=== PATIENT | male | born 1960 | race Hispanic/Latino ===

== ENCOUNTER 2020-08-14 12:03 | Emergency (ER) | payer BC, SELFPAY ==
--- OUTSIDE RECORDS SUMMARY | 2020-08-14 12:10 | XMS REPORT | Summary of Care ---
:1960 Author Organization [facility] Address [address] [place] [address] Care Team Providers Name Role Phone Nestor Sy Unavailable KERVIN Hamilton Electronics Test Engineer (Nurse Practitioner) Endy Murillo MD Primary Care Provider Reason for Visit Reason Comments Assessment Diarrhea Nausea Encounter Details Date Type Department Care Team Description 07/04/2020 Telephone [facility] Pediatric Oscar Murillo ssment; Diarrhea; and Adult Primary MD Endy Nausea Care- [address] [place] [place] [address], [address] [address] [place], [place] [phone] [address] [phone] Allergies Active Allergy Reactions Severity Noted Date Comments Tramadol Nausea and/or Vomiting 08/24/2018 documented as of this encounter (statuses as of 07/04/2020) Medications Medication Sig Dispensed Refills Start Date End Date Status LORazepam 1 mg Take 1 tablet 30 tablet 0 03/16/2019 Active tabletIndications: Anxiety by mouth 2 (two) times daily as needed for Anxiety or Agitation. olmesartan 40 mg Take 1 tablet 90 tablet 3 04/14/2019 Active tabletIndications: by mouth Essential hypertension daily. glimepiride 2 mg tablet Take 2 mg by 0 Active mouth daily with breakfast. JANUVIA 100 mg TAKE ONE 30 tablet 2 02/13/2020 Acti ve tabletIndications: Type 2 TABLET BY diabetes mellitus without MOUTH DAILY complication, without long-term current use of insulin ONETOUCH VERIO TEST STRIPS USE THREE 100 Strip 0 03/29/2020 Active strip TIMES A DAY TO TEST BLOOS SUGARS BRILINTA 90 mg TAKE ONE 60 tablet 2 04/16/2020 Acti ve tabletIndications: NSTEMI TABLET BY (non-ST elevated myocardial MOUTH TWICE A infarction) DAY METOPROLOL SUCCINATE XL 100 TAKE ONE 30 tablet 2 04/16/2020 Active mg 24 hr tabletIndications: TABLET BY Essential hypertension MOUTH DAILY PANTOPRAZOLE 40 mg EC TAKE ONE 30 tablet 2 04/16/2020 Active tabletIndications: TABLET BY Gastroesophageal reflux MOUTH DAILY disease without esophagitis ATORVASTATIN 80 mg TAKE ONE 30 tablet 2 04/16/2020 Active tabletIndications: TABLET BY Hypercholesterolemia MOUTH AT BEDTIME ISOSORBIDE MONONITRATE 30 TAKE ONE 30 tablet 2 04/16/2020 Active mg 24 hr tabletIndications: TABLET BY NSTEMI (non-ST elevated MOUTH DAILY myocardial infarction) documented as of this encounter (statuses as of 07/04/2020) Active Problems Problem Noted Date Pleural effusion on left 08/04/2019 NSTEMI (non-ST elevated myocardial infarction) 018 Type 2 diabetes mellitus without complication 09/05/19 16 Essential hypertension 09/05/2015 Stroke 09/05/2015 Hypercholesterolemia 09/05/2015 documented as of this encounter (statuses as of 07/04/2020) Immunizations Name Administration Dates Next Due Influenza Virus Vaccine Quad .5 mL IM 6+ MO 06/15/2019, 07/14 TDAP 12/02/2018 documented as of this encounter Social History Tobacco Use Types Packs/Day Years Used Date Never Smoker Smokeless Tobacco: Never Used Alcohol Use Drinks/Week oz/Week Comments No 0 Standard drinks or equival ent 6.0 occ 6 Cans of beer Sex Assigned at Date Recorded Not on file documented as of this encounter Last Filed Vital Signs Not on filedocumented in this encounter Miscellaneous Notes Telephone Encounter - Lauren Martinez LVN - 07/04/2020 1:21 PM CSTPSS please contact patient and assist with scheduling urgent care sick visit. Thanks. FING MACHINE OPERATOR Telephone Encounter - Oscar Murillo MD - 07/04/2020 1:19 PM CSTPlease ask patient to make an appointment with Urgent Care elephone Encounter - Lauren Martinez LVN - 07/04/2020 1:17 PM CSTAre you willing to see this patient in office with the below symptoms or should we advise an UC visit? FING MACHINE OPERATOR Telephone Encounter - Indy Ya MA - 07/04/2020 9:53 AM CST07/04/20 9:53 AM Routing to correct clinic Indy Ya MA 07/04/2020 9:53 AM elephone Encounter - Santana Acuna - 07/04/2020 9:41 AM CSTPatient states for last few months he cant keep anything down, he feels nausea, has diarrhea and other GI issues. Patient would like an appointment with Dr. Murillo. documented in this encounter Plan of Treatment Health Maintenance Due Date Last Done Comments HEPATITIS C (HCV) SCREEN 1960 EYE EXAM 09/21/1971 Depression Screening 1973 COLON CANCER SCREENING 09/21/2011 ANNUAL FIT/FOBT COLON CANCER SCREENING FIT 09/21/2011 DNA EVERY 3 YEARS COLON CANCER SCREENING 09/21/2011 SIGMOIDOSCOPY EVERY 5 YEARS COLONOSCOPY 09/21/2011 Colorectal Cancer Screening 09/21/2011 Zoster Recombinant Vaccine 09/21/2011 (SHINGRIX) (1 of 2) URINE MICROALBUMIN 09/30/2017 09/30/2016, 09/05/2015 LDL-C 07/05/2019 07/05/2018, 09/30/2016, 09/05/2015 FOOT EXAM 12/15/2019 12/14/2018, 12/14/2018 HgA1C 12/15/2019 06/15/2019, 03/16/2019, 12/14/2018, Additional history exists INFLUENZA VACCINE (#1) 2020 06/15/2019, 08/10/2018 CREATININE (SERUM) 08/04/2020 08/04/2019, 08/01/2019, 08/10/2018, Additional history exists DTaP,Tdap,and Td Vaccines (2 12/02/2028 12/02/2018 - Td) PNEUMOCOCCAL 0-64 YEARS Aged Out No longe r eligible COMBINED SERIES based on patient 's age to complete this topic documented as of this encounter Results Not on filedocumented in this encounter Insurance Payer Benefit Plan Subscriber ID Effective Dates Phone Address Type / Group BCBS OF [facility] [id number] 2018-Prese [phone] [address] [place] [address] [place] PPO/POS [facility] [id number] [place] [address] documented as of this encounter
--- OUTSIDE RECORDS SUMMARY | 2020-08-14 12:10 | XMS REPORT | Summary of Care ---
:1960 Author Organization [facility] Address [address] [place] [address] Care Team Providers Name Role Phone Nestor Sy Unavailable KERVIN Hamilton Color Coater (Nurse Practitioner) Endy Murillo MD Primary Care Provider Reason for Visit Reason Comments Refill Request Encounter Details Date Type Department Care Team Description 07/12/2020 Refill [facility] Oscar Paz MD Refill Request - [address] [place] [address] [place] [address] [phone] Allergies Active Allergy Reactions Severity Noted Date Comments Tramadol Nausea and/or Vomiting 08/24/2018 documented as of this encounter (statuses as of 07/12/2020) Medications Medication Sig Dispensed Refills Start End Date Status Date LORazepam 1 mg Take 1 30 tablet 0 Activ e tabletIndications: tablet by 9 Anxiety mouth 2 (two) times daily as needed for Anxiety or Agitation. olmesartan 40 mg Take 1 90 tablet 3 Act johnson tabletIndications: tablet by 9 Essential hypertension mouth daily. glimepiride 2 mg tablet Take 2 mg by 0 Active mouth daily with breakfast. JANUVIA 100 mg TAKE ONE 30 tablet 2 Activ e tabletIndications: Type 2 TABLET BY 0 diabetes mellitus without MOUTH DAILY complication, without long-term current use of insulin ONETOUCH VERIO TEST USE THREE 100 Strip 0 Active STRIPS strip TIMES A DAY 0 TO TEST BLOOS SUGARS BRILINTA 90 mg TAKE ONE 60 tablet 1 Activ e tabletIndications: NSTEMI TABLET BY 0 (non-ST elevated MOUTH TWICE myocardial infarction) A DAY ISOSORBIDE MONONITRATE 30 TAKE ONE 30 tablet 1 Active mg 24 hr TABLET BY 0 tabletIndications: NSTEMI MOUTH DAILY (non-ST elevated myocardial infarction) METOPROLOL SUCCINATE XL TAKE ONE 30 tablet 1 Active 100 mg 24 hr TABLET BY 0 tabletIndications: MOUTH DAILY Essential hypertension ATORVASTATIN 80 mg TAKE ONE 30 tablet 1 A ctive tabletIndications: TABLET BY 0 Hypercholesterolemia MOUTH AT BEDTIME PANTOPRAZOLE 40 mg EC TAKE ONE 30 tablet 1 Active tabletIndications: TABLET BY 0 Gastroesophageal reflux MOUTH DAILY disease without esophagitis BRILINTA 90 mg TAKE ONE 60 tablet 2 07/12/20 Disco ntinued tabletIndications: NSTEMI TABLET BY 0 20 (non-ST elevated MOUTH TWICE myocardial infarction) A DAY METOPROLOL SUCCINATE XL TAKE ONE 30 tablet 2 Discontinued 100 mg 24 hr TABLET BY 0 20 tabletIndications: MOUTH DAILY Essential hypertension PANTOPRAZOLE 40 mg EC TAKE ONE 30 tablet 2 07/12/20 Discontinued tabletIndications: TABLET BY 0 20 Gastroesophageal reflux MOUTH DAILY disease without esophagitis ATORVASTATIN 80 mg TAKE ONE 30 tablet 2 07/12/20 D iscontinued tabletIndications: TABLET BY 0 20 Hypercholesterolemia MOUTH AT BEDTIME ISOSORBIDE MONONITRATE 30 TAKE ONE 30 tablet 2 06/14 Discontinued mg 24 hr TABLET BY 0 20 tabletIndications: NSTEMI MOUTH DAILY (non-ST elevated myocardial infarction) documented as of this encounter (statuses as of 07/12/2020) Active Problems Problem Noted Date Pleural effusion on left 08/04/2019 NSTEMI (non-ST elevated myocardial infarction) 018 Type 2 diabetes mellitus without complication 09/05/19 16 Essential hypertension 09/05/2015 Stroke 09/05/2015 Hypercholesterolemia 09/05/2015 documented as of this encounter (statuses as of 07/12/2020) Immunizations Name Administration Dates Next Due Influenza [...] Signs Not on filedocumented in this encounter Plan of Treatment Health [...] Results Not on filedocumented in this encounter Visit Diagnoses Diagnosis NSTEMI (non-ST elevated myocardial infar ction) Acute myocardial infarction, subendocard ial infarction, episode of care unspecified Essential hypertension Unspecified essential hypertension Hypercholesterolemia Pure hypercholesterolemia Gastroesophageal reflux disease without esophagitis Esophageal reflux documented in this encounter Insurance Payer Benefit Plan Subscriber ID Effective Dates Phone Address Type / Group [facility] [id number] 2018-Prese [phone] [address] [place] [id number] [place] [address] documented as of this encounter
--- OUTSIDE RECORDS SUMMARY | 2020-08-14 12:10 | XMS REPORT | Continuity of Care Document ---
:1960 Author Organization [facility] t Address [address] [place] [address] Care Team Providers Name Role Phone Endy Murillo MD Attending Clinician Doctor Unassigned, Name Attending Clinician Unavailable Problems This patient has no known problems. Allergies, Adverse Reactions, Alerts This patient has no known allergies or adverse reactions. Medications This patient has no known medications. Procedures This patient has no known procedures. Encounters Start End Encounter Admission Attending Care Care Encounter Source Date/Time Date/Time Type Type Clinicians Facility Department ID 2020-07-12 2020-07-12 [facility] [id number] 00:00:00 00:00:[address] [facility] [id number] [facility] [id number] Professio [phone] [place] [address] Office Building One 2020-07-04 2020-07-[address] [facility] [id number] 00:00:00 00:00:00 [facility] [id number] [facility] [id number] Professio [phone] [place] [address] Building 2020-04-13 2020-04-13 [facility] [id number] 00:00:00 00:00:[address] [facility] [id number] [facility] [id number] Professio [phone] [place] [address] Office Building One 2020-04-10 2020-04-[address] [facility] [id number] 00:00:00 00:00:[address] [facility] [id number] [place] [id number] Professio [phone] [place] [address] Office Building One 2020-04-10 2020-04-10 Orders Doctor FISH [id number] 00:00:00 00:00:00 Only Unassigned, GUNNAR [id number] [place] [facility] [id number] 2020-03-28 2020-03-28 [facility] [id number] 00:00:00 00:00:[address] [facility] [id number] [place] [id number] Professio [phone] [place] [address] Office Building [facility] 2020-02-13 2020-02-[address] [facility] [id number] 00:00:00 00:00:[address] [facility] [id number] [place] [id number] Professio [phone] [place] [address] Office [facility] One 2019-12-21 2019-12-[address] [facility] [id number] 07:59:17 08:14:17 ne Visit [facility] [id number] [place] [id number] Professio [phone] [address] 2019-12-15 2019-12-[address] [facility] [id number] 00:00:00 00:00:[address] [facility] [id number] [place] [id number] Professio [phone] [place] [address] Office [facility] One 2019-10-03 2019-10-[address] [facility] [id number] 00:00:00 00:00:[address] [facility] [id number] [place] [id number] Professio [phone] [place] 044 Office Building One 2019-09-22 2019-09-22 Orders Doctor FISH [id number] 00:00:00 00:00:00 Only Unassigned, GUNNAR [id number] [place] [facility] [phone] [id number] 2019-09-21 2019-09-21 Office LUIS Murillo [id number] 07:55:58 08:34:[address] [facility] [id number] [facility] [id number] Professio [phone] [place] 044 Office Building One Results This patient has no known results.
[2020-08-14 16:08] LABS: Absolute Lymphocytes (CBC) 2.6 K/uL (0.7-4.9); Basophils % 0.5 % (0-1.3); Hematocrit 45.8 % (39.6-49.0); Lymphocytes % 31.7 % (15.3-44.8); MPV 10.2 fL (7.6-11.3); RBC Red Blood Cell Count 5.17 M/uL (4.33-5.43)
[2020-08-14] MEDS ORDERED: ONDANSETRON 4 MG/2 ML VIAL ONE (16:17)
[2020-08-14] MEDS ORDERED: MORPHINE 4 MG/ML SYR ONE ×2 (16:17→17:29)
[2020-08-14] MEDS ORDERED: NA CHLORIDE 0.9% 1,000 ML ONE (16:17)
[2020-08-14 16:22] LABS: Albumin 3.7 g/dL (3.4-5.0); Bilirubin Direct 0.2 mg/dL (0-0.2); Bilirubin Total 0.7 mg/dL (0.2-1.0); Potassium 4.7 mmol/L (3.5-5.1); Protein, Total 7.5 g/dL (6.4-8.2)
--- NOTE | 2020-08-14 17:15 | RAD REPORT ---
EXAM DESCRIPTION: CT - Abdomen Pelvis Wo Contrast - 08/14/2020 4:59 pm CLINICAL HISTORY: ABD PAIN COMPARISON: CT-STONE PROTOCOL dated 12/04/2012 TECHNIQUE: Axial [address] imaging of the abdomen and pelvis was performed without IV contrast. No IV contrast was given because of allergy, abnormal renal function, patient refusal or physician re quest. No oral contrast administered. All CT scans are performed using dose optimization technique as appropriate and may include automated exposure control or mA/KV adjustment according to patient size. FINDINGS: Trace pleural fluid and parenchymal stranding in the posterior gutter on the left. No righ t lung base abnormality. No pericardial thickening or effusion. The liver, spleen and pancreas show no suspicious findings on non-contrast imaging. Gallbladder and b iliary tree are also without suspicious finding. No hydronephrosis or suspicious renal mass. No significant adrenal finding. Isodense renal masses an d pyelonephritis cannot be excluded in the absence of IV contrast. The urinary bladder is without sig nificant finding. No gastric dilatation gastric wall thickening. A few mildly prominent small bowel loops are present b ut no small bowel dilatation, wall thickening or mass identified. Moderately large stool volume fills but does not dilate the colon from cecum to sigmoid colon. Rectum is decompressed. No free air, angie e fluid or inflammatory stranding. No hernia, mass or bulky lymphadenopathy. Left inguinal hernia rep air clips are present. No suspicious bony findings. IMPRESSION: Moderately large stool volume is present filling but not dilating the entirety of the co jovan from cecum through sigmoid colon. No obstructing mass or active colon process. A few mildly prominent small bowel loops are present. This could be a small bowel enteritis. Patient has a trace amount of pleural fluid and left base parenchymal stranding. This could be scarri ng or minimal reactive fluid. No consolidation or mass. Full assessment is limited is the absence of IV contrast.
--- NOTE | 2020-08-14 17:39 | EDPHYS ---
Physician Documentation [facility] Name: Abbi Campos Age: 59 yrs Sex: Male : 1960 Arrival Date: 08/14/2020 Time: 12:05 Bed 12 Private MD: ED Physician Lilliam Luna HPI: 08/14 23:33 This 59 yrs old Male presents to ER via Ambulatory with complaints of kb Abdominal Pain. 23:33 The patient presents with abdominal pain in the left upper quadrant. Onset: The kb symptoms/episode began/occurred 5 day(s) ago. The symptoms do not radiate. Associated signs and symptoms: none. The symptoms are described as constant. Modifying factors: The symptoms are alleviated by nothing, the symptoms are aggravated by nothing. Severity of pain: At its worst the pain was moderate in the emergency department the pain is unchanged. The patient has not experienced similar symptoms in the past. The patient has not recently seen a physician. Historical: - Allergies: 12:28 tramadol; iw - PMHx: 12:28 Myocardial infarction; Diabetes - NIDDM; Hypertension; CVA; iw - PSHx: 12:28 Heart stents; Hernia repair; iw - Immunization history:: Adult Immunizations. - Social history:: Smoking status: Patient denies any tobacco usage or history of. ROS: 17:20 Constitutional: Negative for fever, chills, and weight loss, Cardiovascular: Negative kb for chest pain, palpitations, and edema, Respiratory: Negative for shortness of breath, cough, wheezing, and pleuritic chest pain, Back: Negative for injury and pain, MS/Extremity: Negative for injury and deformity, Skin: Negative for injury, rash, and discoloration, Neuro: Negative for headache, weakness, numbness, tingling, and seizure. 17:20 Abdomen/GI: Positive for abdominal pain, Negative for nausea, vomiting, and diarrhea. Exam: 17:20 Constitutional: This is a well developed, well nourished patient who is awake, alert, kb and in no acute distress. Head/Face: Normocephalic, atraumatic. Chest/axilla: Normal chest wall appearance and motion. Nontender with no deformity. No lesions are appreciated. Cardiovascular: Regular rate and rhythm with a normal S1 and S2. No gallops, murmurs, or rubs. Normal PMI, no JVD. No pulse deficits. Respiratory: Lungs have equal breath sounds bilaterally, clear to auscultation and percussion. No rales, rhonchi or wheezes noted. No increased work of breathing, no retractions or nasal flaring. Skin: Warm, dry with normal turgor. Normal color with no rashes, no lesions, and no evidence of cellulitis. MS/ Extremity: Pulses equal, no cyanosis. Neurovascular intact. Full, normal range of motion. Neuro: Awake and alert, GCS 15, oriented to person, place, time, and situation. Cranial nerves II-XII grossly intact. Motor strength 5/5 in all extremities. Sensory grossly intact. Cerebellar exam normal. Normal gait. 17:20 Abdomen/GI: Inspection: abdomen appears normal, Bowel sounds: normal, in all quadrants, Palpation: soft, in all quadrants, moderate abdominal tenderness, in the left upper quadrant. Vital Signs: 12:25 BP 105 / 75; Pulse 109; Resp 16 S; Temp 98.5; Pulse Ox 97% on R/A; Weight 94.35 kg; iw Height 5 ft. 8 in. (172.72 cm); Pain 7/10; 15:31 BP 138 / 85; Pulse 86; Resp 16; Temp 97.4(TE); Pulse Ox 98% on R/A; iw 12:25 Body Mass Index 31.63 (94.35 kg, 172.72 cm) iw MDM: 15:48 Patient medically screened. kb 17:20 Data reviewed: vital signs, nurses notes. Data interpreted: Pulse oximetry: on room air kb is 98 %. Interpretation: normal. Counseling: I had a detailed discussion with the patient and/or guardian regarding: the historical points, exam findings, and any diagnostic results supporting the discharge/admit diagnosis, lab results, radiology results, the need for outpatient follow up, a family practitioner, to return to the emergency department if symptoms worsen or persist or if there are any questions or concerns that arise at home. 08/14 15:43 Order name: Basic Metabolic Panel; Complete Time: 16:23 iw 08/14 15:43 Order name: CBC with Diff; Complete Time: 16:15 iw 08/14 15:43 Order name: Hepatic Function; Complete Time: 16:23 iw 08/14 15:43 Order name: Lipase; Complete Time: 16:23 08/14 16:57 Order name: Abdomen ; Complete Time: 17:18 [facility] 08/14 15:43 Order name: IV Saline Lock; Complete Time: 15:43 08/14 15:43 Order name: Labs collected and sent; Complete Time: 16:12 iw Administered Medications: 16:12 Drug: NS 0.9% 1000 ml Route: IV; Rate: 1000 ml; Site: left antecubital; iw 16:12 Drug: morphine 4 mg Route: IVP; Site: left antecubital; iw 16:12 Drug: Zofran (Ondansetron) 4 mg Route: IVP; Site: left antecubital; iw 17:20 Drug: morphine 4 mg Route: IVP; Site: left antecubital; iw Disposition: 08/14/20 17:39 Discharged to Home. Impression: Constipation, unspecified, Enteritis. - Condition is Stable. - Discharge Instructions: Constipation, Adult, [id number]. - Prescriptions for Bentyl 20 mg Oral Tablet - take 1 tablet by ORAL route every 6 hours As needed; 20 tablet. Zofran 4 mg Oral Tablet - take 1 tablet by ORAL route every 6 hours As needed; 20 tablet. - Medication Reconciliation Form, Thank You Letter, Antibiotic Education, Prescription Opioid Use form. - Follow up: Emergency Department; When: As needed; Reason: Worsening of condition. Follow up: Private Physician; When: 2 - 3 days; Reason: Recheck today's complaints, Continuance of care, Re-evaluation by your physician. Addendum: 08/20/2020 19:15 Co-signature as Attending Physician, Lilliam Luna MD. m a2 Signatures: Dispatcher [employer] [facility] Gissel Limon, REJECT OPENER AND FILLER-C REJECT OPENER AND FILLER-Tomb Andreia Infante, BRICE RN Lilliam Luna MD MD ma2 Corrections: (The following items were deleted from the chart) 08/14 16:57 15:49 Abdomen Pelvis W Con+CT.RAD.BRZ ordered. [facility] EDTX 18:27 17:39 08/14/2020 17:39 Discharged to Home. Impression: Constipation, unspecified; iw Enteritis. Condition is Stable. Forms are Medication Reconciliation Form, Thank You Letter, Antibiotic Education, Prescription Opioid Use. Follow up: Emergency Department; When: As needed; Reason: Worsening of condition. Follow up: Private Physician; When: 2 - 3 days; Reason: Recheck today's complaints, Continuance of care, Re-evaluation by your physician. kb
--- NOTE | 2020-08-14 17:39 | ER ---
Nurse's Notes [facility] Name: Abbi Campos Age: 59 yrs Sex: Male : 1960 Arrival Date: 08/14/2020 Time: 12:05 Bed 12 Private MD: Diagnosis: Constipation, unspecified;Enteritis Presentation: 08/14 12:25 Chief complaint: Patient states: LUQ pain since morning, 3 weeks ago had iw colonoscopy and Endoscopy everything was good, denies n/v/d, pain feels like constant pressure. Coronavirus screen: At this time, the client does not indicate any symptoms associated with coronavirus-19. Ebola Screen: Patient negative for fever greater than or equal to 101.5 degrees Fahrenheit, and additional compatible Ebola Virus Disease symptoms Patient denies exposure to infectious person. Patient denies travel to an Ebola-affected area in the 21 days before illness onset. No symptoms or risks identified at this time. Initial Sepsis Screen: Does the patient meet any 2 criteria? No. Patient's initial sepsis screen is negative. Does the patient have a suspected source of infection? No. Patient's initial sepsis screen is negative. Risk Assessment: Do you want to hurt yourself or someone else? Patient reports no desire to harm self or others. Onset of symptoms was August 09, 2020. 12:25 Method Of Arrival: Ambulatory iw 12:25 Acuity: JAYLYN 3 iw Historical: - Allergies: 12:28 tramadol; iw - PMHx: 12:28 Myocardial infarction; Diabetes - NIDDM; Hypertension; CVA; iw - PSHx: 12:28 Heart stents; Hernia repair; iw - Immunization history:: Adult Immunizations. - Social history:: Smoking status: Patient denies any tobacco usage or history of. Screenin:32 Abuse screen: Denies threats or abuse. Denies injuries from another. Nutritional iw screening: No deficits noted. Tuberculosis screening: No symptoms or risk factors identified. Fall Risk IV access (20 points). Assessment: 15:32 Reassessment: Patient appears in no apparent distress at this time. Patient and/or iw family updated on plan of care and expected duration. Pain level reassessed. Gissel at triage to assess pt. Vital Signs: 12:25 BP 105 / 75; Pulse 109; Resp 16 S; Temp 98.5; Pulse Ox 97% on R/A; Weight 94.35 kg; iw Height 5 ft. 8 in. (172.72 cm); Pain 7/10; 15:31 BP 138 / 85; Pulse 86; Resp 16; Temp 97.4(TE); Pulse Ox 98% on R/A; iw 12:25 Body Mass Index 31.63 (94.35 kg, 172.72 cm) iw ED Course: 12:05 Patient arrived in ED. as 12:27 Triage completed. iw 12:29 Arm band placed on. iw 15:48 Gissel Limon FNP-C is PHCP. kb 15:48 Lilliam Luna MD is Attending Physician. kb 15:57 Andreia Infante, RN is Primary Nurse. iw 15:57 Initial lab(s) drawn, by me, sent to lab. Inserted saline lock: 20 gauge in left iw antecubital area, using aseptic technique. Patient maintains SpO2 saturation greater than 95% on room air. 16:59 Abdomen In Process Unspecified. EDMS Administered Medications: 16:12 Drug: NS 0.9% 1000 ml Route: IV; Rate: 1000 ml; Site: left antecubital; iw 16:12 Drug: morphine 4 mg Route: IVP; Site: left antecubital; iw 16:12 Drug: Zofran (Ondansetron) 4 mg Route: IVP; Site: left antecubital; iw 17:20 Drug: morphine 4 mg Route: IVP; Site: left antecubital; iw Outcome: 17:39 Discharge ordered by MD. kb 18:27 Patient left the ED. iw Signatures: Dispatcher [employer] EDMS Gissel Limon FNP-C FNP-Ckb Martinez, Amelia as Andreia Infante, RN RN iw
== END 2020-08-14 18:27 | disposition home or self-care (01) ==
LOC: ER 12:03
DX: K59.00 Constipation, unspecified (principal); K52.9 Noninfective gastroenteritis and colitis, unspecified; I25.2 Old myocardial infarction; E11.9 Type 2 diabetes mellitus without complications; I10 Essential (primary) hypertension; Z86.73 Personal history of transient ischemic attack (TIA), and cerebral infarction without residual deficits; Z95.5 Presence of coronary angioplasty implant and graft
CPT/HCPCS: 36415; 74176; 80048; 80076; 83690; 85025; 96374; 96375; 99284; J2405; J7030

== ENCOUNTER 2023-01-24 18:55 | Observation (INO) | payer BC ==
--- OUTSIDE RECORDS SUMMARY | 2023-01-24 19:12 | XMS REPORT | Continuity of Care Document ---
:1960 Author Organization [facility] t Address [address] [place] [place] [address] Care Team Providers Name Role Phone Carolina Yeh MD Primary Care Physician [phone] Licha Stoddard Attending Clinician Doctor Unassigned, [facility] Attending Clinician Unavailable Carolina Yeh MD Attending Clinician YUNIOR HOOD Attending Clinician Unavailable Yunior Hood DO Attending Clinician Team, [facility] Attending Clinician UnavailDAVID Huizar Attending Clinician Unavailable Violeta Hobbs RN Attending Clinician Unavailable Mally Eduardo MD Attending Clinician Chelsea Dalton Attending Clinician CHELSEA BASSETT Attending Clinician Unavailable Nurse, Adc Pob Immunization Attending Clinician Unavailable David Clark DO Attending Clinician CAROLINA YEH Attending Clinician Unavailable MALLY EDUARDO Attending Clinician Unavailable Fish Gardner PA-C Attending Clinician DEVIKA SALAZAR Attending Clinician Unavailable Rosie Odom MD Attending Clinician Karlo RIDER, Mary Marin Attending Clinician [phone] Keyonna Baltazar MD Attending Clinician Joann RIDER, Jose S Attending Clinician Trisha Jones Attending Clinician Hafsa Lomas Attending Clinician YUNIOR HOOD Admitting Clinician Unavailable Karlo RIDER, Mary Marin Admitting Clinician [phone] Payers Payer Name Policy Type Policy Number Effective Date Expiration Date S ource Problems Condition Condition Condition Status Onset Resolution Last Treating Co mments Source Name Details Category Date Date Treatment Clinician Date Pleural Pleural Disease Active Univers effusion effusion 1-23 ity of on left on left 00:00: [place] 00 [facility] Branch NSTEMI NSTEMI Disease Active 2017-07 Univers (non-ST (non-ST 2-23 ity of elevated elevated 00:00: [place] myocardial myocardial 00 Me dical infarction infarction Br anch ) ) RIGHT SIDE RIGHT Diagnosis Active 2016-11-07 [facility] PAIN SIDE PAIN 11-07 13:04:00 l Active 00:00: [place] 11/07/2016 00 [facility] Type 2 Type 2 Disease Active Univers diabetes diabetes 2-24 ity of mellitus mellitus 00:00: [place] without without 00 Medical complicati complicati Br anch on on Essential Essential Disease Active Uni vers hypertensi hypertensi 2-24 it y of on on 00:00: [place] 00 Medical Branch Hyperchole Hyperchole Disease Active U nivers sterolemia sterolemia 2-24 it y of 00:00: [place] 00 Medical Branch Erectile Erectile Problem Active 2023-01-08 Memoria dysfunctio dysfunctio 10:19:11 l n n Active [place] Problem 01/08/2023 Medical Group,[facility] Injury of Injury of Problem Active 2023-01-08 Memoria kidney kidney 10:19:11 l (disorder) (disorder) He rmann Active Problem 01/08/2023 [facility] Hypertensi Hypertens Problem Resolve 2021-05-15 Memoria ve johnson d 21:52:14 l disorder, disorder, Herm gonzalez systemic systemic arterial arterial (disorder) (disorder) Resolved Problem 05/15/2021 Medical Group,[facility] Myocardial Myocardia Problem Resolve 2021-05-15 Memoria infarction l d 21:52:14 l (disorder) infarction He rmann (disorder) Resolved Problem 05/15/2021 Medical Group Cerebrovas Cerebrova Problem Resolve 2021-05-15 Memoria cular scular d 21:52:14 l accident accident Ja n (disorder) (disorder) Resolved Problem 05/15/2021 Medical [facility] Diabetes Diabetes Problem Resolve 2021-05-15 Memoria mellitus mellitus d 21:52:14 l (disorder) (disorder) He rmann Resolved Problem 05/15/2021 Medical Group History of Past Illness Condition Condition Condition Status Onset Resolution Last Treating Co mments Source Name Details Category Date Date Treatment Clinician Date Pain in Pain in Problem 2016-11-10 2016-11-10 [facility]oria right right 11-07 03:44:53 03:44:53 l shoulder shoulder 05:00: Ja n 11/07/2016 00 11/10/2016 [facility] Allergies, Adverse Reactions, Alerts Allergy Allergy Status Severity Reaction(s) Onset Inactive Treating Comm ents Source Name Type Date Date Clinician TRAMADOL DRUG Active N/V Univers INGREDI 2-12 ity of 00:00: [place] [facility] Tramadol Propensi Active Nausea Univer s ty to and/or 2-12 ity of adverse Vomiting 00:00: [place] reaction Medical s Branch No Known No Known Active Memori a Medicati Medicati l on on Donald Allergie Allergie s s Social History Social Habit Start Date Stop Date Quantity Comments Source History [facility] University o f Alcohol Frequency [facility] [place] [facility] edical Branch History [facility] University o f Alcohol Std [place] [facility] Drinks Branch History [facility] o f Alcohol Binge [place] [facility] al Branch Exposure to 2022-04-08 2022-04-18 Not sure [place] of SARS-CoV-2 00:00:00 06:27:00 [facility] (event) Branch Alcohol intake 2022-04-18 2022-04-18 .86 /d University of 00:00:00 00:00:00 [facility] Tobacco use and 2015-09-05 2015-09-05 Smokeless tobacco Un iversity of exposure 00:00:00 00:00:00 non-user [facility] Alcohol Comment 2015-09-05 2015-09-05 occ Universit y of 00:00:00 00:00:00 [facility] Sex Assigned At [birth year] [facility] [place] [facility] y of 00:00:00 00:00:00 [facility] Smoking Status Start Date Stop Date Source Tobacco smoking status [facility] Medications Ordered Filled Start Stop Current Ordering Indication Dosage Frequency Signature Comments Components Source Medication Medication Date Date Medication? Clinician (SIG) Name Name Mirna 10 Yes 10 mg = 1 Mem oria mg oral 6-26 tab, PO, l tablet 14:11: Daily, PRN Sherry nn 00 for erectile dysfunctio n, # 10 tab, 1 Refill(s), Pharmacy: [facility] [id number] Stendra 100 2021-07 Yes 100 mg = 1 Memoria mg oral 2-12 tab, PO, l tablet 23:43: PRN, PRN [place] 00 Other -See Comment, 30 minutes before sexual activity, # 10 tab, 3 Refill(s), Pharmacy: [facility] [id number], 172.72, cm, 11/19/20 9:13:00 CDT, Height, 88.636, kg, 11/19/20 9:13:00 CDT, Weight HYDROcodone 2021-07- No 1{tbl} 1 tablet, Univers -acetaminop 0- 10-07 Oral, ity of hen (NORCO) 14:00: 13:56 [place]CE[place] 1 [place]325 mg [place] :00 dose, On Medica l tablet 1 Thu Branch tablet 04/18/22 at 0900, PUJA NaCl 0.9% 2021-07- No 1000mL at 999 Uni vers (NS) bolus 0- 10-07 mL/hr, ity of infusion 13:45: 14:00 1,000 mL, [place] as 1,000 mL 00 :00 IV Medical Piggyback, Branch ONCE, 1 dose, On Thu04/18/22 at 0845, STAT ketorolac 2021-07- No 15mg 15 mg, Unive rs (TORADOL) 0-07 10-07 Slow IV ity of injection 12:30: 12:15 Push, [place] 15 mg 00 :00 ONCE, 1 Medical dose, On Branch 10/7/22 at 0730, PUJA metroNIDAZO 2021-07 Yes [id number] 500mg Take 1 Univers LE 500 mg 0-07 [id number] tablet by ity of tablet 00:00: mouth in [place] 00 the Medical morning Branch and 1 tablet in the evening. dicyclomine 2021-07 Yes [id number] 10mg Take 1 Univers (BENTYL) 10 0-07 09750 capsule by i ty of mg capsule 00:00: mouth [place] 00 every 8 Medical (eight) Branch hours as needed for Abdominal pain. ondansetron 2021-07 Yes [id number] 4mg Take 1 Univers 4 mg 0-07 [id number] tablet by ity of disintegrat 00:00: mouth [place] ing tablet 00 every 8 Medica l (eight) Branch hours as needed for Nausea and Vomiting (N/V). metroNIDAZO 2021-07 Yes [id number] 500mg Take 1 Univers LE 500 mg 0-07 [id number] tablet by ity of tablet 00:00: mouth in [place] 00 the Medical morning Branch and 1 tablet in the evening. dicyclomine 2021-07 Yes [id number] 10mg Take 1 Univers (BENTYL) 10 0-07 06719 capsule by i ty of mg capsule 00:00: mouth [place] 00 every 8 Medical (eight) Branch hours as needed for Abdominal pain. ondansetron 2021-07 Yes [id number] 4mg Take 1 Univers 4 mg 0-07 85061 tablet by ity of disintegrat 00:00: mouth [place] ing tablet 00 every 8 Medica l (eight) Branch hours as needed for Nausea and Vomiting (N/V). metroNIDAZO 2021-07 Yes [id number] 500mg Take 1 Univers LE 500 mg 0-07 [id number] tablet by ity of tablet 00:00: mouth in [place] 00 the Medical morning Branch and 1 tablet in the evening. dicyclomine 2021-07 Yes [id number] 10mg Take 1 Univers (BENTYL) 10 0-07 [id number] capsule by i ty of mg capsule 00:00: mouth [place] 00 every 8 Medical (eight) Branch hours as needed for Abdominal pain. ondansetron 2021-07 Yes [id number] 4mg Take 1 Univers 4 mg 0-07 [id number] tablet by ity of disintegrat 00:00: mouth [place] ing tablet 00 every 8 Medica l (eight) Branch hours as needed for Nausea and Vomiting (N/V). metroNIDAZO 2021-07 Yes [id number] 500mg Take 1 Univers LE 500 mg 0-07 [id number] tablet by ity of tablet 00:00: mouth in [place] 00 the Medical morning Branch and 1 tablet in the evening. dicyclomine 2021-07 Yes [id number] 10mg Take 1 Univers (BENTYL) 10 0-07 [id number] capsule by i ty of mg capsule 00:00: mouth [place] 00 every 8 Medical (eight) Branch hours as needed for Abdominal pain. ondansetron 2021-07 Yes [id number] 4mg Take 1 Univers 4 mg 0-07 [id number] tablet by ity of disintegrat 00:00: mouth [place] ing tablet 00 every 8 Medica l (eight) Branch hours as needed for Nausea and Vomiting (N/V). metroNIDAZO 2021-07 Yes [id number] 500mg Take 1 Univers LE 500 mg 0-07 [id number] tablet by ity of tablet 00:00: mouth in [place] 00 the Medical morning Branch and 1 tablet in the evening. dicyclomine 2021-07 Yes [id number] 10mg Take 1 Univers (BENTYL) 10 0-07 [id number] capsule by i ty of mg capsule 00:00: mouth [place] 00 every 8 Medical (eight) Branch hours as needed for Abdominal pain. ondansetron 2021-07 Yes [id number] 4mg Take 1 Univers 4 mg 0-07 [id number] tablet by ity of disintegrat 00:00: mouth [place] ing tablet 00 every 8 Medica l (eight) Branch hours as needed for Nausea and Vomiting (N/V). metroNIDAZO 2021-07 Yes [id number] 500mg Take 1 Univers LE 500 mg 0-07 [id number] tablet by ity of tablet 00:00: mouth in [place] 00 the Medical morning Branch and 1 tablet in the evening. dicyclomine 2021-07 Yes [id number] 10mg Take 1 Univers (BENTYL) 10 0-07 [id number] capsule by i ty of mg capsule 00:00: mouth [place] 00 every 8 Medical (eight) Branch hours as needed for Abdominal pain. ondansetron 2021-07 Yes [id number] 4mg Take 1 Univers 4 mg 0-07 [id number] tablet by ity of disintegrat 00:00: mouth [place] ing tablet 00 every 8 Medica l (eight) Branch hours as needed for Nausea and Vomiting (N/V). ciprofloxac 2021-07- No [id number] 500mg Take 1 Univers in HCl 500 0-04-26 tablet by it y of mg tablet 00:00: 04:59 mouth in [place] 00 :00 the Medical morning Branch and 1 tablet in the evening. Do all this for 7 days. ciprofloxac 2021-07- No [id number] 500mg Take 1 Univers in HCl 500 0-01 19- tablet by it y of mg tablet 00:00: 04:59 mouth in [place] 00 :00 the Medical morning Branch and 1 tablet in the evening. Do all this for 7 days. ATORVASTA Yes [id number] TAKE ONE Univers N 80 mg 8-29 TABLET BY ity of tablet 00:00: MOUTH AT [address] [facility] [id number] TAKE ONE Univers N 80 mg 8-29 TABLET BY ity of tablet 00:00: MOUTH AT [address] [facility] Yes [id number] TAKE ONE Univers N 80 mg 8-29 TABLET BY ity of tablet 00:00: MOUTH AT [address] [facility] Yes [id number] TAKE ONE Univers N 80 mg 8-29 TABLET BY ity of tablet 00:00: MOUTH AT [address] [facility] Yes [id number] TAKE ONE Univers N 80 mg 8-29 TABLET BY ity of tablet 00:00: MOUTH AT [address] [facility] Yes [id number] TAKE ONE Univers N 80 mg 8-29 TABLET BY ity of tablet 00:00: MOUTH AT [address] [facility] 0 Yes [id number] TAKE ONE Univers N 80 mg 8-29 TABLET BY ity of tablet 00:00: MOUTH AT [address] [facility] Yes [id number] TAKE ONE Univers N 80 mg 8-29 TABLET BY ity of tablet 00:00: MOUTH AT [address] [facility] Yes [id number] TAKE ONE Univers N 80 mg 7-18 TABLET BY ity of tablet 00:00: MOUTH AT [place] [facility] 0 2021- No [id number] TAKE ONE Univers N 80 mg 7-18 08-29 TABLET BY ity of tablet 00:00: 15:04 MOUTH AT [place] 00 :31 [facility] 0 Yes [id number] TAKE ONE Univers N 80 mg 6-20 TABLET BY ity of tablet 00:00: MOUTH AT [place] [facility] 0 Yes [id number] TAKE ONE Univers N 80 mg 6-20 TABLET BY ity of tablet 00:00: MOUTH AT [place] [facility] Yes [id number] TAKE ONE Univers N 80 mg 6-20 TABLET BY ity of tablet 00:00: MOUTH AT [place] [facility] 2021- No [id number] TAKE ONE Univers N 80 mg 6-20 07-18 TABLET BY ity of tablet 00:00: 00:00 MOUTH AT [place] 00 :00 [facility] Yes [id number] TAKE ONE Univers N 80 mg 2-28 TABLET BY ity of tablet 00:00: MOUTH AT [place] [address] Yes [id number] TAKE ONE Univers mg tablet 2-28 TABLET BY ity o f 00:00: MOUTH [place] TWICE A Medical DAY [facility] 0 Yes [id number] TAKE ONE Univers N 80 mg 2-28 TABLET BY ity of tablet 00:00: MOUTH AT [place] [address] 0 Yes [id number] TAKE ONE Univers mg tablet 2-28 TABLET BY ity o f 00:00: MOUTH [place] [address] TWICE A Medical DAY [facility] 2021-0 Yes [id number] TAKE ONE Univers N 80 mg 2-28 TABLET BY ity of tablet 00:00: MOUTH AT [place] [address] 0 Yes [id number] TAKE ONE Univers mg tablet 2-28 TABLET BY ity o f 00:00: MOUTH [place] [address] TWICE A Medical DAY [facility] 2021-0 Yes [id number] TAKE ONE Univers N 80 mg 2-28 TABLET BY ity of tablet 00:00: MOUTH AT [place] [address] 2021-0 Yes [id number] TAKE ONE Univers mg tablet 2-28 TABLET BY ity o f 00:00: MOUTH 00 TWICE A Medical DAY Branch ATORVASTATI 2021-0 Yes [id number] TAKE ONE Univers N 80 mg 2-28 TABLET BY ity of tablet 00:00: MOUTH AT [place] 00 BEDTIME Medical Branch BRILINTA 90 2021-0 Yes [id number] TAKE ONE Univers mg tablet 2-28 TABLET BY ity o f 00:00: MOUTH TWICE A Medical DAY Branch ATORVASTATI 2021-0 Yes [id number] TAKE ONE Univers N 80 mg 2-28 TABLET BY ity of tablet 00:00: MOUTH AT [place] BEDTIME Medical Branch BRILINTA 90 2021-0 Yes [id number] TAKE ONE Univers mg tablet 2-28 TABLET BY ity o f 00:00: MOUTH TWICE A Medical DAY Branch ATORVASTATI 2021-0 Yes [id number] TAKE ONE Univers N 80 mg 2-28 TABLET BY ity of tablet 00:00: MOUTH AT [place] BEDTIME Medical Branch BRILINTA 90 2021-0 Yes [id number] TAKE ONE Univers mg tablet 2-28 TABLET BY ity o f 00:00: MOUTH 00 TWICE A Medical DAY Branch BRILINTA 90 2021-0 Yes [id number] TAKE ONE Univers mg tablet 2-28 TABLET BY ity o f 00:00: MOUTH TWICE A Medical DAY Branch BRILIN[place] 90 2021-0 Yes [id number] TAKE ONE Univers mg tablet 2-28 TABLET BY ity o f 00:00: MOUTH 00 TWICE A Medical DAY Branch BRILIN[place] 90 2021-0 Yes [id number] TAKE ONE Univers mg tablet 2-28 TABLET BY ity o f 00:00: MOUTH 00 TWICE A Medical DAY Branch BRILINTA 90 2-0 Yes [id number] TAKE ONE Univers mg tablet 2-28 TABLET BY ity o f 00:00: MOUTH 00 TWICE A Medical DAY Branch BRILINTA 90 2021-0 Yes [id number] TAKE ONE Univers mg tablet 2-28 TABLET BY ity o f 00:00: MOUTH 00 TWICE A Medical DAY Branch BRILINTA 90 2021-0 Yes [id number] TAKE ONE Univers mg tablet 2-28 TABLET BY ity o f 00:00: MOUTH 00 TWICE A Medical DAY Branch BRILINTA 90 2022-0 Yes [id number] TAKE ONE Univers mg tablet 2-28 TABLET BY ity o f 00:00: MOUTH [place] 00 TWICE A Medical DAY Branch BRILINTA 90 2021-0 Yes [id number] TAKE ONE Univers mg tablet 2-28 TABLET BY ity o f 00:00: MOUTH [place] 00 TWICE A Medical DAY Branch BRILINTA 90 2021-0 Yes [id number] TAKE ONE Univers mg tablet 2-28 TABLET BY ity o f 00:00: MOUTH [place] 00 TWICE A Medical DAY Branch BRILINTA 90 2021-0 Yes [id number] TAKE ONE Univers mg tablet 2-28 TABLET BY ity o f 00:00: MOUTH [place] 00 TWICE A Medical DAY Branch BRILINTA 90 2021-0 Yes [id number] TAKE ONE Univers mg tablet 2-28 TABLET BY ity o f 00:00: MOUTH [place] 00 TWICE A Medical DAY Branch BRILINTA 90 2021-0 Yes [id number] TAKE ONE Univers mg tablet 2-28 TABLET BY ity o f 00:00: MOUTH [place] 00 TWICE A Medical DAY Branch ATORVASTATI 2021-0 2021- No [id number] TAKE ONE Univers N 80 mg 2-28 06-20 TABLET BY ity of tablet 00:00: 00:00 MOUTH AT [place] 00 :00 BEDTIME Medical Branch [facility]-0 Yes [id number] TAKE ONE Univers N 80 mg 1-31 TABLET BY ity of tablet 00:00: MOUTH AT [place] 00 BEDTIME Medical Branch [facility] 2021-0 Yes [id number] TAKE ONE Univers mg tablet 1-31 TABLET BY ity o f 00:00: MOUTH [place] 00 TWICE A Medical DAY Branch ATORVASTATI 2021-0 Yes [id number] TAKE ONE Univers N 80 mg 1-31 TABLET BY ity of tablet 00:00: MOUTH AT [place] 00 BEDTIME Medical Branch [facility] 90 2021-0 Yes [id number] TAKE ONE Univers mg tablet 1-31 TABLET BY ity o f 00:00: MOUTH [place] 00 TWICE A Medical DAY Branch chlorhexidi 2021-0 Yes [id number] Apply to Univers ne 4 % 1-12 area(s) ity of external 00:00: once daily [place] as liquid 00 as needed Medical for Wound Branch care. chlorhexidi 0 Yes [id number] Apply to Univers ne 4 % 1-12 area(s) ity of external 00:00: once daily [place] as liquid 00 as needed Medical for Wound Branch care. chlorhexidi 2-0 Yes [id number] Apply to Univers ne 4 % 1-12 area(s) ity of external 00:00: once daily [place] as liquid 00 as needed Medical for Wound Branch care. chlorhexidi 2021-0 Yes [id number] Apply to Univers ne 4 % 1-12 area(s) ity of external 00:00: once daily [place] as liquid 00 as needed Medical for Wound Branch care. chlorhexidi 2021-0 Yes [id number] Apply to Univers ne 4 % 1-12 area(s) ity of external 00:00: once daily [place] as liquid 00 as needed Medical for Wound Branch care. chlorhexidi 2021-0 Yes [id number] Apply to Univers ne 4 % 1-12 area(s) ity of external 00:00: once daily [place] as liquid 00 as needed Medical for Wound Branch care. chlorhexidi 2021-0 Yes [id number] Apply to Univers ne 4 % 1-12 area(s) ity of external 00:00: once daily [place] as liquid 00 as needed Medical for Wound Branch care. chlorhexidi 2021-0 Yes [id number] Apply to Univers ne 4 % 1-12 area(s) ity of external 00:00: once daily [place] as liquid 00 as needed Medical for Wound Branch care. chlorhexidi 2021-0 Yes [id number] Apply to Univers ne 4 % 1-12 area(s) ity of external 00:00: once daily [place] as liquid 00 as needed Medical for Wound Branch care. chlorhexidi 2021-0 Yes [id number] Apply to Univers ne 4 % 1-12 area(s) ity of external 00:00: once daily [place] as liquid 00 as needed Medical for Wound Branch care. chlorhexidi 2021-0 Yes [id number] Apply to Univers ne 4 % 1-12 area(s) ity of external 00:00: once daily [place] liquid 00 as needed Medical for Wound Branch care. chlorhexidi 2-0 Yes [id number] Apply to Univers ne 4 % 1-12 area(s) ity of external 00:00: once daily [place] as liquid 00 as needed Medical for Wound Branch care. chlorhexidi 2-0 Yes [id number] Apply to Univers ne 4 % 1-12 area(s) ity of external 00:00: once daily [place] liquid 00 as needed Medical for Wound Branch care. chlorhexidi 2021-0 Yes [id number] Apply to Univers ne 4 % 1-12 area(s) ity of external 00:00: once daily [place] as liquid 00 as needed Medical for Wound Branch care. chlorhexidi 2021-0 Yes [id number] Apply to Univers ne 4 % 1-12 area(s) ity of external 00:00: once daily [place] liquid 00 as needed Medical for Wound Branch care. chlorhexidi 2021-0 Yes [id number] Apply to Univers ne 4 % 1-12 area(s) ity of external 00:00: once daily [place] liquid 00 as needed Medical for Wound Branch care. chlorhexidi 2021-0 Yes [id number] Apply to Univers ne 4 % 1-12 area(s) ity of external 00:00: once daily [place] liquid 00 as needed Medical for Wound Branch care. chlorhexidi 2021-0 Yes [id number] Apply to [facility] ne 4 % 1-12 area(s) ity of external 00:00: once daily [place] as liquid 00 as needed Medical for Wound Branch care. chlorhexidi 2021-0 Yes [id number] Apply to [facility] ne 4 % 1-12 area(s) ity of external 00:00: once daily [place] as liquid 00 as needed Medical for Wound Branch care. chlorhexidi 2021-0 Yes [id number] Apply to [facility] ne 4 % 1-12 area(s) ity of external 00:00: once daily [place] as liquid 00 as needed Medical for Wound Branch care. chlorhexidi 2021-0 Yes [id number] Apply to [facility] ne 4 % 1-12 area(s) ity of external 00:00: once daily [place] as liquid 00 as needed Medical for Wound Branch care. chlorhexidi 0 Yes [id number] Apply to [facility] ne 4 % 1-12 area(s) ity of external 00:00: once daily [place] liquid 00 as needed Medical for Wound Branch care. doxycycline 2021- No [id number] 100mg Take 1 Univers hyclate 100 07-24 tablet by it y of mg tablet 00:00: 05:59 [place] 2 [place] 00 :[place] (two) Medical times Branch daily for 10 days. BRILINTA 90 2021-0 Yes [id number] TAKE ONE Univers mg tablet 1-10 TABLET BY ity o f 00:00: MOUTH [place] 00 TWICE A Medical DAY Branch BRILINTA 90 2021-0 Yes [id number] TAKE ONE Univers mg tablet 1-10 TABLET BY ity o f 00:00: MOUTH [place] 00 TWICE A Medical DAY Branch BRILINTA 90 2021-0 2022- No [id number] TAKE ONE Univers mg tablet 1-10 -31 TABLET BY ity of 00:00: 00:00 MOUTH [place] 00 :00 TWICE A Medical DAY Branch ATORVASTATI 2021-0 Yes [id number] TAKE ONE Univers N 80 mg 1-03 TABLET BY ity of tablet 00:00: MOUTH AT [place] 00 BEDTIME Medical Branch ATORVASTATI 0 Yes [id number] TAKE ONE Univers N 80 mg 1-03 TABLET BY ity of tablet 00:00: MOUTH AT [place] 00 BEDTIME Medical Branch ATORVASTATI 2021-0 2- No [id number] TAKE ONE Univers N 80 mg 1-03 -31 TABLET BY ity of tablet 00:00: 00:00 MOUTH AT [place] 00 :00 BEDTIME Medical Branch PANTOPRAZOL 2020-07 Yes [id number] TAKE ONE Univers E 40 mg EC 2-21 TABLET BY ity of tablet 00:00: MOUTH [place] 00 DAILY Medical Branch METOPROLOL 2020-07 Yes [id number] TAKE ONE Univers SUCCINATE 2-21 TABLET BY ity o f XL 100 mg 00:00: MOUTH [place] 24 hr 00 DAILY Medical tablet Branch PANTOPRAZOL 2020-07 Yes [id number] TAKE ONE Univers E 40 mg EC 2-21 TABLET BY ity of tablet 00:00: MOUTH [place] 00 DAILY Medical Branch METOPROLOL 2020-07 Yes [id number] TAKE ONE Univers SUCCINATE 2-21 TABLET BY ity o f XL 100 mg 00:00: MOUTH [place] 24 hr 00 DAILY Medical tablet Branch PANTOPRAZOL 2020-07 Yes [id number] TAKE ONE Univers E 40 mg EC 2-21 TABLET BY ity of tablet 00:00: MOUTH [place] 00 DAILY Medical Branch METOPROLOL 2020-07 Yes [id number] TAKE ONE Univers SUCCINATE 2-21 TABLET BY ity o f XL 100 mg 00:00: MOUTH [place] 24 hr 00 DAILY Medical tablet Branch PANTOPRAZOL 2020-07 Yes [id number] TAKE ONE Univers E 40 mg EC 2-21 TABLET BY ity of tablet 00:00: MOUTH [place] 00 DAILY Medical Branch METOPROLOL 2020-07 Yes [id number] TAKE ONE Univers SUCCINATE 2-21 TABLET BY ity o f XL 100 mg 00:00: [facility] 24 hr DAILY Medical tablet Branch PANTOPRAZOL 2020-07 Yes [id number] TAKE ONE Univers E 40 mg EC 2-21 TABLET BY ity of tablet 00:00: [facility] DAILY Medical Branch METOPROLOL 2020-07 Yes [id number] TAKE ONE Univers SUCCINATE 2-21 TABLET BY ity o f XL 100 mg 00:00: [facility] 24 hr DAILY Medical tablet Branch PANTOPRAZOL 2020-07 Yes [id number] TAKE ONE Univers E 40 mg EC 2-21 TABLET BY ity of tablet 00:00: [facility] DAILY Medical Branch METOPROLOL 2020-07 Yes [id number] TAKE ONE Univers SUCCINATE 2-21 TABLET BY ity o f XL 100 mg 00:00: [facility] 24 hr DAILY Medical tablet Branch PANTOPRAZOL 2020-07 Yes [id number] TAKE ONE Univers E 40 mg EC 2-21 TABLET BY ity of tablet 00:00: [facility] DAILY Medical Branch METOPROLOL 2020-07 Yes [id number] TAKE ONE Univers SUCCINATE 2-21 TABLET BY ity o f XL 100 mg 00:00: [facility] 24 hr DAILY Medical tablet Branch PANTOPRAZOL 2020-07 Yes [id number] TAKE ONE Univers E 40 mg EC 2-21 TABLET BY ity of tablet 00:00: [facility] DAILY Medical Branch METOPROLOL 2020-07 Yes [id number] TAKE ONE Univers SUCCINATE 2-21 TABLET BY ity o f XL 100 mg 00:00: [facility] 24 hr DAILY Medical tablet Branch PANTOPRAZOL 2020-07 Yes [id number] TAKE ONE Univers E 40 mg EC 2-21 TABLET BY ity of tablet 00:00: [facility] DAILY Medical Branch METOPROLOL 2020-07 Yes [id number] TAKE ONE [facility] SUCCINATE 2-21 TABLET BY ity o f XL 100 mg 00:00: [facility] 24 hr DAILY Medical tablet Branch PANTOPRAZOL 2020-07 Yes [id number] TAKE ONE [facility] E 40 mg EC 2-21 TABLET BY ity of tablet 00:00: [facility] DAILY Medical Branch METOPROLOL 2020-07 Yes [id number] TAKE ONE [facility] SUCCINATE 2-21 TABLET BY ity o f XL 100 mg 00:00: MOUTH [place] 24 hr 00 DAILY Medical tablet Branch PANTOPRAZOL 2020-07 Yes [id number] TAKE ONE [facility] E 40 mg EC 2-21 TABLET BY ity of tablet 00:00: MOUTH [place] DAILY Medical Branch METOPROLOL 2020-07 Yes [id number] TAKE ONE [facility] SUCCINATE 2-21 TABLET BY ity o f XL 100 mg 00:00: [facility] 24 hr DAILY Medical tablet Branch PANTOPRAZOL 2020-07 Yes [id number] TAKE ONE [facility] E 40 mg EC 2-21 TABLET BY ity of tablet 00:00: MOUTH [place] DAILY Medical Branch METOPROLOL 2020-07 Yes [id number] TAKE ONE [facility] SUCCINATE 2-21 TABLET BY ity o f XL 100 mg 00:00: [facility] 24 hr DAILY Medical tablet Branch PANTOPRAZOL 2020-07 Yes [id number] TAKE ONE [facility] E 40 mg EC 2-21 TABLET BY ity of tablet 00:00: [facility] DAILY Medical Branch METOPROLOL 2020-07 Yes [id number] TAKE ONE [facility] SUCCINATE 2-21 TABLET BY ity o f XL 100 mg 00:00: [facility] 24 hr DAILY Medical tablet Branch PANTOPRAZOL 2020-07 Yes [id number] TAKE ONE [facility] E 40 mg EC 2-21 TABLET BY ity of tablet 00:00: [facility] DAILY Medical Branch METOPROLOL 2020-07 Yes [id number] TAKE ONE [facility] SUCCINATE 2-21 TABLET BY ity o f XL 100 mg 00:00: [facility] 24 hr DAILY Medical tablet Branch PANTOPRAZOL 2020-07 Yes [id number] TAKE ONE [facility] E 40 mg EC 2-21 TABLET BY ity of tablet 00:00: [facility] DAILY Medical Branch METOPROLOL 2020-07 Yes [id number] TAKE ONE [facility] SUCCINATE 2-21 TABLET BY ity o f XL 100 mg 00:00: [facility] 24 hr 00 DAILY Medical tablet Branch PANTOPRAZOL 2020-07 Yes [id number] TAKE ONE [facility] E 40 mg EC 2-21 TABLET BY ity of tablet 00:00: [facility] 00 DAILY Medical Branch METOPROLOL 2020-07 Yes [id number] TAKE ONE [facility] SUCCINATE 2-21 TABLET BY ity o f XL 100 mg 00:00: [facility] 24 hr 00 DAILY Medical tablet Branch PANTOPRAZOL 2020-07 Yes [id number] TAKE ONE [facility] E 40 mg EC 2-21 TABLET BY ity of tablet 00:00: [facility] 00 DAILY Medical Branch METOPROLOL 2020-07 Yes [id number] TAKE ONE [facility] SUCCINATE 2-21 TABLET BY ity o f XL 100 mg 00:00: [facility] 24 hr DAILY Medical tablet Branch PANTOPRAZOL 2020-07 Yes [id number] TAKE ONE [facility] E 40 mg EC 2-21 TABLET BY ity of tablet 00:00: [facility] 00 DAILY Medical Branch METOPROLOL 2020-07 Yes [id number] TAKE ONE [facility] SUCCINATE 2-21 TABLET BY ity o f XL 100 mg 00:00: [facility] 24 hr DAILY Medical tablet Branch PANTOPRAZOL 2020-07 Yes [id number] TAKE ONE [facility] E 40 mg EC 2-21 TABLET BY ity of tablet 00:00: [facility] DAILY Medical Branch METOPROLOL 2020-07 Yes [id number] TAKE ONE [facility] SUCCINATE 2-21 TABLET BY ity o f XL 100 mg 00:00: [facility] 24 hr DAILY Medical tablet Branch PANTOPRAZOL 2020-07 Yes [id number] TAKE ONE [facility] E 40 mg EC 2-21 TABLET BY ity of tablet 00:00: [facility] DAILY Medical Branch METOPROLOL 2020-07 Yes [id number] TAKE ONE [facility] SUCCINATE 2-21 TABLET BY ity o f XL 100 mg 00:00: [facility] 24 hr DAILY Medical tablet Branch PANTOPRAZOL 2020-07 Yes [id number] TAKE ONE [facility] E 40 mg EC 2-21 TABLET BY ity of tablet 00:00: [facility] DAILY Medical Branch METOPROLOL 2020-07 Yes [id number] TAKE ONE [facility] SUCCINATE 2-21 TABLET BY ity o f XL 100 mg 00:00: [facility] 24 hr DAILY Medical tablet Branch PANTOPRAZOL 2020-07 Yes [id number] TAKE ONE [facility] E 40 mg EC 2-21 TABLET BY ity of tablet 00:00: [facility] 00 DAILY Medical Branch METOPROLOL 2020-07 Yes [id number] TAKE ONE [facility] SUCCINATE 2-21 TABLET BY ity o f XL 100 mg 00:00: [facility] 24 hr DAILY Medical tablet Branch PANTOPRAZOL 2020-07 Yes [id number] TAKE ONE [facility] E 40 mg EC 2-21 TABLET BY ity of tablet 00:00: [facility] 00 DAILY Medical Branch METOPROLOL 2020-07 Yes [id number] TAKE ONE [facility] SUCCINATE 2-21 TABLET BY ity o f XL 100 mg 00:00: MOUTH [place] 24 hr DAILY Medical tablet Branch PANTOPRAZOL 2020-07 Yes [id number] TAKE ONE [facility] E 40 mg EC 2-21 TABLET BY ity of tablet 00:00: MOUTH [place] DAILY Medical Branch METOPROLOL 2020-07 Yes [id number] TAKE ONE [facility] SUCCINATE 2-21 TABLET BY ity o f XL 100 mg 00:00: MOUTH [place] 24 hr DAILY Medical tablet Branch PANTOPRAZOL 2020-07 Yes [id number] TAKE ONE [facility] E 40 mg EC 2-21 TABLET BY ity of tablet 00:00: MOUTH [place] DAILY Medical Branch METOPROLOL 2020-07 Yes [id number] TAKE ONE [facility] SUCCINATE 2-21 TABLET BY ity o f XL 100 mg 00:00: MOUTH [place] 24 hr DAILY Medical tablet Branch ATORVASTATI 2020-07 Yes [id number] TAKE ONE [facility] N 80 mg 1-30 TABLET BY ity of tablet 00:00: MOUTH AT [place] [employer] [facility] Medical Branch ATORVASTATI 2020-07 Yes [id number] TAKE ONE [facility] N 80 mg 1-30 TABLET BY ity of tablet 00:00: MOUTH AT [address] Medical Branch ATORVASTATI 2020-07 Yes [id number] TAKE ONE [facility] N 80 mg 1-30 TABLET BY ity of tablet 00:00: MOUTH AT [address] Medical Branch PANTOPRAZOL 2020-07 Yes [id number] TAKE ONE [facility] E 40 mg EC 1-17 TABLET BY ity of tablet 00:00: [facility] DAILY Medical Branch PANTOPRAZOL 2020-07 Yes [id number] TAKE ONE [facility] E 40 mg EC 1-17 TABLET BY ity of tablet 00:00: MOUTH [place] DAILY Medical Branch PANTOPRAZOL 2020-07- No [id number] TAKE ONE [facility] E 40 mg EC 1-17 12-21 TABLET BY ity of tablet 00:00: 00:00 [facility] 00 :00 DAILY Medical Branch ATORVASTATI 2020-07 Yes [id number] TAKE ONE [facility] N 80 mg 1-01 TABLET BY it[facility] tablet 00:00: [address] [facility] ATORVASTA 2020-07 Yes [id number] TAKE ONE [facility] N 80 mg 1-01 TABLET BY ity of tablet 00:00: MOUTH AT [place] BEDTIME [facility]07 Yes [id number] TAKE ONE [facility] N 80 mg 1-01 TABLET BY ity of tablet 00:00: MOUTH AT [place] BEDTIME [facility] 2020-07 Yes [id number] TAKE ONE [facility] N 80 mg 1-01 TABLET BY ity of tablet 00:00: MOUTH AT [place] BEDTIME [facility] 2020-07 Yes [id number] TAKE ONE [facility] N 80 mg 1-01 TABLET BY ity of tablet 00:00: MOUTH AT [place] BEDTIME [facility] 2020-07- No [id number] TAKE ONE [facility] N 80 mg 1-01 11-30 TABLET BY ity of tablet 00:00: 00:00 MOUTH AT [place] 00 :00 BEDTIME Medical Branch BRILINTA 90 2020-07 Yes [id number] TAKE ONE [facility] mg tablet 0-19 TABLET BY ity o f 00:00: MOUTH [place] 00 TWICE A Medical DAY Branch BRILINTA 90 2020-07 Yes [id number] TAKE ONE [facility] mg tablet 0-19 TABLET BY ity o f 00:00: MOUTH 00 TWICE A Medical DAY Branch BRILINTA 90 2020-07 Yes [id number] TAKE ONE [facility] mg tablet 0-19 TABLET BY ity o f 00:00: MOUTH [place] 00 TWICE A Medical DAY Branch BRILINTA 90 2020-07 Yes [id number] TAKE ONE [facility] mg tablet 0-19 TABLET BY ity o f 00:00: MOUTH [place] 00 TWICE A Medical DAY Branch BRILINTA 90 2020-07 Yes [id number] TAKE ONE [facility] mg tablet 0-19 TABLET BY ity o f 00:00: MOUTH [place] 00 TWICE A Medical DAY Branch BRILINTA 90 2020-07 Yes [id number] TAKE ONE [facility] mg tablet 0-19 TABLET BY ity o f 00:00: MOUTH 00 TWICE A Medical DAY Branch BRILINTA 90 2020-07 Yes [id number] TAKE ONE [facility] mg tablet 0-19 TABLET BY ity o f 00:00: MOUTH 00 TWICE A Medical DAY Branch BRILINTA 90 2020-07 Yes [id number] TAKE ONE [facility] mg tablet 0-19 TABLET BY ity o f 00:00: MOUTH 00 TWICE A Medical DAY Branch BRILINTA 90 2020-07 Yes [id number] TAKE ONE [facility] mg tablet 0-19 TABLET BY ity o f 00:00: MOUTH [place] 00 TWICE A Medical DAY Branch BRILINTA 90 2020-1 2- No [id number] TAKE ONE [facility] mg tablet 0-19 01-10 TABLET BY ity of 00:00: 00:00 MOUTH [place] 00 :00 TWICE A Medical DAY Branch ATORVASTATI 2020-0 Yes [id number] TAKE ONE [facility] N 80 mg 9-29 TABLET BY ity of tablet 00:00: MOUTH AT [place] 00 BEDTIME Medical Branch ATORVASTATI 2020-0 Yes [id number] TAKE ONE [facility] N 80 mg 9-29 TABLET BY ity of tablet 00:00: MOUTH AT [place] 00 BEDTIME Medical Branch ATORVASTATI 2020-0 2020- No [id number] TAKE ONE [facility] N 80 mg 9-29 - TABLET BY ity of tablet 00:00: 00:00 MOUTH AT [place] 00 :00 BEDTIME Medical Branch BRILINTA 90 2020-0 Yes [id number] TAKE ONE [facility] mg tablet 9-22 TABLET BY ity o f 00:00: MOUTH [place] 00 TWICE A Medical DAY Branch PANTOPRAZOL 2020-0 Yes [id number] TAKE ONE [facility] E 40 mg EC 9-22 TABLET BY ity of tablet 00:00: MOUTH [place] 00 DAILY Medical Branch METOPROLOL 2020-0 Yes [id number] TAKE ONE [facility] SUCCINATE 9-22 TABLET BY ity o f XL 100 mg 00:00: MOUTH [place] 24 hr 00 DAILY Medical tablet Branch BRILINTA 90 2020-0 Yes [id number] TAKE ONE [facility] mg tablet 9-22 TABLET BY ity o f 00:00: MOUTH [place] 00 TWICE A Medical DAY Branch PANTOPRAZOL 2020-0 Yes [id number] TAKE ONE [facility] E 40 mg EC 9-22 TABLET BY ity of tablet 00:00: MOUTH [place] 00 DAILY Medical Branch METOPROLOL 2020-0 Yes [id number] TAKE ONE [facility] SUCCINATE 9-22 TABLET BY ity o f XL 100 mg 00:00: MOUTH [place] 24 hr 00 DAILY Medical tablet Branch PANTOPRAZOL 2020-0 Yes [id number] TAKE ONE [facility] E 40 mg EC 9-22 TABLET BY ity of tablet 00:00: MOUTH [place] 00 DAILY Medical Branch METOPROLOL 2020-0 Yes [id number] TAKE ONE [facility] SUCCINATE 9-22 TABLET BY ity o f XL 100 mg 00:00: [facility] 24 hr 00 DAILY Medical tablet Branch PANTOPRAZOL 2020-0 Yes [id number] TAKE ONE [facility] E 40 mg EC 9-22 TABLET BY ity of tablet 00:00: [facility] 00 DAILY Medical Branch METOPROLOL 0 Yes [id number] TAKE ONE [facility] SUCCINATE 9-22 TABLET BY ity o f XL 100 mg 00:00: [facility] 24 hr DAILY Medical tablet Branch PANTOPRAZOL 2020-0 Yes [id number] TAKE ONE [facility] E 40 mg EC 9-22 TABLET BY ity of tablet 00:00: [facility] 00 DAILY Medical Branch METOPROLOL 0 Yes [id number] TAKE ONE [facility] SUCCINATE 9-22 TABLET BY ity o f XL 100 mg 00:00: [facility] 24 hr DAILY Medical tablet Branch PANTOPRAZOL 0 Yes [id number] TAKE ONE [facility] E 40 mg EC 9-22 TABLET BY ity of tablet 00:00: [facility] DAILY Medical Branch METOPROLOL 0 Yes [id number] TAKE ONE [facility] SUCCINATE 9-22 TABLET BY ity o f XL 100 mg 00:00: [facility] 24 hr DAILY Medical tablet Branch PANTOPRAZOL 0 Yes [id number] TAKE ONE [facility] E 40 mg EC 9-22 TABLET BY ity of tablet 00:00: [facility] DAILY Medical Branch METOPROLOL 0 Yes [id number] TAKE ONE [facility] SUCCINATE 9-22 TABLET BY ity o f XL 100 mg 00:00: [facility] 24 hr DAILY Medical tablet Branch METOPROLOL 2020-0 Yes [id number] TAKE ONE [facility] SUCCINATE 9-22 TABLET BY ity o f XL 100 mg 00:00: [facility] 24 hr 00 DAILY Medical tablet Branch METOPROLOL 2020-0 Yes [id number] TAKE ONE [facility] SUCCINATE 9-22 TABLET BY ity o f XL 100 mg 00:00: [facility] 24 hr 00 DAILY Medical tablet Branch BRILINTA 90 2020-0 Yes [id number] TAKE ONE [facility] mg tablet 9-22 TABLET BY ity o f 00:00: MOUTH [place] 00 TWICE A Medical DAY Branch PANTOPRAZOL 2020-0 Yes [id number] TAKE ONE [facility] E 40 mg EC 9-22 TABLET BY ity of tablet 00:00: [facility] 00 DAILY Medical Branch METOPROLOL 2020-0 Yes [id number] TAKE ONE [facility] SUCCINATE 9-22 TABLET BY ity o f XL 100 mg 00:00: MOUTH [place] 24 hr 00 DAILY Medical tablet Branch METOPROLOL 2020-0 2020- No [id number] TAKE ONE [facility] SUCCINATE 9-22 12-21 TABLET BY ity of XL 100 mg 00:00: 00:00 MOUTH [place] 24 hr 00 :00 DAILY Medical tablet Branch PANTOPRAZOL 2020-0 2021- No [id number] TAKE ONE [facility] E 40 mg EC - 11-17 TABLET BY ity of tablet 00:00: 00:00 MOUTH [place] 00 :00 DAILY Medical Branch BRILINTA 90 2020-0 2021- No [id number] TAKE ONE [facility] mg tablet 04-03-19 TABLET BY ity of 00:00: 00:00 MOUTH [place] 00 :00 TWICE A Medical DAY Branch BRILINTA 90 2020-0 Yes [id number] TAKE ONE [facility] mg tablet 8-31 TABLET BY ity o f 00:00: MOUTH [place] 00 TWICE A Medical DAY Branch BRILINTA 90 2020-0 Yes [id number] TAKE ONE [facility] mg tablet 8-31 TABLET BY ity o f 00:00: MOUTH [place] 00 TWICE A Medical DAY Branch BRILINTA 90 2020-0 202- No [id number] TAKE ONE [facility] mg tablet -- TABLET BY ity of 00:00: 00:00 MOUTH [place] 00 :00 TWICE A Medical DAY Branch BRILINTA 90 2020-0 2021- No [id number] TAKE ONE [facility] mg tablet -- TABLET BY ity of 00:00: 00:00 MOUTH [place] 00 :00 TWICE A Medical DAY Branch PANTOPRAZOL 2020-0 Yes [id number] TAKE ONE [facility] E 40 mg EC 8-03 TABLET BY ity of tablet 00:00: MOUTH [place] 00 DAILY Medical Branch METOPROLOL 2020-0 Yes [id number] TAKE ONE [facility] SUCCINATE 8-03 TABLET BY ity o f XL 100 mg 00:00: MOUTH [place] 24 hr 00 DAILY Medical tablet Branch ISOSORBIDE 2020-0 Yes [id number] TAKE ONE [facility] MONONITRATE 8-03 TABLET BY ity of 30 mg 24 hr 00:00: MOUTH [place] tablet 00 DAILY Medical Branch PANTOPRAZOL 2020-0 Yes [id number] TAKE ONE [facility] E 40 mg EC 8-03 TABLET BY ity of tablet 00:00: MOUTH [place] 00 DAILY Medical Branch METOPROLOL 2021-0 Yes [id number] TAKE ONE [facility] SUCCINATE 8-03 TABLET BY ity o f XL 100 mg 00:00: MOUTH [place] 24 hr 00 DAILY Medical tablet Branch ISOSORBIDE 1-0 Yes [id number] TAKE ONE [facility] MONONITRATE 8-03 TABLET BY ity of 30 mg 24 hr 00:00: MOUTH [place] tablet 00 DAILY Medical Branch ISOSORBIDE 1-0 Yes [id number] TAKE ONE [facility] MONONITRATE 8-03 TABLET BY ity of 30 mg 24 hr 00:00: MOUTH [place] tablet 00 DAILY Medical Branch ISOSORBIDE 1-0 Yes [id number] TAKE ONE [facility] MONONITRATE 8-03 TABLET BY ity of 30 mg 24 hr 00:00: MOUTH [place] tablet 00 DAILY Medical Branch ISOSORBIDE 1-0 Yes [id number] TAKE ONE [facility] MONONITRATE 8-03 TABLET BY ity of 30 mg 24 hr 00:00: MOUTH [place] tablet 00 DAILY Medical Branch ISOSORBIDE 1-0 Yes [id number] TAKE ONE [facility] MONONITRATE 8-03 TABLET BY ity of 30 mg 24 hr 00:00: MOUTH [place] tablet 00 DAILY Medical Branch ISOSORBIDE 1-0 Yes [id number] TAKE ONE [facility] MONONITRATE 8-03 TABLET BY ity of 30 mg 24 hr 00:00: MOUTH [place] tablet 00 DAILY Medical Branch ISOSORBIDE 1-0 Yes [id number] TAKE ONE [facility] MONONITRATE 8-03 TABLET BY ity of 30 mg 24 hr 00:00: MOUTH [place] tablet 00 DAILY Medical Branch ISOSORBIDE 1-0 Yes [id number] TAKE ONE [facility] MONONITRATE 8-03 TABLET BY ity of 30 mg 24 hr 00:00: MOUTH [place] tablet 00 DAILY Medical Branch ISOSORBIDE 1-0 Yes [id number] TAKE ONE [facility] MONONITRATE 8-03 TABLET BY ity of 30 mg 24 hr 00:00: MOUTH [place] tablet 00 DAILY Medical Branch ISOSORBIDE 1-0 Yes [id number] TAKE ONE [facility] MONONITRATE 8-03 TABLET BY ity of 30 mg 24 hr 00:00: MOUTH [place] tablet 00 DAILY Medical Branch ISOSORBIDE 1-0 Yes [id number] TAKE ONE [facility] MONONITRATE 8-03 TABLET BY ity of 30 mg 24 hr 00:00: MOUTH [place] tablet 00 DAILY Medical Branch ISOSORBIDE 1-0 Yes [id number] TAKE ONE [facility] MONONITRATE 8-03 TABLET BY ity of 30 mg 24 hr 00:00: MOUTH [place] tablet 00 DAILY Medical Branch ISOSORBIDE 2021-0 Yes [id number] TAKE ONE [facility] MONONITRATE 8-03 TABLET BY ity of 30 mg 24 hr 00:00: MOUTH [place] tablet 00 DAILY Medical Branch ISOSORBIDE 1-0 Yes [id number] TAKE ONE [facility] MONONITRATE 8-03 TABLET BY ity of 30 mg 24 hr 00:00: MOUTH [place] tablet 00 DAILY Medical Branch ISOSORBIDE 1-0 Yes [id number] TAKE ONE [facility] MONONITRATE 8-03 TABLET BY ity of 30 mg 24 hr 00:00: MOUTH [place] tablet 00 DAILY Medical Branch ISOSORBIDE 1-0 Yes [id number] TAKE ONE [facility] MONONITRATE 8-03 TABLET BY ity of 30 mg 24 hr 00:00: MOUTH [place] tablet 00 DAILY Medical Branch ISOSORBIDE 1-0 Yes [id number] TAKE ONE [facility] MONONITRATE 8-03 TABLET BY ity of 30 mg 24 hr 00:00: MOUTH [place] tablet 00 DAILY Medical Branch ISOSORBIDE 1-0 Yes [id number] TAKE ONE [facility] MONONITRATE 8-03 TABLET BY ity of 30 mg 24 hr 00:00: MOUTH [place] tablet 00 DAILY Medical Branch ISOSORBIDE 1-0 Yes [id number] TAKE ONE [facility] MONONITRATE 8-03 TABLET BY ity of 30 mg 24 hr 00:00: MOUTH [place] tablet 00 DAILY Medical Branch ISOSORBIDE 1-0 Yes [id number] TAKE ONE [facility] MONONITRATE 8-03 TABLET BY ity of 30 mg 24 hr 00:00: MOUTH [place] tablet 00 DAILY Medical Branch ISOSORBIDE 1-0 Yes [id number] TAKE ONE [facility] MONONITRATE 8-03 TABLET BY ity of 30 mg 24 hr 00:00: MOUTH [place] tablet 00 DAILY Medical Branch ISOSORBIDE 2021-0 Yes [id number] TAKE ONE [facility] MONONITRATE 8-03 TABLET BY ity of 30 mg 24 hr 00:00: MOUTH [place] tablet 00 DAILY Medical Branch ISOSORBIDE 1-0 Yes [id number] TAKE ONE [facility] MONONITRATE 8-03 TABLET BY ity of 30 mg 24 hr 00:00: MOUTH [place] tablet 00 DAILY Medical Branch ISOSORBIDE 1-0 Yes [id number] TAKE ONE [facility] MONONITRATE 8-03 TABLET BY ity of 30 mg 24 hr 00:00: MOUTH [place] tablet 00 DAILY Medical Branch ISOSORBIDE 1-0 Yes [id number] TAKE ONE [facility] MONONITRATE 8-03 TABLET BY ity of 30 mg 24 hr 00:00: MOUTH [place] tablet 00 DAILY Medical Branch ISOSORBIDE 2020-0 Yes [id number] TAKE ONE [facility] MONONITRATE 8-03 TABLET BY ity of 30 mg 24 hr 00:00: MOUTH [place] tablet 00 DAILY Medical Branch ISOSORBIDE 2020-0 Yes [id number] TAKE ONE [facility] MONONITRATE 8-03 TABLET BY ity of 30 mg 24 hr 00:00: MOUTH [place] tablet 00 DAILY Medical Branch ISOSORBIDE 2020-0 Yes [id number] TAKE ONE [facility] MONONITRATE 8-03 TABLET BY ity of 30 mg 24 hr 00:00: MOUTH [place] tablet 00 DAILY Medical Branch ISOSORBIDE 2020-0 Yes [id number] TAKE ONE [facility] MONONITRATE 8-03 TABLET BY ity of 30 mg 24 hr 00:00: MOUTH [place] tablet 00 DAILY Medical Branch ISOSORBIDE 2020-0 Yes [id number] TAKE ONE [facility] MONONITRATE 8-03 TABLET BY ity of 30 mg 24 hr 00:00: MOUTH [place] tablet 00 DAILY Medical Branch ISOSORBIDE 2020-0 Yes [id number] TAKE ONE [facility] MONONITRATE 8-03 TABLET BY ity of 30 mg 24 hr 00:00: MOUTH [place] tablet 00 DAILY Medical Branch ISOSORBIDE 2020-0 Yes [id number] TAKE ONE [facility] MONONITRATE 8-03 TABLET BY ity of 30 mg 24 hr 00:00: MOUTH [place] tablet 00 DAILY Medical Branch ISOSORBIDE 2020-0 Yes [id number] TAKE ONE [facility] MONONITRATE 8-03 TABLET BY ity of 30 mg 24 hr 00:00: MOUTH [place] tablet 00 DAILY Medical Branch ISOSORBIDE 1-0 Yes [id number] TAKE ONE [facility] MONONITRATE 8-03 TABLET BY ity of 30 mg 24 hr 00:00: MOUTH [place] tablet 00 DAILY Medical Branch ISOSORBIDE 1-0 Yes [id number] TAKE ONE [facility] MONONITRATE 8-03 TABLET BY ity of 30 mg 24 hr 00:00: MOUTH [place] tablet 00 DAILY Medical Branch PANTOPRAZOL 2020-0 Yes [id number] TAKE ONE [facility] E 40 mg EC 8-03 TABLET BY ity of tablet 00:00: MOUTH [place] 00 DAILY Medical Branch METOPROLOL 2020-0 Yes [id number] TAKE ONE [facility] SUCCINATE 8-03 TABLET BY ity o f XL 100 mg 00:00: MOUTH [place] 24 hr 00 DAILY Medical tablet Branch ISOSORBIDE 2020-0 Yes [id number] TAKE ONE [facility] MONONITRATE 8-03 TABLET BY ity of 30 mg 24 hr 00:00: MOUTH [place] tablet 00 DAILY Medical Branch ISOSORBIDE 2020-0 Yes [id number] TAKE ONE [facility] MONONITRATE 8-03 TABLET BY ity of 30 mg 24 hr 00:00: MOUTH [place] tablet 00 DAILY Medical Branch PANTOPRAZOL 2020-0 2020- No [id number] TAKE ONE [facility] E 40 mg EC 02-12 TABLET BY ity of tablet 00:00: 00:00 MOUTH [place] 00 :00 DAILY Medical Branch METOPROLOL 2020-0 2020- No [id number] TAKE ONE [facility] SUCCINATE -04-03 TABLET BY ity of XL 100 mg 00:00: 00:00 MOUTH [place] 24 hr 00 :00 DAILY Medical tablet Branch PANTOPRAZOL 2020-0 2020- No [id number] TAKE ONE [facility] E 40 mg EC 02-12 TABLET BY ity of tablet 00:00: 00:00 MOUTH [place] 00 :00 DAILY Medical Branch METOPROLOL 2020-0 2020- No [id number] TAKE ONE [facility] SUCCINATE -09 18- TABLET BY ity of XL 100 mg 00:00: 00:00 MOUTH [place] 24 hr 00 :00 DAILY Medical tablet Branch isosorbide 2020-0 Yes [id number] 30mg Take 1 U nivers mononitrate 7-08 tablet by ity of 30 mg 24 hr 00:00: mouth [place] tablet 00 daily. Medical Branch isosorbide 2020-0 Yes [id number] 30mg Take 1 U nivers mononitrate 7-08 tablet by ity of 30 mg 24 hr 00:00: mouth [place] tablet 00 daily. Medical Branch isosorbide 2020-0 Yes [id number] 30mg Take 1 U nivers mononitrate 7-08 tablet by ity of 30 mg 24 hr 00:00: mouth [place] tablet 00 daily. Medical Branch isosorbide 2020-0 1- No [id number] 30mg Take 1 [facility] mononitrate 7-08 08-03 tablet by it y of 30 mg 24 hr 00:00: 00:00 mouth [place] tablet 00 :00 daily. [facility] Branch ATORVASTATI 0 Yes [id number] TAKE ONE [facility] N 80 mg 7-06 TABLET BY ity of tablet 00:00: MOUTH AT [place] [facility] Medical Branch ATORVASTATI Yes [id number] TAKE ONE [facility] N 80 mg 7-06 TABLET BY ity of tablet 00:00: MOUTH AT [place] [facility] Medical Branch ATORVASTATI Yes [id number] TAKE ONE [facility] N 80 mg 7-06 TABLET BY ity of tablet 00:00: MOUTH AT [place] [facility] Medical Branch ATORVASTA Yes [id number] TAKE ONE [facility] N 80 mg 7-06 TABLET BY ity of tablet 00:00: MOUTH AT [place] [facility] Medical Branch ATORVASTA Yes [id number] TAKE ONE [facility] N 80 mg 7-06 TABLET BY ity of tablet 00:00: MOUTH AT [place] [facility] Medical Branch METOPROLOL Yes [id number] TAKE ONE [facility] SUCCINATE 7-06 TABLET BY ity o f XL 100 mg 00:00: MOUTH [place] 24 hr DAILY Medical tablet Branch ATORVASTATI Yes [id number] TAKE ONE [facility] N 80 mg 7-06 TABLET BY ity of tablet 00:00: MOUTH AT [place] [facility] Medical Branch METOPROLOL Yes [id number] TAKE ONE [facility] SUCCINATE 7-06 TABLET BY ity o f XL 100 mg 00:00: MOUTH [place] 24 hr DAILY Medical tablet Branch ATORVASTATI Yes [id number] TAKE ONE [facility] N 80 mg 7-06 TABLET BY ity of tablet 00:00: MOUTH AT [address] Medical Branch METOPROLOL Yes [id number] TAKE ONE [facility] SUCCINATE 7-06 TABLET BY ity o f XL 100 mg 00:00: MOUTH [place] 24 hr DAILY Medical tablet Branch ATORVASTATI Yes [id number] TAKE ONE [facility] N 80 mg 7-06 TABLET BY ity of tablet 00:00: MOUTH AT [address] Medical Branch METOPROLOL Yes [id number] TAKE ONE [facility] SUCCINATE 7-06 TABLET BY ity o f XL 100 mg 00:00: MOUTH [place] 24 hr 00 DAILY Medical tablet Branch ATORVASTATI 0 Yes [id number] TAKE ONE [facility] N 80 mg 01-15 TABLET BY ity of tablet 00:00: MOUTH AT [place] 00 BEDTIME Medical Branch ATORVASTATI 2020-0 2020- No [id number] TAKE ONE [facility] N 80 mg 01-15 TABLET BY ity of tablet 00:00: 00:00 MOUTH AT [place] 00 :00 BEDTIME Medical Branch METOPROLOL 2020-0 2020- No [id number] TAKE ONE [facility] SUCCINATE 01-15 TABLET BY ity of XL 100 mg 00:00: 00:00 MOUTH [place] 24 hr 00 :00 DAILY Medical tablet Branch BRILINTA 90 0 Yes [id number] TAKE ONE [facility] mg tablet 6-21 TABLET BY ity o f 00:00: MOUTH [place] 00 TWICE A Medical DAY Branch BRILINTA 90 2020-0 Yes [id number] TAKE ONE [facility] mg tablet 6-21 TABLET BY ity o f 00:00: MOUTH [place] 00 TWICE A Medical DAY Branch BRILINTA 90 2020-0 Yes [id number] TAKE ONE [facility] mg tablet 6-21 TABLET BY ity o f 00:00: MOUTH [place] 00 TWICE A Medical DAY Branch BRILINTA 90 2020-0 Yes [id number] TAKE ONE [facility] mg tablet 6-21 TABLET BY ity o f 00:00: MOUTH [place] 00 TWICE A Medical DAY Branch BRILINTA 90 2020-0 Yes [id number] TAKE ONE [facility] mg tablet 6-21 TABLET BY ity o f 00:00: MOUTH [place] 00 TWICE A Medical DAY Branch BRILINTA 90 2020-0 Yes [id number] TAKE ONE [facility] mg tablet 6-21 TABLET BY ity o f 00:00: MOUTH [place] 00 TWICE A Medical DAY Branch BRILINTA 90 2020-0 202- No [id number] TAKE ONE [facility] mg tablet 6-21 -31 TABLET BY ity of 00:00: 00:00 MOUTH [place] 00 :00 TWICE A Medical DAY Branch BRILINTA 90 2020-0 202- No [id number] TAKE ONE [facility] mg tablet 6-21 -31 TABLET BY ity of 00:00: 00:00 MOUTH [place] 00 :00 TWICE A Medical DAY Branch ONETOUCH 2020-0 Yes USE THREE Univ ers VERIO TEST 6-07 TIMES A ity of STRIPS 00:00: DAY TO [place] strip 00 TEST BLOOD [facility] USE THREE [facility] ers VERIO TEST 6-07 TIMES A ity of STRIPS 00:00: DAY TO [place] strip 00 TEST BLOOD Medical SUGARS Branch ONETOUCH 1-0 Yes USE THREE Univ ers VERIO TEST 6-07 TIMES A ity of STRIPS 00:00: DAY TO [place] strip 00 TEST BLOOD Medical SUGARS Branch ONETOUCH 1-0 Yes USE THREE Univ ers VERIO TEST 6-07 TIMES A ity of STRIPS 00:00: DAY TO [place] strip 00 TEST BLOOD Medical SUGARS Branch ONETOUCH 1-0 Yes USE THREE [facility] VERIO TEST 6-07 TIMES A [facility] STRIPS 00:00: DAY TO [place] strip 00 TEST BLOOD Medical SUGARS Branch ONETOUCH 2020-0 Yes USE THREE [facility] VERIO TEST 6-07 TIMES A ity of STRIPS 00:00: DAY TO [place] strip 00 TEST BLOOD Medical SUGARS Branch ONETOUCH 1-0 Yes USE THREE [facility] VERIO TEST 6-07 TIMES A ity of STRIPS 00:00: DAY TO [place] strip 00 TEST BLOOD Medical SUGARS Branch ONETOUCH 1-0 Yes USE THREE [facility] VERIO TEST 6-07 TIMES A ity of STRIPS 00:00: DAY TO [place] strip 00 TEST BLOOD Medical SUGARS Branch ONETOUCH 1-0 Yes USE THREE [facility] VERIO TEST 6-07 TIMES A ity of STRIPS 00:00: DAY TO [place] strip 00 TEST BLOOD Medical SUGARS Branch ONETOUCH 1-0 Yes USE THREE [facility] VERIO TEST 6-07 TIMES A ity of STRIPS 00:00: DAY TO [place] strip 00 TEST BLOOD Medical SUGARS Branch ONETOUCH 1-0 Yes USE THREE [facility] VERIO TEST 6-07 TIMES A ity of STRIPS 00:00: DAY TO [place] strip 00 TEST BLOOD Medical SUGARS Branch ONETOUCH 1-0 Yes USE THREE [facility] VERIO TEST 6-07 TIMES A ity of STRIPS 00:00: DAY TO [place] strip 00 TEST BLOOD Medical SUGARS Branch ONETOUCH 1-0 Yes USE THREE [facility] VERIO TEST 6-07 TIMES A ity of STRIPS 00:00: DAY TO [place] strip 00 TEST BLOOD Medical SUGARS Branch ONETOUCH 1-0 Yes USE THREE [facility] VERIO TEST 6-07 TIMES A ity of STRIPS 00:00: DAY TO [place] strip 00 TEST BLOOD Medical SUGARS Branch ONETOUCH 1-0 Yes USE THREE [facility] VERIO TEST 6-07 TIMES A ity of STRIPS 00:00: DAY TO [place] strip 00 TEST BLOOD Medical SUGARS Branch ONETOUCH 2020-0 Yes USE THREE [facility] VERIO TEST 6-07 TIMES A ity of STRIPS 00:00: DAY TO [place] strip 00 TEST BLOOD Medical SUGARS Branch ONETOUCH 2020-0 Yes USE THREE [facility] VERIO TEST 6-07 TIMES A ity of STRIPS 00:00: DAY TO [place] strip 00 TEST BLOOD Medical SUGARS Branch ONETOUCH 2020-0 Yes USE THREE [facility] VERIO TEST 6-07 TIMES A ity of STRIPS 00:00: DAY TO [place] strip 00 TEST BLOOD Medical SUGARS Branch ONETOUCH 2020-0 Yes USE THREE [facility] VERIO TEST 6-07 TIMES A ity of STRIPS 00:00: DAY TO [place] strip 00 TEST BLOOD Medical SUGARS Branch ONETOUCH 2020-0 Yes USE THREE [facility] VERIO TEST 6-07 TIMES A ity of STRIPS 00:00: DAY TO [place] strip 00 TEST BLOOD Medical SUGARS Branch ONETOUCH 2020-0 Yes USE THREE [facility] VERIO TEST 6-07 TIMES A ity of STRIPS 00:00: DAY TO [place] strip 00 TEST BLOOD Medical SUGARS Branch ONETOUCH 2020-0 Yes USE THREE [facility] VERIO TEST 6-07 TIMES A ity of STRIPS 00:00: DAY TO [place] strip 00 TEST BLOOD Medical SUGARS Branch ONETOUCH 2020-0 Yes USE THREE [facility] VERIO TEST 6-07 TIMES A ity of STRIPS 00:00: DAY TO [place] strip 00 TEST BLOOD Medical SUGARS Branch ONETOUCH 2020-0 Yes USE THREE [facility] VERIO TEST 6-07 TIMES A ity of STRIPS 00:00: DAY TO [place] strip 00 TEST BLOOD Medical SUGARS Branch ONETOUCH 2020-0 Yes USE THREE [facility] VERIO TEST 6-07 TIMES A ity of STRIPS 00:00: DAY TO [place] strip 00 TEST BLOOD Medical SUGARS Branch ONETOUCH 2020-0 Yes USE THREE [facility] VERIO TEST 6-07 TIMES A ity of STRIPS 00:00: DAY TO [place] strip 00 TEST BLOOD Medical SUGARS Branch ONETOUCH 2020-0 Yes USE THREE [facility] VERIO TEST 6-07 TIMES A ity of STRIPS 00:00: DAY TO [place] strip 00 TEST BLOOD Medical SUGARS Branch ONETOUCH 2020-0 Yes USE THREE [facility] VERIO TEST 6-07 TIMES A ity of STRIPS 00:00: DAY TO [place] strip 00 TEST BLOOD Medical SUGARS Branch ONETOUCH 1-0 Yes USE THREE [facility] VERIO TEST 6-07 TIMES A ity of STRIPS 00:00: DAY TO [place] strip 00 TEST BLOOD Medical SUGARS Branch ONETOUCH 1-0 Yes USE THREE [facility] VERIO TEST 6-07 TIMES A ity of STRIPS 00:00: DAY TO [place] strip 00 TEST BLOOD Medical SUGARS Branch ONETOUCH 1-0 Yes USE THREE [facility] VERIO TEST 6-07 TIMES A ity of STRIPS 00:00: DAY TO [place] strip 00 TEST BLOOD Medical SUGARS Branch ONETOUCH 1-0 Yes USE THREE [facility] VERIO TEST 6-07 TIMES A ity of STRIPS 00:00: DAY TO [place] strip 00 TEST BLOOD Medical SUGARS Branch ONETOUCH 1-0 Yes USE THREE [facility] VERIO TEST 6-07 TIMES A ity of STRIPS 00:00: DAY TO [place] strip 00 TEST BLOOD Medical SUGARS Branch ONETOUCH 1-0 Yes USE THREE [facility] VERIO TEST 6-07 TIMES A ity of STRIPS 00:00: DAY TO [place] strip 00 TEST BLOOD Medical SUGARS Branch ONETOUCH 1-0 Yes USE THREE [facility] VERIO TEST 6-07 TIMES A ity of STRIPS 00:00: DAY TO [place] strip 00 TEST BLOOD Medical SUGARS Branch ONETOUCH 1-0 Yes USE THREE [facility] VERIO TEST 6-07 TIMES A ity of STRIPS 00:00: DAY TO [place] strip 00 TEST BLOOD Medical SUGARS Branch ONETOUCH 1-0 Yes USE THREE [facility] VERIO TEST 6-07 TIMES A ity of STRIPS 00:00: DAY TO [place] strip 00 TEST BLOOD Medical SUGARS Branch ONETOUCH 1-0 Yes USE THREE [facility] VERIO TEST 6-07 TIMES A ity of STRIPS 00:00: DAY TO [place] strip 00 TEST BLOOD Medical SUGARS Branch ONETOUCH 1-0 Yes USE THREE [facility] VERIO TEST 6-07 TIMES A ity of STRIPS 00:00: DAY TO [place] strip 00 TEST BLOOD Medical SUGARS Branch ONETOUCH 1-0 Yes USE THREE [facility] VERIO TEST 6-07 TIMES A ity of STRIPS 00:00: DAY TO [place] strip 00 TEST BLOOD Medical SUGARS Branch ONETOUCH 1-0 Yes USE THREE [facility] VERIO TEST 6-07 TIMES A ity of STRIPS 00:00: DAY TO [place] strip 00 TEST BLOOD Medical SUGARS Branch ONETOUCH 2020-0 Yes USE THREE [facility] VERIO TEST 6-07 TIMES A ity of STRIPS 00:00: DAY TO [place] strip 00 TEST BLOOD Medical SUGARS Branch ONETOUCH 2020-0 Yes USE THREE [facility] VERIO TEST 6-07 TIMES A ity of STRIPS 00:00: DAY TO [place] strip 00 TEST BLOOD Medical SUGARS Branch ONETOUCH 2020-0 Yes USE THREE [facility] VERIO TEST 6-07 TIMES A ity of STRIPS 00:00: DAY TO [place] strip 00 TEST BLOOD Medical SUGARS Branch ONETOUCH 2020-0 Yes USE THREE [facility] VERIO TEST 6-07 TIMES A ity of STRIPS 00:00: DAY TO [place] strip 00 TEST BLOOD Medical SUGARS Branch ONETOUCH 2020-0 Yes USE THREE [facility] VERIO TEST 6-07 TIMES A ity of STRIPS 00:00: DAY TO [place] [facility] 00 TEST BLOOD Medical SUGARS Branch PANTOPRAZOL 2020-0 Yes [id number] TAKE ONE [facility] E 40 mg EC 5-17 TABLET BY ity of tablet 00:00: [facility] DAILY Medical Branch PANTOPRAZOL 0 Yes [id number] TAKE ONE Univers E 40 mg EC 5-17 TABLET BY ity of tablet 00:00: [facility] DAILY Medical Branch PANTOPRAZOL 2020-0 Yes [id number] TAKE ONE Univers E 40 mg EC 5-17 TABLET BY ity of tablet 00:00: [facility] DAILY Medical Branch PANTOPRAZOL 2020-0 Yes [id number] TAKE ONE Univers E 40 mg EC 5-17 TABLET BY ity of tablet 00:00: [facility] DAILY Medical Branch PANTOPRAZOL 2020-0 Yes [id number] TAKE ONE Univers E 40 mg EC 5-17 TABLET BY ity of tablet 00:00: [facility] DAILY Medical Branch PANTOPRAZOL 2020-0 Yes [id number] TAKE ONE Univers E 40 mg EC 5-17 TABLET BY ity of tablet 00:00: [facility] DAILY Medical Branch PANTOPRAZOL 2020-0 Yes [id number] TAKE ONE [facility] E 40 mg EC 5-17 TABLET BY ity of tablet 00:00: [facility] DAILY Medical Branch PANTOPRAZOL 2020-0 Yes [id number] TAKE ONE [facility] E 40 mg EC 5-17 TABLET BY ity of tablet 00:00: MOUTH [place] 00 DAILY Medical Branch PANTOPRAZOL 0 Yes [id number] TAKE ONE [facility] E 40 mg EC 5-17 TABLET BY ity of tablet 00:00: MOUTH [place] 00 DAILY Medical Branch PANTOPRAZOL 0 2020- No [id number] TAKE ONE [facility] E 40 mg EC 5-17 08-03 TABLET BY ity of tablet 00:00: 00:00 MOUTH [place] 00 :00 DAILY Medical Branch Aspirin 0 Yes 81 mg = 1 [facility] 5-10 tab, PO, l Coated 81 14:19: Daily, 0 Herm gonzalez mg oral 00 Refill(s) delayed release tablet Aspirin Yes 81 mg = 1 [facility] 5-10 tab, PO, l Coated 81 14:19: Daily, 0 [facility] gonzalez mg oral 00 Refill(s) delayed release tablet Aspirin Yes 81 mg = 1 [facility] 5-10 tab, PO, l Coated 81 14:19: Daily, 0 [facility] gonzalez mg oral 00 Refill(s) delayed release tablet atorvastati Yes 0 [facility] a n 80 mg 5-10 Refill(s) l oral tablet 14:18: Ja n 00 olmesartan Yes 0 [facility] 40 mg oral 5-10 Refill(s) l tablet 14:18: [facility] Hydrochloro Yes 0 [facility] a thiazide 25 5-10 Refill(s) l MG Oral 14:18: [place] Tablet 00 Ticagrelor Yes 0 [facility] 90 MG Oral 5-10 Refill(s) l Tablet 14:18: [place] [Brilinta] 00 amLODIPine Yes 0 [facility] 5 mg oral 5-10 Refill(s) l tablet 14:18: [place] 00 1 MG Dose 0 Yes 0 [facility] 1.5 ML 5-10 Refill(s) l semaglutide 14:18: Ja n 1.34 MG/ML 00 Pen Injector [Ozempic] Hydrochloro Yes 0 [facility] a thiazide 25 5-10 Refill(s) l MG Oral 14:18: [place] Tablet 00 Ticagrelor Yes 0 [facility] 90 MG Oral 5-10 Refill(s) l Tablet 14:18: [place] [Brilinta] 00 Ozempic (1 0 Yes 0 [facility] mg dose) 2 5-10 Refill(s) l mg/1.5 mL 14:18: subcutaneou 00 s solution pantoprazol 0 Yes 0 [facility] a e 40 mg 5-10 Refill(s) l oral 14:18: [place] [facility] 00 coated tablet Metoprolol 0 Yes 0 [facility] Succinate 5-10 Refill(s) l ER 100 mg 14:18: oral 00 tablet, extended release isosorbide 0 Yes 0 [facility] mononitrate 5-10 Refill(s) l 30 mg oral 14:18: [place] tablet, 00 extended release atorvastati 0 Yes 0 Mem[facility] a n 80 mg 5-10 Refill(s) l oral tablet 14:18: Ja n 00 olmesartan 0 Yes 0 [facility] 40 mg oral 5-10 Refill(s) l tablet 14:18: [place] 00 hydrochloro 0 Yes 0 [facility] a thiazide 25 5-10 Refill(s) l mg oral 14:18: [place] tablet 00 Brilinta 0 Yes 0 [facility] (ticagrelor 5-10 Refill(s) l ) 90 mg 14:18: [place] oral tablet 00 amLODIPine 0 Yes 0 [facility] 5 mg oral 5-10 Refill(s) l tablet 14:18: [place] 00 1 MG Dose 0 Yes 0 [facility] 1.5 ML 5-10 Refill(s) l semaglutide 14:18: Ja n 1.34 MG/ML 00 Pen Injector [Ozempic] pantoprazol 0 Yes 0 Memori a e 40 mg 5-10 Refill(s) l oral 14:18: [place] [facility] 00 coated tablet Metoprolol 0 Yes 0 [facility] Succinate 5-10 Refill(s) l ER 100 mg 14:18: [place] oral 00 tablet, extended release isosorbide 2020-0 Yes 0 [facility] mononitrate 5-10 Refill(s) l 30 mg oral 14:18: [place] tablet, 00 extended release BRILINTA 90 2021-0 Yes [id number] TAKE ONE [facility] mg tablet 5-10 TABLET BY ity o f 00:00: MOUTH [place] 00 TWICE A Medical DAY Branch PANTOPRAZOL 2020-0 Yes [id number] TAKE ONE [facility] E 40 mg EC 5-10 TABLET BY ity of tablet 00:00: MOUTH [place] 00 DAILY Medical Branch ATORVASTATI 2020-0 Yes [id number] TAKE ONE [facility] N 80 mg 5-10 TABLET BY ity of tablet 00:00: MOUTH AT [place] BEDTIME Medical Branch ISOSORBIDE 2020-0 Yes [id number] TAKE ONE Univers MONONITRATE 5-10 TABLET BY ity of 30 mg 24 hr 00:00: MOUTH [place] tablet 00 DAILY Medical Branch METOPROLOL 2020-0 Yes [id number] TAKE ONE Univers SUCCINATE 5-10 TABLET BY ity o f XL 100 mg 00:00: MOUTH [place] 24 hr 00 DAILY Medical tablet Branch BRILINTA 90 2020-0 Yes [id number] TAKE ONE Univers mg tablet 5-10 TABLET BY ity o f 00:00: MOUTH [place] TWICE A Medical DAY Branch ATORVASTATI 2020-0 Yes [id number] TAKE ONE [facility] N 80 mg 5-10 TABLET BY ity of tablet 00:00: MOUTH AT [place] BEDTIME Medical Branch ISOSORBIDE 2020-0 Yes [id number] TAKE ONE [facility] MONONITRATE 5-10 TABLET BY ity of 30 mg 24 hr 00:00: MOUTH [place] tablet 00 DAILY Medical Branch METOPROLOL 2020-0 Yes [id number] TAKE ONE Univers SUCCINATE 5-10 TABLET BY ity o f XL 100 mg 00:00: MOUTH [place] 24 hr 00 DAILY Medical tablet Branch BRILINTA 90 2020-0 Yes [id number] TAKE ONE Univers mg tablet 5-10 TABLET BY ity o f 00:00: MOUTH [place] 00 TWICE A Medical DAY Branch ATORVASTATI 2020-0 Yes [id number] TAKE ONE Univers N 80 mg 5-10 TABLET BY ity of tablet 00:00: MOUTH AT [place] 00 BEDTIME Medical Branch ISOSORBIDE 2020-0 Yes [id number] TAKE ONE [facility] MONONITRATE 5-10 TABLET BY ity of 30 mg 24 hr 00:00: MOUTH [place] tablet 00 DAILY Medical Branch METOPROLOL 2020-0 Yes [id number] TAKE ONE Univers SUCCINATE 5-10 TABLET BY ity o f XL 100 mg 00:00: MOUTH [place] 24 hr 00 DAILY Medical tablet Branch BRILINTA 90 2020-0 Yes [id number] TAKE ONE Univers mg tablet 5-10 TABLET BY ity o f 00:00: MOUTH [place] 00 TWICE A Medical DAY Branch ATORVASTATI 2020-0 Yes [id number] TAKE ONE [facility] N 80 mg 5-10 TABLET BY ity of tablet 00:00: MOUTH AT [place] 00 BEDTIME Medical Branch ISOSORBIDE 2020-0 Yes [id number] TAKE ONE [facility] MONONITRATE 5-10 TABLET BY ity of 30 mg 24 hr 00:00: MOUTH [place] tablet 00 DAILY Medical Branch METOPROLOL 2020-0 Yes [id number] TAKE ONE Univers SUCCINATE 5-10 TABLET BY ity o f XL 100 mg 00:00: MOUTH [place] 24 hr 00 DAILY Medical tablet Branch ATORVASTATI 2020-0 Yes [id number] TAKE ONE [facility] N 80 mg 5-10 TABLET BY ity of tablet 00:00: MOUTH AT [place] 00 BEDTIME Medical Branch ISOSORBIDE 2020-0 Yes [id number] TAKE ONE [facility] MONONITRATE 5-10 TABLET BY ity of 30 mg 24 hr 00:00: MOUTH [place] tablet 00 DAILY Medical Branch METOPROLOL 2020-0 Yes [id number] TAKE ONE Univers SUCCINATE 5-10 TABLET BY ity o f XL 100 mg 00:00: MOUTH [place] 24 hr 00 DAILY Medical tablet Branch ATORVASTATI 2020-0 Yes [id number] TAKE ONE [facility] N 80 mg 5-10 TABLET BY ity of tablet 00:00: MOUTH AT [place] 00 BEDTIME Medical Branch ISOSORBIDE 2020-0 Yes [id number] TAKE ONE [facility] MONONITRATE 5-10 TABLET BY ity of 30 mg 24 hr 00:00: MOUTH [place] tablet 00 DAILY Medical Branch METOPROLOL 2020-0 Yes [id number] TAKE ONE Univers SUCCINATE 5-10 TABLET BY ity o f XL 100 mg 00:00: MOUTH [place] 24 hr 00 DAILY Medical tablet Branch ISOSORBIDE 2020-0 Yes [id number] TAKE ONE [facility] MONONITRATE 5-10 TABLET BY ity of 30 mg 24 hr 00:00: MOUTH [place] tablet 00 DAILY Medical Branch ISOSORBIDE 2020-0 1- No [id number] TAKE ONE [facility] MONONITRATE 5-10 07-08 TABLET BY it y of 30 mg 24 hr 00:00: 00:00 MOUTH [place] tablet 00 :00 DAILY Medical Branch ATORVASTATI 2020-0 2020- No [id number] TAKE ONE [facility] N 80 mg 5-10 -06 TABLET BY ity of tablet 00:00: 00:00 MOUTH AT [place] 00 :00 BEDTIME Medical Branch METOPROLOL 2020-0 2020- No [id number] TAKE ONE Univers SUCCINATE 5-10 07-06 TABLET BY ity of XL 100 mg 00:00: 00:00 MOUTH [place] 24 hr 00 :00 DAILY Medical tablet Branch BRILINTA 90 2020-0 2020- No [id number] TAKE ONE Univers mg tablet 5-10 -21 TABLET BY ity of 00:00: 00:00 MOUTH [place] 00 :00 TWICE A Medical DAY Branch PANTOPRAZOL 2020-0 2020- No [id number] TAKE ONE [facility] E 40 mg EC 5-10 05-17 TABLET BY ity of tablet 00:00: 00:00 MOUTH [place] 00 :00 DAILY Medical Branch METOPROLOL 0 Yes [id number] TAKE ONE Univers SUCCINATE 4-12 TABLET BY ity o f XL 100 mg 00:00: MOUTH [place] 24 hr 00 DAILY Medical tablet Branch PANTOPRAZOL 2020-0 Yes [id number] TAKE ONE [facility] E 40 mg EC 4-12 TABLET BY ity of tablet 00:00: MOUTH [place] 00 DAILY Medical Branch ISOSORBIDE 2020-0 Yes [id number] TAKE ONE [facility] MONONITRATE 4-12 TABLET BY ity of 30 mg 24 hr 00:00: MOUTH [place] tablet 00 DAILY Medical Branch ATORVASTATI 2020-0 Yes [id number] TAKE ONE [facility] N 80 mg 4-12 TABLET BY ity of tablet 00:00: MOUTH AT [place] 00 BEDTIME Medical Branch METOPROLOL 2020-0 Yes [id number] TAKE ONE Univers SUCCINATE 4-12 TABLET BY ity o f XL 100 mg 00:00: MOUTH [place] 24 hr 00 DAILY Medical tablet Branch PANTOPRAZOL 2020-0 Yes [id number] TAKE ONE [facility] E 40 mg EC 4-12 TABLET BY ity of tablet 00:00: MOUTH [place] 00 DAILY Medical Branch ISOSORBIDE 2020-0 Yes [id number] TAKE ONE [facility] MONONITRATE 4-12 TABLET BY ity of 30 mg 24 hr 00:00: MOUTH [place] tablet 00 DAILY Medical Branch ATORVASTATI 2020-0 Yes [id number] TAKE ONE [facility] N 80 mg 4-12 TABLET BY ity of tablet 00:00: MOUTH AT [place] 00 BEDTIME Medical Branch METOPROLOL 2020-0 2020- No [id number] TAKE ONE Univers SUCCINATE 4-12 05-10 TABLET BY ity of XL 100 mg 00:00: 00:00 MOUTH [place] 24 hr 00 :00 DAILY Medical tablet Branch PANTOPRAZOL 2020-0 2020- No [id number] TAKE ONE [facility] E 40 mg EC 4-12 05-10 TABLET BY ity of tablet 00:00: 00:00 MOUTH [place] 00 :00 DAILY Medical Branch ISOSORBIDE 2020-0 2020- No [id number] TAKE ONE [facility] MONONITRATE 4-12 05-10 TABLET BY it y of 30 mg 24 hr 00:00: 00:00 MOUTH [place] tablet 00 :00 DAILY Medical Branch ATORVASTATI 0 2020- No [id number] TAKE ONE [facility] N 80 mg 4-12 05-10 TABLET BY ity of tablet 00:00: 00:00 MOUTH AT [place] 00 :00 BEDTIME Medical Branch BRILINTA 90 2020-0 Yes [id number] TAKE ONE [facility] mg tablet 3-17 TABLET BY ity o f 00:00: MOUTH [place] 00 TWICE A Medical DAY Branch BRILINTA 90 2020-0 Yes [id number] TAKE ONE [facility] mg tablet 3-17 TABLET BY ity o f 00:00: MOUTH [place] 00 TWICE A Medical DAY Branch BRILINTA 90 2020-0 Yes [id number] TAKE ONE [facility] mg tablet 3-17 TABLET BY ity o f 00:00: MOUTH [place] 00 TWICE A Medical DAY Branch BRILINTA 90 2020-0 2020- No [id number] TAKE ONE [facility] mg tablet 3-17 05-10 TABLET BY ity of 00:00: 00:00 MOUTH [place] 00 :00 TWICE A Medical DAY Branch semaglutide 0 Yes .5mg inject 0.5 Univers (OZEMPIC) 3-12 mg under ity of 0.25 mg or 20:08: the skin Neil as 0.5 mg(2 17 weekly. Medical mg/1.5 mL) Branch PnIj semaglutide 0 Yes .5mg inject 0.5 Univers (OZEMPIC) 3-12 mg under ity of 0.25 mg or 20:08: the skin [place] as 0.5 mg(2 17 weekly. Medical mg/1.5 mL) Branch PnIj semaglutide 2020-0 Yes .5mg inject 0.5 Univers (OZEMPIC) 3-12 mg under ity of 0.25 mg or 20:08: the skin [place] as 0.5 mg(2 17 weekly. Medical mg/1.5 mL) Branch PnIj semaglutide 0 Yes .5mg inject 0.5 Univers (OZEMPIC) 3-12 mg under ity of 0.25 mg or 20:08: the skin [place] as 0.5 mg(2 17 weekly. Medical mg/1.5 mL) Branch PnIj semaglutide 0 Yes .5mg inject 0.5 Univers (OZEMPIC) 3-12 mg under ity of 0.25 mg or 20:08: the skin [place] as 0.5 mg(2 17 weekly. Medical mg/1.5 mL) Branch PnIj semaglutide 0 Yes .5mg inject 0.5 Univers (OZEMPIC) 3-12 mg under ity of 0.25 mg or 20:08: the skin [place] as 0.5 mg(2 17 weekly. Medical mg/1.5 mL) Branch PnIj semaglutide 0 Yes .5mg inject 0.5 Univers (OZEMPIC) 3-12 mg under ity of 0.25 mg or 20:08: the skin [place] as 0.5 mg(2 17 weekly. Medical mg/1.5 mL) Branch PnIj semaglutide 0 Yes .5mg inject 0.5 Univers (OZEMPIC) 3-12 mg under ity of 0.25 mg or 20:08: the skin [place] as 0.5 mg(2 17 weekly. Medical mg/1.5 mL) Branch PnIj semaglutide 0 Yes .5mg inject 0.5 Univers (OZEMPIC) 3-12 mg under ity of 0.25 mg or 20:08: the skin [place] as 0.5 mg(2 17 weekly. Medical mg/1.5 mL) Branch PnIj semaglutide 2020-0 Yes .5mg inject 0.5 [facility] (OZEMPIC) 3-12 mg under ity of 0.25 mg or 20:08: the skin [place] as 0.5 mg(2 17 weekly. Medical mg/1.5 mL) Branch PnIj semaglutide Yes .5mg inject 0.5 Univers (OZEMPIC) 3-12 mg under ity of 0.25 mg or 20:08: the skin [place] as 0.5 mg(2 17 weekly. Medical mg/1.5 mL) Branch PnIj semaglutide Yes .5mg inject 0.5 Univers (OZEMPIC) 3-12 mg under ity of 0.25 mg or 20:08: the skin [place] as 0.5 mg(2 17 weekly. Medical mg/1.5 mL) Branch PnIj semaglutide Yes .5mg inject 0.5 Univers (OZEMPIC) 3-12 mg under ity of 0.25 mg or 20:08: the skin [place] as 0.5 mg(2 17 weekly. Medical mg/1.5 mL) Branch PnIj semaglutide Yes .5mg inject 0.5 Univers (OZEMPIC) 3-12 mg under ity of 0.25 mg or 20:08: the skin [place] as 0.5 mg(2 17 weekly. Medical mg/1.5 mL) Branch PnIj semaglutide Yes .5mg inject 0.5 Univers (OZEMPIC) 3-12 mg under ity of 0.25 mg or 20:08: the skin [place] as 0.5 mg(2 17 weekly. Medical mg/1.5 mL) Branch PnIj semaglutide Yes .5mg inject 0.5 Univers (OZEMPIC) 3-12 mg under ity of 0.25 mg or 20:08: the skin [place] as 0.5 mg(2 17 weekly. Medical mg/1.5 mL) Branch PnIj semaglutide Yes .5mg inject 0.5 [facility] (OZEMPIC) 3-12 mg under ity of 0.25 mg or 20:08: the skin [place] as 0.5 mg(2 17 weekly. Medical mg/1.5 mL) Branch PnIj semaglutide Yes .5mg inject 0.5 [facility] (OZEMPIC) 3-12 mg under ity of 0.25 mg or 20:08: the skin [place] as 0.5 mg(2 17 weekly. Medical mg/1.5 mL) Branch PnIj glimepiride 2020- No 2mg Take 2 mg Univers 2 mg tablet 09-21 by mouth ity of 20:04: 00:00 daily with [place] 02 :00 breakfast. Medical Branch glimepiride 2020- No 2mg Take 2 mg [facility] 2 mg tablet 09-21 by mouth ity of 20:04: 00:00 daily with [place] 02 :00 breakfast. Medical Branch semaglutide Yes .5mg inject 0.5 Univers (OZEMPIC) 3-12 mg under ity of 0.25 mg or 14:08: the skin [place] as 0.5 mg(2 17 weekly. Medical mg/1.5 mL) Branch PnIj semaglutide Yes .5mg inject 0.5 [facility] (OZEMPIC) 3-12 mg under ity of 0.25 mg or 14:08: the skin [place] as 0.5 mg(2 17 weekly. Medical mg/1.5 mL) Branch PnIj semaglutide Yes .5mg inject 0.5 [facility] (OZEMPIC) 3-12 mg under ity of 0.25 mg or 14:08: the skin [place] as 0.5 mg(2 17 weekly. Medical mg/1.5 mL) Branch PnIj semaglutide Yes .5mg inject 0.5 Univers (OZEMPIC) 3-12 mg under ity of 0.25 mg or 14:08: the skin [place] as 0.5 mg(2 17 weekly. Medical mg/1.5 mL) Branch PnIj semaglutide Yes .5mg inject 0.5 [facility] (OZEMPIC) 3-12 mg under ity of 0.25 mg or 14:08: the skin [place] as 0.5 mg(2 17 weekly. Medical mg/1.5 mL) Branch PnIj semaglutide Yes .5mg inject 0.5 [facility] (OZEMPIC) 3-12 mg under ity of 0.25 mg or 14:08: the skin [place] as 0.5 mg(2 17 weekly. Medical mg/1.5 mL) Branch PnIj semaglutide 0 Yes .5mg inject 0.5 [facility] (OZEMPIC) 3-12 mg under ity of 0.25 mg or 14:08: the skin [place] as 0.5 mg(2 17 weekly. Medical mg/1.5 mL) Branch PnIj semaglutide 2020-0 Yes .5mg inject 0.5 [facility] (OZEMPIC) 3-12 mg under ity of 0.25 mg or 14:08: the skin [place] as 0.5 mg(2 17 weekly. Medical mg/1.5 mL) Branch PnIj semaglutide 2020-0 Yes .5mg inject 0.5 [facility] (OZEMPIC) 3-12 mg under ity of 0.25 mg or 14:08: the skin [place] as 0.5 mg(2 17 weekly. Medical mg/1.5 mL) Branch PnIj semaglutide 2020-0 Yes .5mg inject 0.5 [facility] (OZEMPIC) 3-12 mg under ity of 0.25 mg or 14:08: the skin [place] as 0.5 mg(2 17 weekly. Medical mg/1.5 mL) Branch PnIj semaglutide 2020-0 Yes .5mg inject 0.5 [facility] (OZEMPIC) 3-12 mg under ity of 0.25 mg or 14:08: the skin [place] as 0.5 mg(2 17 weekly. Medical mg/1.5 mL) Branch PnIj semaglutide 2020-0 Yes .5mg inject 0.5 [facility] (OZEMPIC) 3-12 mg under ity of 0.25 mg or 14:08: the skin [place] as 0.5 mg(2 17 weekly. Medical mg/1.5 mL) Branch PnIj semaglutide 2020-0 Yes .5mg inject 0.5 [facility] (OZEMPIC) 3-12 mg under ity of 0.25 mg or 14:08: the skin [place] as 0.5 mg(2 17 weekly. Medical mg/1.5 mL) Branch PnIj semaglutide 2020-0 Yes .5mg inject 0.5 [facility] (OZEMPIC) 3-12 mg under ity of 0.25 mg or 14:08: the skin [place] as 0.5 mg(2 17 weekly. Medical mg/1.5 mL) Branch PnIj semaglutide 2020-0 Yes .5mg inject 0.5 [facility] (OZEMPIC) 3-12 mg under ity of 0.25 mg or 14:08: the skin [place] as 0.5 mg(2 17 weekly. Medical mg/1.5 mL) Branch PnIj semaglutide 2020-0 Yes .5mg inject 0.5 [facility] (OZEMPIC) 3-12 mg under ity of 0.25 mg or 14:08: the skin [place] as 0.5 mg(2 17 weekly. Medical mg/1.5 mL) Branch PnIj semaglutide 2020-0 Yes .5mg inject 0.5 [facility] (OZEMPIC) 3-12 mg under ity of 0.25 mg or 14:08: the skin [place] as 0.5 mg(2 17 weekly. Medical mg/1.5 mL) Branch PnIj semaglutide 2020-0 Yes .5mg inject 0.5 [facility] (OZEMPIC) 3-12 mg under ity of 0.25 mg or 14:08: the skin [place] as 0.5 mg(2 17 weekly. Medical mg/1.5 mL) Branch PnIj semaglutide 2020-0 Yes .5mg inject 0.5 [facility] (OZEMPIC) 3-12 mg under ity of 0.25 mg or 14:08: the skin [place] as 0.5 mg(2 17 weekly. Medical mg/1.5 mL) Branch PnIj semaglutide 2020-0 Yes .5mg inject 0.5 [facility] (OZEMPIC) 3-12 mg under ity of 0.25 mg or 14:08: the skin [place] as 0.5 mg(2 17 weekly. Medical mg/1.5 mL) Branch PnIj semaglutide 2020-0 Yes .5mg inject 0.5 [facility] (OZEMPIC) 3-12 mg under ity of 0.25 mg or 14:08: the skin [place] as 0.5 mg(2 17 weekly. Medical mg/1.5 mL) Branch PnIj semaglutide 2020-0 Yes .5mg inject 0.5 [facility] (OZEMPIC) 3-12 mg under ity of 0.25 mg or 14:08: the skin [place] as 0.5 mg(2 17 weekly. Medical mg/1.5 mL) Branch PnIj semaglutide 2020-0 Yes .5mg inject 0.5 [facility] (OZEMPIC) 3-12 mg under ity of 0.25 mg or 14:08: the skin Neil as 0.5 mg(2 17 weekly. Medical mg/1.5 mL) Branch PnIj semaglutide 2020-0 Yes .5mg inject 0.5 [facility] (OZEMPIC) 3-12 mg under ity of 0.25 mg or 14:08: the skin Neil as 0.5 mg(2 17 weekly. Medical mg/1.5 mL) Branch PnIj semaglutide 2020-0 Yes .5mg inject 0.5 [facility] (OZEMPIC) 3-12 mg under ity of 0.25 mg or 14:08: the skin Neil as 0.5 mg(2 17 weekly. Medical mg/1.5 mL) [facility] PnIj semaglutide 2020-0 Yes .5mg inject 0.5 [facility] (OZEMPIC) 3-12 mg under ity of 0.25 mg or 14:08: the skin Neil as 0.5 mg(2 17 weekly. Medical mg/1.5 mL) Branch PnIj semaglutide 2020-0 Yes .5mg inject 0.5 [facility] (OZEMPIC) 3-12 mg under ity of 0.25 mg or 14:08: the skin Neil as 0.5 mg(2 17 weekly. Medical mg/1.5 mL) Branch PnIj semaglutide 2020-0 Yes .5mg inject 0.5 [facility] (OZEMPIC) 3-12 mg under ity of 0.25 mg or 14:08: the skin Neil as 0.5 mg(2 17 weekly. Medical mg/1.5 mL) Branch PnIj semaglutide 2020-0 Yes .5mg inject 0.5 [facility] (OZEMPIC) 3-12 mg under ity of 0.25 mg or 14:08: the skin Neil as 0.5 mg(2 17 weekly. Medical mg/1.5 mL) Branch PnIj semaglutide 2020-0 Yes .5mg inject 0.5 [facility] (OZEMPIC) 3-12 mg under ity of 0.25 mg or 14:08: the skin [place] as 0.5 mg(2 17 weekly. Medical mg/1.5 mL) Branch PnIj semaglutide 2020-0 Yes .5mg inject 0.5 [facility] (OZEMPIC) 3-12 mg under ity of 0.25 mg or 14:08: the skin [place] as 0.5 mg(2 17 weekly. Medical mg/1.5 mL) Branch PnIj semaglutide Yes .5mg inject 0.5 [facility] (OZEMPIC) 3-12 mg under ity of 0.25 mg or 14:08: the skin [place] 0.5 mg(2 17 weekly. Medical mg/1.5 mL) Branch PnIj semaglutide Yes .5mg inject 0.5 [facility] (OZEMPIC) 3-12 mg under ity of 0.25 mg or 14:08: the skin [place] 0.5 mg(2 17 weekly. Medical mg/1.5 mL) Branch PnIj semaglutide Yes .5mg inject 0.5 [facility] (OZEMPIC) 3-12 mg under ity of 0.25 mg or 14:08: the skin [place] 0.5 mg(2 17 weekly. Medical mg/1.5 mL) Branch PnIj semaglutide Yes .5mg inject 0.5 [facility] (OZEMPIC) 3-12 mg under ity of 0.25 mg or 14:08: the skin [place] as 0.5 mg(2 17 weekly. Medical mg/1.5 mL) Branch PnIj ISOSORBIDE Yes [id number] TAKE ONE [facility] MONONITRATE 3-05 TABLET BY ity of 30 mg 24 hr 00:00: MOUTH [place] tablet 00 DAILY Medical Branch PANTOPRAZOL 0 Yes [id number] TAKE ONE [facility] E 40 mg EC 3-05 TABLET BY ity of tablet 00:00: MOUTH [place] 00 DAILY Medical Branch ATORVASTATI 2020-0 Yes [id number] TAKE ONE [facility] N 80 mg 3-05 TABLET BY ity of tablet 00:00: MOUTH AT [place] 00 BEDTIME Medical Branch METOPROLOL 2020-0 Yes [id number] TAKE ONE [facility] SUCCINATE 3-05 TABLET BY ity o f XL 100 mg 00:00: MOUTH [place] 24 hr 00 DAILY Medical tablet Branch ISOSORBIDE 2020-0 Yes [id number] TAKE ONE [facility] MONONITRATE 3-05 TABLET BY ity of 30 mg 24 hr 00:00: MOUTH [place] tablet 00 DAILY Medical Branch PANTOPRAZOL 2020-0 Yes [id number] TAKE ONE [facility] E 40 mg EC 3-05 TABLET BY ity of tablet 00:00: MOUTH [place] 00 DAILY Medical Branch ATORVASTATI 2020-0 Yes [id number] TAKE ONE [facility] N 80 mg 3-05 TABLET BY ity of tablet 00:00: MOUTH AT [place] BEDTIME Medical Branch METOPROLOL 2020-0 Yes [id number] TAKE ONE [facility] SUCCINATE 3-05 TABLET BY ity o f XL 100 mg 00:00: MOUTH [place] 24 hr 00 DAILY Medical tablet Branch ISOSORBIDE 2020-0 Yes [id number] TAKE ONE [facility] MONONITRATE 3-05 TABLET BY ity of 30 mg 24 hr 00:00: MOUTH [place] tablet 00 DAILY Medical Branch PANTOPRAZOL 2020-0 Yes [id number] TAKE ONE [facility] E 40 mg EC 3-05 TABLET BY ity of tablet 00:00: MOUTH [place] DAILY Medical Branch ATORVASTATI 0 Yes [id number] TAKE ONE [facility] N 80 mg 3-05 TABLET BY ity of tablet 00:00: MOUTH [facility] BEDTIME Medical Branch METOPROLOL 0 Yes [id number] TAKE ONE [facility] SUCCINATE 3-05 TABLET BY ity o f XL 100 mg 00:00: MOUTH [place] 24 hr DAILY Medical tablet Branch ISOSORBIDE 2020-0 Yes [id number] TAKE ONE [facility] MONONITRATE 3-05 TABLET BY ity of 30 mg 24 hr 00:00: MOUTH [place] tablet 00 DAILY Medical Branch PANTOPRAZOL 2020-0 Yes [id number] TAKE ONE [facility] E 40 mg EC 3-05 TABLET BY ity of tablet 00:00: MOUTH [place] DAILY Medical Branch ATORVASTATI 2020-0 Yes [id number] TAKE ONE [facility] N 80 mg 3-05 TABLET BY ity of tablet 00:00: MOUTH AT [place] BEDTIME Medical Branch METOPROLOL 2020-0 Yes [id number] TAKE ONE [facility] SUCCINATE 3-05 TABLET BY ity o f XL 100 mg 00:00: MOUTH [place] 24 hr 00 DAILY Medical tablet Branch ISOSORBIDE 2020-0 2021- No [id number] TAKE ONE [facility] MONONITRATE 3-05 04-12 TABLET BY it y of 30 mg 24 hr 00:00: 00:00 MOUTH [place] tablet 00 :00 DAILY Medical Branch PANTOPRAZOL 2020-0 2021- No [id number] TAKE ONE [facility] E 40 mg EC 3-05 04-12 TABLET BY ity of tablet 00:00: 00:00 MOUTH [place] 00 :00 DAILY Medical Branch ATORVASTATI 0 2020- No [id number] TAKE ONE [facility] N 80 mg 3-05 04-12 TABLET BY ity of tablet 00:00: 00:00 MOUTH AT [place] 00 :00 BEDTIME Medical Branch METOPROLOL 0 2020- No [id number] TAKE ONE [facility] SUCCINATE 3-05 04-12 TABLET BY ity of XL 100 mg 00:00: 00:00 MOUTH [place] 24 hr 00 :00 DAILY Medical tablet Branch BRILINTA 90 2019- Yes [id number] TAKE ONE [facility] mg tablet 2-31 TABLET BY ity o f 00:00: MOUTH [place] 00 TWICE A Medical DAY Branch ISOSORBIDE 2020- Yes [id number] TAKE ONE [facility] MONONITRATE 2-31 TABLET BY ity of 30 mg 24 hr 00:00: MOUTH [place] tablet 00 DAILY Medical Branch METOPROLOL 2020 Yes [id number] TAKE ONE [facility] SUCCINATE 2-31 TABLET BY ity o f XL 100 mg 00:00: MOUTH [place] 24 hr 00 DAILY Medical tablet Branch ATORVASTATI 2019- Yes [id number] TAKE ONE [facility] N 80 mg 2-31 TABLET BY ity of tablet 00:00: MOUTH AT [place] 00 BEDTIME Medical Branch PANTOPRAZOL 2020- Yes [id number] TAKE ONE [facility] E 40 mg EC 2-31 TABLET BY ity of tablet 00:00: MOUTH [place] 00 DAILY Medical Branch BRILINTA 90 2019- Yes [id number] TAKE ONE [facility] mg tablet 2-31 TABLET BY ity o f 00:00: MOUTH [place] 00 TWICE A Medical DAY Branch ISOSORBIDE 2020- Yes [id number] TAKE ONE [facility] MONONITRATE 2-31 TABLET BY ity of 30 mg 24 hr 00:00: MOUTH [place] tablet 00 DAILY Medical Branch METOPROLOL 2020- Yes [id number] TAKE ONE [facility] SUCCINATE 2-31 TABLET BY ity o f XL 100 mg 00:00: MOUTH [place] 24 hr 00 DAILY Medical tablet Branch ATORVASTATI 2020- Yes [id number] TAKE ONE [facility] N 80 mg 2-31 TABLET BY ity of tablet 00:00: MOUTH AT [place] 00 BEDTIME Medical Branch PANTOPRAZOL 2020- Yes [id number] TAKE ONE [facility] E 40 mg EC 2-31 TABLET BY ity of tablet 00:00: MOUTH [place] 00 DAILY Medical Branch BRILINTA 90 2019- Yes [id number] TAKE ONE [facility] mg tablet 2-31 TABLET BY ity o f 00:00: MOUTH [place] 00 TWICE A Medical DAY Branch BRILINTA 90 2019-07 Yes [id number] TAKE ONE [facility] mg tablet 2-31 TABLET BY ity o f 00:00: MOUTH [place] 00 TWICE A Medical DAY Branch BRILINTA 90 2019-07 Yes [id number] TAKE ONE [facility] mg tablet 2-31 TABLET BY ity o f 00:00: MOUTH [place] 00 TWICE A Medical DAY Branch BRILINTA 90 2019-07- No [id number] TAKE ONE [facility] mg tablet -10 10-17 TABLET BY ity of 00:00: 00:00 MOUTH [place] 00 :00 TWICE A Medical DAY Branch ISOSORBIDE 2019-2020- No [id number] TAKE ONE [facility] MONONITRATE 2-31 03-05 TABLET BY it y of 30 mg 24 hr 00:00: 00:00 MOUTH [place] tablet 00 :00 DAILY Medical Branch METOPROLOL 2019-07- No [id number] TAKE ONE [facility] SUCCINATE 2- 03-05 TABLET BY ity of XL 100 mg 00:00: 00:00 MOUTH [place] 24 hr 00 :00 DAILY Medical tablet Branch ATORVASTATI 2019-07- No [id number] TAKE ONE [facility] N 80 mg 2- 03-05 TABLET BY ity of tablet 00:00: 00:00 MOUTH AT [place] 00 :00 BEDTIME Medical Branch PANTOPRAZOL 2019-2020- No [id number] TAKE ONE [facility] E 40 mg EC -10 10-05 TABLET BY ity of tablet 00:00: 00:00 MOUTH [place] 00 :00 DAILY Medical Branch ISOSORBIDE 2020- Yes [id number] TAKE ONE [facility] MONONITRATE 0-05 TABLET BY ity of 30 mg 24 hr 00:00: MOUTH [place] tablet 00 DAILY Medical Branch BRILINTA 90 2019-07 Yes [id number] TAKE ONE [facility] mg tablet 0-05 TABLET BY ity o f 00:00: MOUTH [place] 00 TWICE A Medical DAY Branch METOPROLOL 2020- Yes [id number] TAKE ONE [facility] SUCCINATE 0-05 TABLET BY ity o f XL 100 mg 00:00: MOUTH [place] 24 hr 00 DAILY Medical tablet Branch PANTOPRAZOL 2020 Yes [id number] TAKE ONE [facility] E 40 mg EC 0-05 TABLET BY ity of tablet 00:00: MOUTH [place] 00 DAILY Medical Branch ATORVASTATI 2019- Yes [id number] TAKE ONE [facility] N 80 mg 0-05 TABLET BY ity of tablet 00:00: MOUTH AT [place] 00 BEDTIME Medical Branch ISOSORBIDE 2020- Yes [id number] TAKE ONE [facility] MONONITRATE 0-05 TABLET BY ity of 30 mg 24 hr 00:00: MOUTH [place] tablet 00 DAILY Medical Branch BRILINTA 90 2019-07 Yes [id number] TAKE ONE [facility] mg tablet 0-05 TABLET BY ity o f 00:00: MOUTH [place] 00 TWICE A Medical DAY Branch METOPROLOL 2020- Yes [id number] TAKE ONE [facility] SUCCINATE 0-05 TABLET BY ity o f XL 100 mg 00:00: MOUTH [place] 24 hr 00 DAILY Medical tablet Branch PANTOPRAZOL 2019-07 Yes [id number] TAKE ONE [facility] E 40 mg EC 0-05 TABLET BY ity of tablet 00:00: MOUTH [place] 00 DAILY Medical Branch ATORVASTATI 2019-07 Yes [id number] TAKE ONE [facility] N 80 mg 0-05 TABLET BY ity of tablet 00:00: MOUTH AT [place] 00 BEDTIME Medical Branch BRILINTA 90 2019-07 2020- No [id number] TAKE ONE [facility] mg tablet 0-05 12-31 TABLET BY ity of 00:00: 00:00 MOUTH [place] 00 :00 TWICE A Medical DAY Branch METOPROLOL 2019- 2020- No [id number] TAKE ONE [facility] SUCCINATE 0-05 12-31 TABLET BY ity of XL 100 mg 00:00: 00:00 MOUTH [place] 24 hr 00 :00 DAILY Medical tablet Branch PANTOPRAZOL 2019- 2020- No [id number] TAKE ONE [facility] E 40 mg EC 0-05 12-31 TABLET BY ity of tablet 00:00: 00:00 MOUTH [place] 00 :00 DAILY Medical Branch ATORVASTATI 2019-07 2020- No [id number] TAKE ONE [facility] N 80 mg 0-05 12-31 TABLET BY ity of tablet 00:00: 00:00 MOUTH AT [place] 00 :00 BEDTIME Medical Branch ISOSORBIDE 2020- 2020- No [id number] TAKE ONE [facility] MONONITRATE 0-05 12-31 TABLET BY it y of 30 mg 24 hr 00:00: 00:00 MOUTH [place] tablet 00 :00 DAILY Medical Branch ONETOUCH Yes USE THREE Univ ers VERIO TEST 9-17 TIMES A ity of STRIPS 00:00: DAY TO [place] strip 00 TEST BLOOS Medical SUGARS Branch ONETOUCH 2020-0 Yes USE THREE Univ ers VERIO TEST 9-17 TIMES A ity of STRIPS 00:00: DAY TO [place] strip 00 TEST BLOOS Medical SUGARS Branch ONETOUCH 2020-0 Yes USE THREE Univ ers VERIO TEST 9-17 TIMES A ity of STRIPS 00:00: DAY TO [place] strip 00 TEST BLOOS Medical SUGARS Branch ONETOUCH 2020-0 Yes USE THREE Univ ers VERIO TEST 9-17 TIMES A ity of STRIPS 00:00: DAY TO [place] strip 00 TEST BLOOS Medical SUGARS Branch ONETOUCH 2020-0 Yes USE THREE Univ ers VERIO TEST 9-17 TIMES A ity of STRIPS 00:00: DAY TO [place] strip 00 TEST BLOOS Medical SUGARS Branch ONETOUCH 2020-0 Yes USE THREE Univ ers VERIO TEST 9-17 TIMES A ity of STRIPS 00:00: DAY TO [place] strip 00 TEST BLOOS Medical SUGARS Branch ONETOUCH 2020-0 Yes USE THREE Univ ers VERIO TEST 9-17 TIMES A ity of STRIPS 00:00: DAY TO [place] strip 00 TEST BLOOS Medical SUGARS Branch ONETOUCH 2020-0 Yes USE THREE Univ ers VERIO TEST 9-17 TIMES A ity of STRIPS 00:00: DAY TO [place] strip 00 TEST BLOOS Medical SUGARS Branch ONETOUCH 2020-0 Yes USE THREE Univ ers VERIO TEST 9-17 TIMES A ity of STRIPS 00:00: DAY TO [place] strip 00 TEST BLOOS Medical SUGARS Branch ONETOUCH 2020-0 Yes USE THREE Univ ers VERIO TEST 9-17 TIMES A ity of STRIPS 00:00: DAY TO [place] strip 00 TEST BLOOS Medical SUGARS Branch ONETOUCH 2020-0 Yes USE THREE Univ ers VERIO TEST 9-17 TIMES A ity of STRIPS 00:00: DAY TO [place] strip 00 TEST BLOOS Medical SUGARS Branch ONETOUCH 2020-0 Yes USE THREE Univ ers VERIO TEST 9-17 TIMES A ity of STRIPS 00:00: DAY TO [place] strip 00 TEST BLOOS Medical SUGARS Branch ONETOUCH 2020-0 Yes USE THREE Univ ers VERIO TEST 9-17 TIMES A ity of STRIPS 00:00: DAY TO [place] strip 00 TEST BLOOS Medical SUGARS Branch ONETOUCH 2020-0 Yes USE THREE Univ ers VERIO TEST 9-17 TIMES A ity of STRIPS 00:00: DAY TO [place] strip 00 TEST BLOOS Medical SUGARS Branch ONETOUCH 2020-0 Yes USE THREE Univ ers VERIO TEST 03-29 TIMES A ity of STRIPS 00:00: DAY TO [place] strip 00 TEST BLOOS Medical SUGARS Branch ONETOUCH 2020-0 2020- No USE THREE Uni vers VERIO TEST 03-29 06-07 TIMES A ity o f STRIPS 00:00: 00:00 DAY TO [place] strip 00 :00 TEST BLOOS Medical SUGARS Branch JANUVIA 100 2020-0 Yes [id number] TAKE ONE [facility] mg tablet 8-03 TABLET BY ity o f 00:00: MOUTH [place] 00 DAILY Medical Branch JANUVIA 100 2020-0 Yes [id number] TAKE ONE [facility] mg tablet 8-03 TABLET BY ity o f 00:00: MOUTH [place] 00 DAILY Medical Branch JANUVIA 100 2020-0 Yes [id number] TAKE ONE [facility] mg tablet 8-03 TABLET BY ity o f 00:00: MOUTH [place] 00 DAILY Medical Branch JANUVIA 100 2020-0 Yes [id number] TAKE ONE [facility] mg tablet 8-03 TABLET BY ity o f 00:00: MOUTH [place] 00 DAILY Medical Branch JANUVIA 100 2020-0 Yes [id number] TAKE ONE [facility] mg tablet 8-03 TABLET BY ity o f 00:00: MOUTH [place] 00 DAILY Medical Branch JANUVIA 100 2020-0 Yes [id number] TAKE ONE [facility] mg tablet 8-03 TABLET BY ity o f 00:00: MOUTH [place] 00 DAILY Medical Branch JANUVIA 100 2020-0 Yes [id number] TAKE ONE [facility] mg tablet 8-03 TABLET BY ity o f 00:00: MOUTH [place] 00 DAILY Medical Branch JANUVIA 100 2020-0 Yes [id number] TAKE ONE [facility] mg tablet 8-03 TABLET BY ity o f 00:00: MOUTH [place] 00 DAILY Medical Branch JANUVIA 100 2020-0 Yes [id number] TAKE ONE [facility] mg tablet 8-03 TABLET BY ity o f 00:00: MOUTH [place] 00 DAILY Medical Branch JANUVIA 100 2020-0 2021- No [id number] TAKE ONE [facility] mg tablet 8-03 03-12 TABLET BY ity of 00:00: 00:00 MOUTH [place] 00 :00 DAILY Medical Branch JANUVIA 100 2020-0 2021- No [id number] TAKE ONE [facility] mg tablet 8-03 03-12 TABLET BY ity of 00:00: 00:00 MOUTH [place] 00 :00 DAILY Medical Branch PANTOPRAZOL 2020-0 Yes [id number] TAKE ONE [facility] E 40 mg EC 6-04 TABLET BY ity of tablet 00:00: MOUTH [place] 00 DAILY Medical Branch METOPROLOL 2020-0 Yes [id number] TAKE ONE [facility] SUCCINATE 6-04 TABLET BY ity o f XL 100 mg 00:00: MOUTH [place] 24 hr 00 DAILY Medical tablet Branch ATORVASTATI 2020-0 Yes [id number] TAKE ONE [facility] N 80 mg 6-04 TABLET BY ity of tablet 00:00: MOUTH AT [place] 00 BEDTIME Medical Branch BRILINTA 90 2020-0 Yes [id number] TAKE ONE [facility] mg tablet 6-04 TABLET BY ity o f 00:00: MOUTH [place] 00 TWICE A Medical DAY Branch ISOSORBIDE 2020-0 Yes [id number] TAKE ONE [facility] MONONITRATE 6-04 TABLET BY ity of 30 mg 24 hr 00:00: MOUTH [place] tablet 00 DAILY Medical Branch JANUVIA 100 2020-0 Yes [id number] TAKE ONE [facility] mg tablet 6-04 TABLET BY ity o f 00:00: MOUTH [place] 00 DAILY Medical Branch PANTOPRAZOL 2020-0 Yes [id number] TAKE ONE [facility] E 40 mg EC 6-04 TABLET BY ity of tablet 00:00: MOUTH [place] 00 DAILY Medical Branch METOPROLOL 2020-0 Yes [id number] TAKE ONE [facility] SUCCINATE 6-04 TABLET BY ity o f XL 100 mg 00:00: MOUTH [place] 24 hr 00 DAILY Medical tablet Branch ATORVASTATI 2020-0 Yes [id number] TAKE ONE [facility] N 80 mg 6-04 TABLET BY ity of tablet 00:00: MOUTH AT [place] 00 BEDTIME Medical Branch BRILINTA 90 2020-0 Yes [id number] TAKE ONE [facility] mg tablet 6-04 TABLET BY ity o f 00:00: MOUTH [place] 00 TWICE A Medical DAY Branch ISOSORBIDE 2020-0 Yes [id number] TAKE ONE [facility] MONONITRATE 6-04 TABLET BY ity of 30 mg 24 hr 00:00: MOUTH [place] tablet 00 DAILY Medical Branch JANUVIA 100 2020-0 Yes [id number] TAKE ONE [facility] mg tablet 6-04 TABLET BY ity o f 00:00: MOUTH [place] 00 DAILY Medical Branch PANTOPRAZOL 2020-0 Yes [id number] TAKE ONE [facility] E 40 mg EC 6-04 TABLET BY ity of tablet 00:00: MOUTH [place] 00 DAILY Medical Branch METOPROLOL 2020-0 Yes [id number] TAKE ONE [facility] SUCCINATE 6-04 TABLET BY ity o f XL 100 mg 00:00: MOUTH [place] 24 hr 00 DAILY Medical tablet Branch ATORVASTATI 2020-0 Yes [id number] TAKE ONE [facility] N 80 mg 6-04 TABLET BY ity of tablet 00:00: MOUTH AT [place] 00 BEDTIME Medical Branch BRILINTA 90 2020-0 Yes [id number] TAKE ONE [facility] mg tablet 6-04 TABLET BY ity o f 00:00: MOUTH [place] 00 TWICE A Medical DAY Branch ISOSORBIDE 2020-0 Yes [id number] TAKE ONE [facility] MONONITRATE 6-04 TABLET BY ity of 30 mg 24 hr 00:00: MOUTH [place] tablet 00 DAILY Medical Branch PANTOPRAZOL 2020-0 Yes [id number] TAKE ONE [facility] E 40 mg EC 6-04 TABLET BY ity of tablet 00:00: MOUTH [place] 00 DAILY Medical Branch METOPROLOL 2020-0 Yes [id number] TAKE ONE [facility] SUCCINATE 6-04 TABLET BY ity o f XL 100 mg 00:00: MOUTH [place] 24 hr 00 DAILY Medical tablet Branch ATORVASTATI 2020-0 Yes [id number] TAKE ONE [facility] N 80 mg 6-04 TABLET BY ity of tablet 00:00: MOUTH AT [place] 00 BEDTIME Medical Branch BRILINTA 90 2020-0 Yes [id number] TAKE ONE [facility] mg tablet 6-04 TABLET BY ity o f 00:00: MOUTH [place] 00 TWICE A Medical DAY Branch ISOSORBIDE 2020-0 Yes [id number] TAKE ONE [facility] MONONITRATE 6-04 TABLET BY ity of 30 mg 24 hr 00:00: MOUTH [place] tablet 00 DAILY Medical Branch PANTOPRAZOL 2020-0 Yes [id number] TAKE ONE [facility] E 40 mg EC 6-04 TABLET BY ity of tablet 00:00: MOUTH [place] 00 DAILY Medical Branch METOPROLOL 2020-0 Yes [id number] TAKE ONE [facility] SUCCINATE 6-04 TABLET BY ity o f XL 100 mg 00:00: MOUTH [place] 24 hr 00 DAILY Medical tablet Branch ATORVASTATI 2020-0 Yes [id number] TAKE ONE [facility] N 80 mg 6-04 TABLET BY ity of tablet 00:00: MOUTH AT [place] 00 BEDTIME Medical Branch BRILINTA 90 2020-0 Yes [id number] TAKE ONE [facility] mg tablet 6-04 TABLET BY ity o f 00:00: MOUTH [place] 00 TWICE A Medical DAY Branch ISOSORBIDE 2020-0 Yes [id number] TAKE ONE [facility] MONONITRATE 6-04 TABLET BY ity of 30 mg 24 hr 00:00: MOUTH [place] tablet 00 DAILY Medical Branch PANTOPRAZOL 0 2020- No [id number] TAKE ONE [facility] E 40 mg EC 6-04 10-05 TABLET BY ity of tablet 00:00: 00:00 MOUTH [place] 00 :00 DAILY Medical Branch METOPROLOL 0 2020- No [id number] TAKE ONE [facility] SUCCINATE 6-04 10-05 TABLET BY ity of XL 100 mg 00:00: 00:00 MOUTH [place] 24 hr 00 :00 DAILY Medical tablet Branch ATORVASTATI 0 2020- No [id number] TAKE ONE [facility] N 80 mg 6-04 10-05 TABLET BY ity of tablet 00:00: 00:00 MOUTH AT [place] 00 :00 BEDTIME Medical Branch BRILINTA 90 0 2020- No [id number] TAKE ONE [facility] mg tablet 6-04 10-05 TABLET BY ity of 00:00: 00:00 MOUTH [place] 00 :00 TWICE A Medical DAY Branch ISOSORBIDE 0 2020- No [id number] TAKE ONE [facility] MONONITRATE 6-04 10-05 TABLET BY it y of 30 mg 24 hr 00:00: 00:00 MOUTH [place] tablet 00 :00 DAILY Medical Branch JANUVIA 100 0 2020- No [id number] TAKE ONE [facility] mg tablet 6-04 08-03 TABLET BY ity of 00:00: 00:00 MOUTH [place] 00 :00 DAILY Medical Branch ONETOUCH 0 Yes USE THREE Univ ers VERIO strip 6-01 TIMES A ity o f 00:00: DAY [place] Medical Branch ONETOUCH 2019-0 Yes USE THREE Univ ers VERIO strip 6-01 TIMES A ity o f 00:00: DAY [place] [facility] Branch ONETOUCH 2019-0 Yes USE THREE Univ ers VERIO strip 6-01 TIMES A ity o f 00:00: DAY [place] [facility] Branch ONETOUCH 2019-0 2020- No USE THREE Uni vers VERIO strip 6- 09-17 TIMES A ity of 00:00: 00:00 DAY [place] 00 :00 Medical Branch glimepiride 2019-0 Yes 2mg Take 2 mg U nivers 2 mg tablet 3-11 by mouth ity of 13:20: daily with [place] 09 breakfast. Medical Branch glimepiride 2020-0 Yes 2mg Take 2 mg U nivers 2 mg tablet 3-11 by mouth ity of 13:20: daily with breakfast. Medical Branch glimepiride 2020-0 Yes 2mg Take 2 mg U nivers 2 mg tablet 3-11 by mouth ity of 13:20: daily with breakfast. Medical Branch glimepiride 2020-0 Yes 2mg Take 2 mg U nivers 2 mg tablet 3-11 by mouth ity of 13:20: daily with breakfast. Medical Branch glimepiride 2020-0 Yes 2mg Take 2 mg U nivers 2 mg tablet 3-11 by mouth ity of 13:20: daily with breakfast. Medical Branch glimepiride 2020-0 Yes 2mg Take 2 mg U nivers 2 mg tablet 3-11 by mouth ity of 13:20: daily with breakfast. Medical Branch glimepiride 2020-0 Yes 2mg Take 2 mg U nivers 2 mg tablet 3-11 by mouth ity of 13:20: daily with breakfast. Medical Branch glimepiride 2020-0 Yes 2mg Take 2 mg U nivers 2 mg tablet 3-11 by mouth ity of 13:20: daily with breakfast. Medical Branch glimepiride 2020-0 Yes 2mg Take 2 mg U nivers 2 mg tablet 3-11 by mouth ity of 13:20: daily with breakfast. Medical Branch glimepiride 2020-0 Yes 2mg Take 2 mg U nivers 2 mg tablet 3-11 by mouth ity of 13:20: daily with breakfast. Medical Branch glimepiride 2020-0 Yes 2mg Take 2 mg U nivers 2 mg tablet 3-11 by mouth ity of 13:20: daily with breakfast. Medical Branch glimepiride 2020-0 Yes 2mg Take 2 mg U nivers 2 mg tablet 3-11 by mouth ity of 13:20: daily with breakfast. Medical Branch glimepiride 2020-0 Yes 2mg Take 2 mg U nivers 2 mg tablet 3-11 by mouth ity of 13:20: daily with breakfast. Medical Branch glimepiride 2020-0 Yes 2mg Take 2 mg U nivers 2 mg tablet 3-11 by mouth ity of 13:20: daily with 09 breakfast. Medical Branch glimepiride 2020-0 Yes 2mg Take 2 mg U nivers 2 mg tablet 3-11 by mouth ity of 13:20: daily with [place] 09 breakfast. Medical Branch glimepiride 2020-0 Yes [id number] 2mg Take 1 [facility] 2 mg tablet 3-11 tablet by ity of 00:00: mouth [place] 00 daily with Medical breakfast. [facility] glimepiride 2020-0 Yes [id number] 2mg Take 1 [facility] 2 mg tablet 3-11 tablet by ity of 00:00: mouth [place] 00 daily with Medical breakfast. [place] glimepiride 2020-0 Yes [id number] 2mg Take 1 [facility] 2 mg tablet 3-11 tablet by ity of 00:00: mouth [place] 00 daily with Medical breakfast. [place] glimepiride 2020-0 Yes [id number] 2mg Take 1 [facility] 2 mg tablet 3-11 tablet by ity of 00:00: mouth [place] 00 daily with Medical breakfast. [facility] glimepiride 2019-0 Yes [id number] 2mg Take 1 [facility] 2 mg tablet 3-11 tablet by ity of 00:00: mouth [place] 00 daily with Medical breakfast. [facility] glimepiride 2019-0 2020- No [id number] 2mg Take 1 [facility] 2 mg tablet 3-11 06-10 tablet by it y of 00:00: 00:00 mouth [place] 00 :00 daily with Medical breakfast. [facility] atorvastati 2019-0 Yes 80mg 80 mg, Univ ers n (LIPITOR) 1-25 Oral, QHS, it y of tablet 80 03:00: First dose [place] mg 00 on Thu Medical 08/05/19 at Critz 2100, Until Discontinu ed, Routine lidocaine 2020-0 2020- No 1{patch 1 Patch, [facility] (LIDODERM) 08-05 } Topical, ity of 5 % (700 19:15: 09:15 Administer [place] mg/patch) 00 :00 over 12 Medical patch 1 Hours, [facility] Patch ONCE, 1 dose, 08/05/19 at 1315, Routine pantoprazol 2019-0 Yes 40mg 40 mg, Univ ers e 1-24 Oral, ity of (PROTONIX) 15:00: DAILY, [place] EC tablet 00 First dose Medi mar[place] 40 mg on Thu Branch 08/05/19 at 0900, Until Discontinu ed, Routine metoprolol 2020-0 Yes 100mg 100 mg, Uni vers succinate 1-24 Oral, ity of XL (TOPROL 15:00: DAILY, [place] XL) tablet 00 First dose Med ical 100 mg on Thu Branch 08/05/19 at 0900, Until Discontinu ed, Routine isosorbide 2020-0 Yes 30mg 30 mg, Unive rs mononitrate -24 Oral, ity of (IMDUR) 24 15:00: DAILY, [place] hr tablet 00 First dose Medi [place] 30 mg on Thu Branch 08/05/19 at 0900, Until Discontinu ed, Routine ticagrelor 2020-0 Yes 90mg 90 mg, Unive rs (BRILINTA) 1-24 Oral, BID, ity of tablet 90 14:00: First dose [place] mg 00 on [facility] 08/05/19 at Branch 0800, Until Discontinu ed, Routine HYDROcodone 2020-0 Yes 1{tbl} 1 tablet, Univers -acetaminop -24 Oral, ity of hen (NORCO) 09:17: Q6HPRN, [place] 10-325 mg 00 Starting Medica l tablet 1 Thu Branch tablet 08/05/19 at 0317, Until Discontinu ed, Routine, Pain (scale 4-6) ondansetron 2020-0 Yes 4mg 4 mg, Slow Univers (ZOFRAN 1-24 IV Push, ity of (PF)) 06:16: Q6HPRN, [place] injection 4 55 Starting Medi [place] mg Thu Branch 08/05/19 at 0016, Until Discontinu ed, Routine, Nausea and Vomiting (N/V) olmesartan 2020-0 Yes 40mg 40 mg, Unive rs (BENICAR) 1-24 Oral, ity of tablet 40 05:30: DAILY, [place] mg 00 First dose Medical on [facility] Branch 08/04/19 at 2330, Until Discontinu ed, Routine Sliding 2020-0 Yes Subcutaneo Univ ers Scale 1-24 us, TID ity of Insulin - 05:15: MEALS+HS, [place] Aspart 00 First dose Medical (NOVOLOG) + on [facility] Branch [facility] 08/04/19 at Testing 2315, Until Discontinu ed, Routine FENTanyl PF 2020-0 Yes 25ug 25 mcg, Uni vers (SUBLIMAZE 24 Slow IV ity of (PF)) 05:03: Push, [place] injection 53 Q6HPRN, Medical 25 mcg Starting Branch [facility] 08/04/19 at 2303, Until Discontinu ed, Routine, Pain (scale 7-10) ondansetron 2020-0 2020- No 4mg 4 mg, Slow [facility] (ZOFRAN 08-05 IV Push, ity of (PF)) 04:15: 03:44 ONCE, 1 [place] injection 4 00 :00 dose, [place] Med ical mg 08/04/19 at Branch 2215, PUJA morpHINE 2020-0 2020- No 4mg 4 mg, Slow Un [place] injection 4 08-05 IV Push, ity of mg 04:15: 03:44 ONCE, 1 [place] 00 :00 dose, [facility] Medical 08/04/19 at Branch 2215, STAT ondansetron 2020-0 2020- No 4mg 4 mg, Slow [facility] (ZOFRAN 08-05 IV Push, ity of (PF)) 03:30: 02:33 ONCE, 1 [place] injection 4 00 :00 dose, [place] [facility] ical mg 08/04/19 at Branch 2130, PUJA FENTanyl PF 2019-0 2020- No 50ug 50 mcg, Un [place] (SUBLIMAZE 08-05 Slow IV ity o f (PF)) 03:30: 02:33 Push, [place] injection 00 :00 ONCE, 1 Medical 50 mcg dose, [facility] Branch 08/04/19 at 2130, Routine lidocaine 5 2020-0 Yes [id number] 1{patch Apply 1 [facility] % (700 1-24 } Patch to ity of mg/patch) 00:00: area(s) [place] patch 00 daily. Medical Branch acetaminoph 2020-0 Yes [id number] 1{tbl} Take 1 [facility] en-codeine 1-24 tablet by ity of 300-30 mg 00:00: mouth [place] tablet 00 every 6 Medical (six) Branch hours as needed for Pain (scale 7-10). lidocaine 5 2020-0 2020- No [id number] 1{patch Apply 1 [facility] % (700 1-24 03-11 } Patch to ity of mg/patch) 00:00: 00:00 area(s) [place] patch 00 :00 daily. Medical Branch acetaminoph 2019- 2020- No [id number] 1{tbl} Take 1 [facility] en-codeine 08-05-11 tablet by ity of 300-30 mg 00:00: 00:00 mouth [place] tablet 00 :00 every 6 Medical (six) Branch hours as needed for Pain (scale 7-10). lidocaine 5 2019-2019- No [id number] 1{patch Apply 1 [facility] % (700 08-05 } Patch to ity of mg/patch) 00:00: [place] :00 daily. [facility] acetaminoph 2019-0 2020- No [id number] 1{tbl} Take 1 [facility] en-codeine 08-05- tablet by ity of 300-30 mg 00:00: 00:00 mouth [place] tablet 00 :00 every 6 Medical (six) Branch hours as needed for Pain (scale 7-10). ondansetron 2019- No 4mg 4 mg, Slow [facility] (ZOFRAN 08-02 IV Push, ity of (PF)) 03:30: 02:27 ONCE, 1 [place] injection 4 00 :00 dose, Mon Med ical mg 08/01/19 at Branch 2130, PUJA FENTanyl PF 2020- No 50ug 50 mcg, Un [facility] (SUBLIMAZE 08-02 Slow IV ity o f (PF)) 03:30: 02:27 Push, [place] injection 00 :00 ONCE, 1 Medical 50 mcg dose, [facility] 08/01/19 at 2130, Routine FENTanyl PF 2020- No 75ug 75 mcg, [facility] [place] (SUBLIMAZE 08-02 Slow IV ity o f (PF)) 02:00: 01:04 Push, [place] injection 00 :00 ONCE, 1 Medical 75 mcg dose, [facility] 08/01/19 at 2000, STAT iohexol 2019- 2020- No 120mL 120 mL, Unive rs (OMNIPAQUE 08-02 Intravenou it y of 350 01:15: 01:15 s, ONCE, 1 [place] BULK-150 00 :00 dose, Mon Medica l mL) 08/01/19 at Branch injection 1915, 120 mL Routine ondansetron 2019-0 2020- No 4mg 4 mg, Slow [facility] (ZOFRAN 08-01 IV Push, ity of (PF)) 23:30: 22:34 ONCE, 1 [place] injection 4 00 :00 dose, Mon Med ical mg 08/01/19 at Branch 1730, PUJA FENTanyl PF 2019-2019- No 75ug 75 mcg, [facility] [place] (SUBLIMAZE 08-01 Slow IV ity o f (PF)) 23:30: 22:34 Push, [place] injection 00 :00 ONCE, 1 Medical 75 mcg dose, Mon Branch 08/01/19 at 1730, STAT ONETOUCH 2019-0 Yes USE THREE [facility] ers VERIO strip 1-02 TIMES A ity o f 00:00: DAY Medical Branch ONETOUCH 2020-0 Yes USE THREE [facility] ers VERIO strip 1-02 TIMES A ity o f 00:00: Medical Branch ONETOUCH 2020-0 Yes USE THREE [facility] ers VERIO strip 1-02 TIMES A ity o f 00:00: Medical Branch ONETOUCH 2020-0 Yes USE THREE [facility] ers VERIO strip 1-02 TIMES A ity o f 00:00: Medical Branch ONETOUCH 2020-0 Yes USE THREE [facility] ers VERIO strip 1-02 TIMES A ity o f 00:00: Medical Branch ONETOUCH 2020-0 Yes USE THREE [facility] ers VERIO strip 1-02 TIMES A ity o f 00:00: Medical Branch ONETOUCH 2020-0 Yes USE THREE [facility] ers VERIO strip 1-02 TIMES A ity o f 00:00: DAY Medical Branch olmesartan 2019- Yes [id number] 40mg Take 1 U nivers 40 mg 0-03 tablet by ity of tablet 00:00: mouth 00 daily. Medical Branch olmesartan 2018- Yes [id number] 40mg Take 1 [facility] nivers 40 mg 0-03 tablet by ity of tablet 00:00: mouth 00 daily. Medical Branch olmesartan 2018- Yes [id number] 40mg Take 1 [facility] nivers 40 mg 0-03 tablet by ity of tablet 00:00: mouth 00 daily. Medical Branch olmesartan 2018- Yes [id number] 40mg Take 1 [facility] nivers 40 mg 0-03 tablet by ity of tablet 00:00: mouth [place] 00 daily. Medical Branch olmesartan 2018-07 Yes [id number] 40mg Take 1 [facility] nivers 40 mg 0-03 tablet by ity of tablet 00:00: mouth [place] 00 daily. Medical Branch olmesartan 2018-07 Yes [id number] 40mg Take 1 U nivers 40 mg 0-03 tablet by ity of tablet 00:00: mouth [place] 00 daily. Medical Branch olmesartan 2018-07 Yes [id number] 40mg Take 1 U nivers 40 mg 0-03 tablet by ity of tablet 00:00: mouth [place] 00 daily. Medical Branch olmesartan 2018-07 Yes [id number] 40mg Take 1 U nivers 40 mg 0-03 tablet by ity of tablet 00:00: mouth [place] 00 daily. Medical Branch olmesartan 2018-07 Yes [id number] 40mg Take 1 U nivers 40 mg 0-03 tablet by ity of tablet 00:00: mouth [place] 00 daily. Medical Branch olmesartan 2018-07 Yes [id number] 40mg Take 1 U nivers 40 mg 0-03 tablet by ity of tablet 00:00: mouth [place] 00 daily. Medical Branch olmesartan 2018-07 Yes [id number] 40mg Take 1 U nivers 40 mg 0-03 tablet by ity of tablet 00:00: mouth [place] 00 daily. Medical Branch olmesartan 2018-07 Yes [id number] 40mg Take 1 U nivers 40 mg 0-03 tablet by ity of tablet 00:00: mouth [place] 00 daily. Medical Branch olmesartan 2018-07 Yes [id number] 40mg Take 1 U nivers 40 mg 0-03 tablet by ity of tablet 00:00: mouth [place] 00 daily. Medical Branch olmesartan 2018-07 Yes [id number] 40mg Take 1 U nivers 40 mg 0-03 tablet by ity of tablet 00:00: mouth [place] 00 daily. Medical Branch olmesartan 2018-07 Yes [id number] 40mg Take 1 U nivers 40 mg 0-03 tablet by ity of tablet 00:00: mouth [place] 00 daily. Medical Branch olmesartan 2018-07 Yes [id number] 40mg Take 1 U nivers 40 mg 0-03 tablet by ity of tablet 00:00: mouth [place] 00 daily. Medical Branch olmesartan 2018-07 Yes [id number] 40mg Take 1 U nivers 40 mg 0-03 tablet by ity of tablet 00:00: mouth [place] 00 daily. Medical Branch olmesartan 2018-07 Yes [id number] 40mg Take 1 U nivers 40 mg 0-03 tablet by ity of tablet 00:00: mouth [place] 00 daily. Medical Branch olmesartan 2018-07 Yes [id number] 40mg Take 1 U nivers 40 mg 0-03 tablet by ity of tablet 00:00: mouth [place] 00 daily. Medical Branch olmesartan 2018-07 Yes [id number] 40mg Take 1 U nivers 40 mg 0-03 tablet by ity of tablet 00:00: mouth [place] 00 daily. Medical Branch olmesartan 2018-07 Yes [id number] 40mg Take 1 U nivers 40 mg 0-03 tablet by ity of tablet 00:00: mouth [place] 00 daily. Medical Branch olmesartan 2018-07 Yes [id number] 40mg Take 1 U nivers 40 mg 0-03 tablet by ity of tablet 00:00: mouth [place] 00 daily. Medical Branch olmesartan 2018-07 Yes [id number] 40mg Take 1 U nivers 40 mg 0-03 tablet by ity of tablet 00:00: mouth [place] 00 daily. Medical Branch olmesartan 2018-07 Yes [id number] 40mg Take 1 U nivers 40 mg 0-03 tablet by ity of tablet 00:00: mouth [place] 00 daily. Medical Branch olmesartan 2018-07 Yes [id number] 40mg Take 1 U nivers 40 mg 0-03 tablet by ity of tablet 00:00: mouth [place] 00 daily. Medical Branch olmesartan 2018-07 Yes [id number] 40mg Take 1 U nivers 40 mg 0-03 tablet by ity of tablet 00:00: mouth [place] 00 daily. Medical Branch olmesartan 2018-07 Yes [id number] 40mg Take 1 U nivers 40 mg 0-03 tablet by ity of tablet 00:00: mouth [place] 00 daily. Medical Branch olmesartan 2018-07 Yes [id number] 40mg Take 1 U nivers 40 mg 0-03 tablet by ity of tablet 00:00: mouth [place] 00 daily. Medical Branch olmesartan 2018-07 Yes [id number] 40mg Take 1 U nivers 40 mg 0-03 tablet by ity of tablet 00:00: mouth [place] 00 daily. Medical Branch olmesartan 2018-07 Yes [id number] 40mg Take 1 U nivers 40 mg 0-03 tablet by ity of tablet 00:00: mouth [place] 00 daily. Medical Branch olmesartan 2018-07 Yes [id number] 40mg Take 1 U nivers 40 mg 0-03 tablet by ity of tablet 00:00: mouth [place] 00 daily. Medical Branch olmesartan 2018-07 Yes [id number] 40mg Take 1 U nivers 40 mg 0-03 tablet by ity of tablet 00:00: mouth [place] 00 daily. Medical Branch olmesartan 2018-07 Yes [id number] 40mg Take 1 U nivers 40 mg 0-03 tablet by ity of tablet 00:00: mouth [place] 00 daily. Medical Branch olmesartan 2018-07 Yes [id number] 40mg Take 1 U nivers 40 mg 0-03 tablet by ity of tablet 00:00: mouth [place] 00 daily. Medical Branch olmesartan 2018-07 Yes [id number] 40mg Take 1 U nivers 40 mg 0-03 tablet by ity of tablet 00:00: mouth [place] 00 daily. Medical Branch olmesartan 2018-07 Yes [id number] 40mg Take 1 U nivers 40 mg 0-03 tablet by ity of tablet 00:00: mouth [place] 00 daily. Medical Branch olmesartan 2018-07 Yes [id number] 40mg Take 1 U nivers 40 mg 0-03 tablet by ity of tablet 00:00: mouth [place] 00 daily. Medical Branch olmesartan 2018-07 Yes [id number] 40mg Take 1 U nivers 40 mg 0-03 tablet by ity of tablet 00:00: mouth [place] 00 daily. Medical Branch olmesartan 2018-07 Yes [id number] 40mg Take 1 U nivers 40 mg 0-03 tablet by ity of tablet 00:00: mouth [place] 00 daily. Medical Branch olmesartan 2018-07 Yes [id number] 40mg Take 1 U nivers 40 mg 0-03 tablet by ity of tablet 00:00: mouth [place] 00 daily. Medical Branch olmesartan 2018-07 Yes [id number] 40mg Take 1 U nivers 40 mg 0-03 tablet by ity of tablet 00:00: mouth [place] 00 daily. Medical Branch olmesartan 2018-07 Yes [id number] 40mg Take 1 U nivers 40 mg 0-03 tablet by ity of tablet 00:00: mouth [place] 00 daily. Medical Branch olmesartan 2018-07 Yes [id number] 40mg Take 1 U nivers 40 mg 0-03 tablet by ity of tablet 00:00: mouth [place] 00 daily. Medical Branch olmesartan 2018-07 Yes [id number] 40mg Take 1 U nivers 40 mg 0-03 tablet by ity of tablet 00:00: mouth [place] 00 daily. Medical Branch olmesartan 2018-07 Yes [id number] 40mg Take 1 U nivers 40 mg 0-03 tablet by ity of tablet 00:00: mouth [place] 00 daily. Medical Branch olmesartan 2018-07 Yes [id number] 40mg Take 1 U nivers 40 mg 0-03 tablet by ity of tablet 00:00: mouth [place] 00 daily. Medical Branch olmesartan 2018-07 Yes [id number] 40mg Take 1 U nivers 40 mg 0-03 tablet by ity of tablet 00:00: mouth [place] 00 daily. Medical Branch olmesartan 2018-07 Yes [id number] 40mg Take 1 U nivers 40 mg 0-03 tablet by ity of tablet 00:00: mouth [place] 00 daily. Medical Branch olmesartan 2018-07 Yes [id number] 40mg Take 1 U nivers 40 mg 0-03 tablet by ity of tablet 00:00: mouth [place] 00 daily. Medical Branch olmesartan 2018-07 Yes [id number] 40mg Take 1 U nivers 40 mg 0-03 tablet by ity of tablet 00:00: mouth [place] 00 daily. Medical Branch olmesartan 2018-07 Yes [id number] 40mg Take 1 U nivers 40 mg 0-03 tablet by ity of tablet 00:00: mouth [place] 00 daily. Medical Branch olmesartan 2018-07 Yes [id number] 40mg Take 1 U nivers 40 mg 0-03 tablet by ity of tablet 00:00: mouth [place] 00 daily. Medical Branch olmesartan 2018-07 Yes [id number] 40mg Take 1 U nivers 40 mg 0-03 tablet by ity of tablet 00:00: mouth [place] 00 daily. Medical Branch olmesartan 2018-07 Yes [id number] 40mg Take 1 U nivers 40 mg 0-03 tablet by ity of tablet 00:00: mouth [place] 00 daily. Medical Branch olmesartan 2018-07 Yes [id number] 40mg Take 1 U nivers 40 mg 0-03 tablet by ity of tablet 00:00: mouth [place] 00 daily. Medical Branch olmesartan 2018-07 Yes [id number] 40mg Take 1 U nivers 40 mg 0-03 tablet by ity of tablet 00:00: mouth [place] 00 daily. Medical Branch olmesartan 2018-07 Yes [id number] 40mg Take 1 U nivers 40 mg 0-03 tablet by ity of tablet 00:00: mouth [place] 00 daily. Medical Branch olmesartan 2018-07 Yes [id number] 40mg Take 1 U nivers 40 mg 0-03 tablet by ity of tablet 00:00: mouth [place] 00 daily. Medical Branch olmesartan 2018-07 Yes [id number] 40mg Take 1 U nivers 40 mg 0-03 tablet by ity of tablet 00:00: mouth [place] 00 daily. Medical Branch olmesartan 2018-07 Yes [id number] 40mg Take 1 U nivers 40 mg 0-03 tablet by ity of tablet 00:00: mouth [place] 00 daily. Medical Branch olmesartan 2018-07 Yes [id number] 40mg Take 1 U nivers 40 mg 0-03 tablet by ity of tablet 00:00: mouth [place] 00 daily. Medical Branch olmesartan 2018-07 Yes [id number] 40mg Take 1 U nivers 40 mg 0-03 tablet by ity of tablet 00:00: mouth [place] 00 daily. Medical Branch olmesartan 2018-07 Yes [id number] 40mg Take 1 U nivers 40 mg 0-03 tablet by ity of tablet 00:00: mouth [place] 00 daily. Medical Branch olmesartan 2018-07 Yes [id number] 40mg Take 1 U nivers 40 mg 0-03 tablet by ity of tablet 00:00: mouth [place] 00 daily. Medical Branch olmesartan 2018-07 Yes [id number] 40mg Take 1 U nivers 40 mg 0-03 tablet by ity of tablet 00:00: mouth [place] 00 daily. Medical Branch olmesartan 2018-07 Yes [id number] 40mg Take 1 U nivers 40 mg 0-03 tablet by ity of tablet 00:00: mouth [place] 00 daily. Medical Branch olmesartan 2018-07 Yes [id number] 40mg Take 1 U nivers 40 mg 0-03 tablet by ity of tablet 00:00: mouth [place] 00 daily. Medical Branch olmesartan 2018-07 Yes [id number] 40mg Take 1 U nivers 40 mg 0-03 tablet by ity of tablet 00:00: mouth [place] 00 daily. Medical Branch olmesartan 2018-07 Yes [id number] 40mg Take 1 U nivers 40 mg 0-03 tablet by ity of tablet 00:00: mouth 00 daily. Medical Branch olmesartan 2018-07 Yes [id number] 40mg Take 1 U nivers 40 mg 0-03 tablet by ity of tablet 00:00: mouth [place] 00 daily. Medical Branch olmesartan 2018-07 Yes [id number] 40mg Take 1 U nivers 40 mg 0-03 tablet by ity of tablet 00:00: mouth 00 daily. Medical Branch LORazepam 1 Yes [id number] 1mg Take 1 [facility] mg tablet 9-04 tablet by ity o f 00:00: mouth (two) Medical times Branch daily as needed for Anxiety or Agitation. LORazepam 1 Yes [id number] 1mg Take 1 [facility] mg tablet 9-04 tablet by ity o f 00:00: mouth (two) Medical times Branch daily as needed for Anxiety or Agitation. LORazepam 1 Yes [id number] 1mg Take 1 [facility] mg tablet 9-04 tablet by ity o f 00:00: mouth (two) Medical times Branch daily as needed for Anxiety or Agitation. LORazepam 1 Yes [id number] 1mg Take 1 [facility] mg tablet 9-04 tablet by ity o f 00:00: mouth (two) Medical times Branch daily as needed for Anxiety or Agitation. LORazepam 1 Yes [id number] 1mg Take 1 [facility] mg tablet 9-04 tablet by ity o f 00:00: mouth (two) Medical times Branch daily as needed for Anxiety or Agitation. LORazepam 1 Yes [id number] 1mg Take 1 [facility] mg tablet 9-04 tablet by ity o f 00:00: mouth (two) Medical times Branch daily as needed for Anxiety or Agitation. LORazepam 1 Yes [id number] 1mg Take 1 [facility] mg tablet 9-04 tablet by ity o f 00:00: mouth (two) Medical times Branch daily as needed for Anxiety or Agitation. LORazepam 1 Yes [id number] 1mg Take 1 [facility] mg tablet 9-04 tablet by ity o f 00:00: mouth (two) Medical times Branch daily as needed for Anxiety or Agitation. LORazepam 1 Yes [id number] 1mg Take 1 [facility] mg tablet 9-04 tablet by ity o f 00:00: mouth 2 (two) Medical times Branch daily as needed for Anxiety or Agitation. LORazepam 1 Yes [id number] 1mg Take 1 [facility] mg tablet 9-04 tablet by ity o f 00:00: mouth 2 (two) Medical times Branch daily as needed for Anxiety or Agitation. LORazepam 1 Yes [id number] 1mg Take 1 [facility] mg tablet 9-04 tablet by ity o f 00:00: mouth 2 (two) Medical times Branch daily as needed for Anxiety or Agitation. LORazepam 1 Yes [id number] 1mg Take 1 [facility] mg tablet 9-04 tablet by ity o f 00:00: mouth 2 (two) Medical times Branch daily as needed for Anxiety or Agitation. LORazepam 1 Yes [id number] 1mg Take 1 [facility] mg tablet 9-04 tablet by ity o f 00:00: mouth (two) Medical times Branch daily as needed for Anxiety or Agitation. LORazepam 1 Yes [id number] 1mg Take 1 [facility] mg tablet 9-04 tablet by ity o f 00:00: mouth (two) Medical times Branch daily as needed for Anxiety or Agitation. LORazepam 1 Yes [id number] 1mg Take 1 [facility] mg tablet 9-04 tablet by ity o f 00:00: mouth (two) Medical times Branch daily as needed for Anxiety or Agitation. LORazepam 1 Yes [id number] 1mg Take 1 [facility] mg tablet 9-04 tablet by ity o f 00:00: mouth (two) Medical times Branch daily as needed for Anxiety or Agitation. LORazepam 1 Yes [id number] 1mg Take 1 [facility] mg tablet 9-04 tablet by ity o f 00:00: mouth 2 (two) Medical times Branch daily as needed for Anxiety or Agitation. LORazepam 1 Yes [id number] 1mg Take 1 [facility] mg tablet 9-04 tablet by ity o f 00:00: mouth 2 (two) Medical times Branch daily as needed for Anxiety or Agitation. LORazepam 1 2019-0 Yes [id number] 1mg Take 1 [facility] mg tablet 9-04 tablet by ity o f 00:00: mouth 2 (two) Medical times Branch daily as needed for Anxiety or Agitation. LORazepam 1 Yes [id number] 1mg Take 1 [facility] mg tablet 9-04 tablet by ity o f 00:00: mouth 2 (two) Medical times Branch daily as needed for Anxiety or Agitation. LORazepam 1 Yes [id number] 1mg Take 1 [facility] mg tablet 9-04 tablet by ity o f 00:00: mouth 2 (two) Medical times Branch daily as needed for Anxiety or Agitation. LORazepam 1 Yes [id number] 1mg Take 1 [facility] mg tablet 9-04 tablet by ity o f 00:00: mouth (two) Medical times Branch daily as needed for Anxiety or Agitation. LORazepam 1 Yes [id number] 1mg Take 1 [facility] mg tablet 9-04 tablet by ity o f 00:00: mouth (two) Medical times Branch daily as needed for Anxiety or Agitation. LORazepam 1 Yes [id number] 1mg Take 1 [facility] mg tablet 9-04 tablet by ity o f 00:00: mouth (two) Medical times Branch daily as needed for Anxiety or Agitation. LORazepam 1 Yes [id number] 1mg Take 1 [facility] mg tablet 9-04 tablet by ity o f 00:00: mouth (two) Medical times Branch daily as needed for Anxiety or Agitation. LORazepam 1 Yes [id number] 1mg Take 1 [facility] mg tablet 9-04 tablet by ity o f 00:00: mouth (two) Medical times Branch daily as needed for Anxiety or Agitation. LORazepam 1 Yes [id number] 1mg Take 1 [facility] mg tablet 9-04 tablet by ity o f 00:00: mouth 2 (two) Medical times Branch daily as needed for Anxiety or Agitation. LORazepam 1 Yes [id number] 1mg Take 1 [facility] mg tablet 9-04 tablet by ity o f 00:00: mouth 2 (two) Medical times Branch daily as needed for Anxiety or Agitation. LORazepam 1 Yes [id number] 1mg Take 1 [facility] mg tablet 9-04 tablet by ity o f 00:00: mouth 2 (two) Medical times Branch daily as needed for Anxiety or Agitation. LORazepam 1 Yes [id number] 1mg Take 1 [facility] mg tablet 9-04 tablet by ity o f 00:00: mouth (two) Medical times Branch daily as needed for Anxiety or Agitation. LORazepam 1 Yes [id number] 1mg Take 1 [facility] mg tablet 9-04 tablet by ity o f 00:00: mouth 2 (two) Medical times Branch daily as needed for Anxiety or Agitation. LORazepam 1 Yes [id number] 1mg Take 1 [facility] mg tablet 9-04 tablet by ity o f 00:00: mouth (two) Medical times Branch daily as needed for Anxiety or Agitation. LORazepam 1 Yes [id number] 1mg Take 1 [facility] mg tablet 9-04 tablet by ity o f 00:00: mouth (two) Medical times Branch daily as needed for Anxiety or Agitation. LORazepam 1 Yes [id number] 1mg Take 1 [facility] mg tablet 9-04 tablet by ity o f 00:00: mouth (two) Medical times Branch daily as needed for Anxiety or Agitation. LORazepam 1 Yes [id number] 1mg Take 1 [facility] mg tablet 9-04 tablet by ity o f 00:00: mouth (two) Medical times Branch daily as needed for Anxiety or Agitation. LORazepam 1 Yes [id number] 1mg Take 1 [facility] mg tablet 9-04 tablet by ity o f 00:00: mouth (two) Medical times Branch daily as needed for Anxiety or Agitation. LORazepam 1 Yes [id number] 1mg Take 1 [facility] mg tablet 9-04 tablet by ity o f 00:00: mouth (two) Medical times Branch daily as needed for Anxiety or Agitation. LORazepam 1 Yes [id number] 1mg Take 1 [facility] mg tablet 9-04 tablet by ity o f 00:00: mouth (two) Medical times Branch daily as needed for Anxiety or Agitation. LORazepam 1 Yes [id number] 1mg Take 1 [facility] mg tablet 9-04 tablet by ity o f 00:00: mouth (two) Medical times Branch daily as needed for Anxiety or Agitation. LORazepam 1 Yes [id number] 1mg Take 1 [facility] mg tablet 9-04 tablet by ity o f 00:00: mouth 2 (two) Medical times Branch daily as needed for Anxiety or Agitation. LORazepam 1 Yes [id number] 1mg Take 1 [facility] mg tablet 9-04 tablet by ity o f 00:00: mouth 2 [place] 00 (two) Medical times Branch daily as needed for Anxiety or Agitation. LORazepam 1 Yes [id number] 1mg Take 1 [facility] mg tablet 9-04 tablet by ity o f 00:00: mouth 2 [place] 00 (two) Medical times Branch daily as needed for Anxiety or Agitation. LORazepam 1 Yes [id number] 1mg Take 1 [facility] mg tablet 9-04 tablet by ity o f 00:00: mouth 2 (two) Medical times Branch daily as needed for Anxiety or Agitation. LORazepam 1 Yes [id number] 1mg Take 1 [facility] mg tablet 9-04 tablet by ity o f 00:00: mouth 2 (two) Medical times Branch daily as needed for Anxiety or Agitation. LORazepam 1 Yes [id number] 1mg Take 1 [facility] mg tablet 9-04 tablet by ity o f 00:00: mouth 2 (two) Medical times Branch daily as needed for Anxiety or Agitation. LORazepam 1 Yes [id number] 1mg Take 1 [facility] mg tablet 9-04 tablet by ity o f 00:00: mouth 2 (two) Medical times Branch daily as needed for Anxiety or Agitation. LORazepam 1 Yes [id number] 1mg Take 1 [facility] mg tablet 9-04 tablet by ity o f 00:00: mouth 2 (two) Medical times Branch daily as needed for Anxiety or Agitation. LORazepam 1 Yes [id number] 1mg Take 1 [facility] mg tablet 9-04 tablet by ity o f 00:00: mouth 2 00 (two) Medical times Branch daily as needed for Anxiety or Agitation. LORazepam 1 Yes [id number] 1mg Take 1 [facility] mg tablet 9-04 tablet by ity o f 00:00: mouth 2 [place] 00 (two) Medical times Branch daily as needed for Anxiety or Agitation. LORazepam 1 Yes [id number] 1mg Take 1 [facility] mg tablet 9-04 tablet by ity o f 00:00: mouth 2 (two) Medical times Branch daily as needed for Anxiety or Agitation. LORazepam 1 Yes [id number] 1mg Take 1 [facility] mg tablet 9-04 tablet by ity o f 00:00: mouth 2 (two) Medical times Branch daily as needed for Anxiety or Agitation. LORazepam 1 Yes [id number] 1mg Take 1 [facility] mg tablet 9-04 tablet by ity o f 00:00: mouth 2 (two) Medical times Branch daily as needed for Anxiety or Agitation. LORazepam 1 Yes [id number] 1mg Take 1 [facility] mg tablet 9-04 tablet by ity o f 00:00: mouth (two) Medical times Branch daily as needed for Anxiety or Agitation. LORazepam 1 Yes [id number] 1mg Take 1 [facility] mg tablet 9-04 tablet by ity o f 00:00: mouth (two) Medical times Branch daily as needed for Anxiety or Agitation. LORazepam 1 Yes [id number] 1mg Take 1 [facility] mg tablet 9-04 tablet by ity o f 00:00: mouth (two) Medical times Branch daily as needed for Anxiety or Agitation. LORazepam 1 Yes [id number] 1mg Take 1 [facility] mg tablet 9-04 tablet by ity o f 00:00: mouth (two) Medical times Branch daily as needed for Anxiety or Agitation. LORazepam 1 Yes [id number] 1mg Take 1 [facility] mg tablet 9-04 tablet by ity o f 00:00: mouth (two) Medical times Branch daily as needed for Anxiety or Agitation. LORazepam 1 Yes [id number] 1mg Take 1 [facility] mg tablet 9-04 tablet by ity o f 00:00: mouth (two) Medical times Branch daily as needed for Anxiety or Agitation. LORazepam 1 Yes [id number] 1mg Take 1 [facility] mg tablet 9-04 tablet by ity o f 00:00: mouth 2 (two) Medical times Branch daily as needed for Anxiety or Agitation. LORazepam 1 Yes [id number] 1mg Take 1 [facility] mg tablet 9-04 tablet by ity o f 00:00: mouth 2 (two) Medical times Branch daily as needed for Anxiety or Agitation. LORazepam 1 Yes [id number] 1mg Take 1 [facility] mg tablet 9-04 tablet by ity o f 00:00: mouth 2 (two) Medical times Branch daily as needed for Anxiety or Agitation. LORazepam 1 Yes [id number] 1mg Take 1 [facility] mg tablet 9-04 tablet by ity o f 00:00: mouth 2 (two) Medical times Branch daily as needed for Anxiety or Agitation. LORazepam 1 Yes [id number] 1mg Take 1 [facility] mg tablet 9-04 tablet by ity o f 00:00: mouth 2 (two) Medical times Branch daily as needed for Anxiety or Agitation. LORazepam 1 Yes [id number] 1mg Take 1 [facility] mg tablet 9-04 tablet by ity o f 00:00: mouth 2 (two) Medical times Branch daily as needed for Anxiety or Agitation. LORazepam 1 Yes [id number] 1mg Take 1 [facility] mg tablet 9-04 tablet by ity o f 00:00: mouth (two) Medical times Branch daily as needed for Anxiety or Agitation. LORazepam 1 Yes [id number] 1mg Take 1 [facility] mg tablet 9-04 tablet by ity o f 00:00: mouth (two) Medical times Branch daily as needed for Anxiety or Agitation. LORazepam 1 Yes [id number] 1mg Take 1 [facility] mg tablet 9-04 tablet by ity o f 00:00: mouth 2 (two) Medical times Branch daily as needed for Anxiety or Agitation. LORazepam 1 Yes [id number] 1mg Take 1 [facility] mg tablet 9-04 tablet by ity o f 00:00: mouth 2 (two) Medical times Branch daily as needed for Anxiety or Agitation. LORazepam 1 Yes [id number] 1mg Take 1 [facility] mg tablet 9-04 tablet by ity o f 00:00: mouth 2 (two) Medical times Branch daily as needed for Anxiety or Agitation. LORazepam 1 Yes [id number] 1mg Take 1 [facility] mg tablet 9-04 tablet by ity o f 00:00: mouth 2 (two) Medical times Branch daily as needed for Anxiety or Agitation. LORazepam 1 Yes [id number] 1mg Take 1 [facility] mg tablet 9-04 tablet by ity o f 00:00: mouth 2 (two) Medical times Branch daily as needed for Anxiety or Agitation. LORazepam 1 2018- Yes [id number] 1mg Take 1 [facility] mg tablet 9-04 tablet by ity o f 00:00: mouth 2 (two) Medical times Branch daily as needed for Anxiety or Agitation. LORazepam 1 Yes [id number] 1mg Take 1 [facility] mg tablet 9-04 tablet by ity o f 00:00: mouth (two) Medical times Branch daily as needed for Anxiety or Agitation. LORazepam 1 Yes [id number] 1mg Take 1 [facility] mg tablet 9-04 tablet by ity o f 00:00: mouth (two) Medical times Branch daily as needed for Anxiety or Agitation. LORazepam 1 Yes [id number] 1mg Take 1 [facility] mg tablet 9-04 tablet by ity o f 00:00: mouth (two) Medical times Branch daily as needed for Anxiety or Agitation. LORazepam 1 Yes [id number] 1mg Take 1 [facility] mg tablet 9-04 tablet by ity o f 00:00: mouth (two) Medical times Branch daily as needed for Anxiety or Agitation. LORazepam 1 2018- Yes [id number] 1mg Take 1 [facility] mg tablet 9-04 tablet by ity o f 00:00: mouth 2 (two) Medical times Branch daily as needed for Anxiety or Agitation. acetaminoph 2018- 2019- No 1{tbl} 1 tablet, [facility] en-codeine 03-15 09-03 Oral, ity of (TYLENOL 22:45: 22:05 ONCE, 1 [place] #3) 300-30 00 :00 dose, Tue [facility] mg tablet 1 03/15/19 at [facility] tablet 1745, PUJA ondansetron 2018-0 Yes [id number] 8mg Take 1 [facility] (ZOFRAN) 8 7-19 tablet by ity of mg tablet 00:00: mouth 00 every 12 Medical (twelve) Branch hours. traMADol 50 2019-0 Yes 1-2 po q Un [place] mg tablet 7-19 4-6 prn ity of 00:00: pain Medical Branch ondansetron 2018-0 Yes [id number] 8mg Take 1 [facility] (ZOFRAN) 8 7-19 tablet by ity of mg tablet 00:00: mouth [place] 00 every 12 Medical (twelve) Branch hours. traMADol 50 2019-0 Yes 1-2 po q [facility] [place] mg tablet 7-19 4-6 prn ity of 00:00: pain [place] [facility] ondansetron 2019-0 Yes [id number] 8mg Take 1 [facility] (ZOFRAN) 8 7-19 tablet by ity of mg tablet 00:00: mouth [place] 00 every 12 Medical (twelve) Branch hours. traMADol 50 2019-0 Yes 1-2 po q [facility] [place] mg tablet 7-19 4-6 prn ity of 00:00: pain [place] [facility] ondansetron 2019-0 Yes [id number] 8mg Take 1 [facility] (ZOFRAN) 8 7-19 tablet by ity of mg tablet 00:00: mouth [place] 00 every 12 Medical (twelve) Branch hours. traMADol 50 2019-0 Yes 1-2 po q [facility] [place] mg tablet 7-19 4-6 prn ity of 00:00: pain [place] [facility] ondansetron 2019-0 Yes [id number] 8mg Take 1 [facility] (ZOFRAN) 8 7-19 tablet by ity of mg tablet 00:00: mouth [place] 00 every 12 Medical (twelve) Branch hours. traMADol 50 2019-0 Yes 1-2 po q [facility] [place] mg tablet 7-19 4-6 prn ity of 00:00: pain [place] [facility] ondansetron 2019-0 Yes [id number] 8mg Take 1 [facility] (ZOFRAN) 8 7-19 tablet by ity of mg tablet 00:00: mouth [place] 00 every 12 Medical (twelve) Branch hours. traMADol 50 2019-0 Yes 1-2 po q [facility] [place] mg tablet 7-19 4-6 prn ity of 00:00: pain [place] [facility] ondansetron 2019-0 Yes [id number] 8mg Take 1 [facility] (ZOFRAN) 8 7-19 tablet by ity of mg tablet 00:00: mouth [place] 00 every 12 Medical (twelve) Branch hours. traMADol 50 2019-0 Yes 1-2 po q [facility] [place] mg tablet 7-19 4-6 prn ity of 00:00: pain [place] [facility] ondansetron 0 Yes [id number] 8mg Take 1 [facility] (ZOFRAN) 8 7-19 tablet by ity of mg tablet 00:00: mouth [place] 00 every 12 Medical (twelve) Branch hours. traMADol 50 2019-0 Yes 1-2 po q [facility] [place] mg tablet 7-19 4-6 prn ity of 00:00: pain [place] 00 Medical Branch ondansetron 2018-0 Yes [id number] 8mg Take 1 [facility] (ZOFRAN) 8 7-19 tablet by ity of mg tablet 00:00: mouth [place] 00 every 12 Medical (twelve) Branch hours. traMADol 50 2018-0 Yes 1-2 po q [facility] [place] mg tablet 01-28 4-6 prn ity of 00:00: pain [place] 00 Medical Branch ondansetron Yes [id number] 8mg Take 1 [facility] (ZOFRAN) 8 7-19 tablet by ity of mg tablet 00:00: mouth [place] 00 every 12 Medical (twelve) Branch hours. ondansetron Yes [id number] 8mg Take 1 [facility] (ZOFRAN) 8 7-19 tablet by ity of mg tablet 00:00: mouth [place] 00 every 12 Medical (twelve) Branch hours. traMADol 50 2018-0 Yes 1-2 po q [facility] [place] mg tablet 01-28 4-6 prn ity of 00:00: pain [place] 00 Medical Branch ondansetron 2018-0 2020- No [id number] 8mg Take 1 [facility] (ZOFRAN) 8 7-19 03-11 tablet by ity of mg tablet 00:00: 00:00 mouth [place] 00 :00 every 12 Medical (twelve) Branch hours. ondansetron 2018-0 2020- No [id number] 8mg Take 1 [facility] (ZOFRAN) 8 7-19 03-11 tablet by ity of mg tablet 00:00: 00:00 mouth [place] 00 :00 every 12 Medical (twelve) Branch hours. traMADol 50 2018-0 2020- No 1-2 po q [facility] nivers mg tablet -31 07-23 4-6 prn ity of 00:00: 00:00 pain [place] 00 :00 Medical Branch acetaminoph 2018-0 Yes [id number] 1{tbl} Take 1 [facility] en-codeine 7-15 tablet by ity of 300-15 mg 00:00: mouth [place] tablet 00 every 6 Medical (six) Branch hours as needed for Pain. acetaminoph Yes [id number] 1{tbl} Take 1 [facility] en-codeine 7-15 tablet by ity of 300-15 mg 00:00: mouth [place] tablet 00 every 6 Medical (six) Branch hours as needed for Pain. acetaminoph Yes [id number] 1{tbl} Take 1 [facility] en-codeine 7-15 tablet by ity of 300-15 mg 00:00: mouth [place] tablet 00 every 6 Medical (six) Branch hours as needed for Pain. acetaminoph Yes [id number] 1{tbl} Take 1 [facility] en-codeine 7-15 tablet by ity of 300-15 mg 00:00: mouth [place] tablet 00 every 6 Medical (six) Branch hours as needed for Pain. acetaminoph Yes [id number] 1{tbl} Take 1 [facility] en-codeine 7-15 tablet by ity of 300-15 mg 00:00: mouth [place] tablet 00 every 6 Medical (six) Branch hours as needed for Pain. acetaminoph Yes [id number] 1{tbl} Take 1 [facility] en-codeine 7-15 tablet by ity of 300-15 mg 00:00: mouth [place] tablet 00 every 6 Medical (six) Branch hours as needed for Pain. acetaminoph Yes [id number] 1{tbl} Take 1 [facility] en-codeine 7-15 tablet by ity of 300-15 mg 00:00: mouth [place] tablet 00 every 6 Medical (six) Branch hours as needed for Pain. acetaminoph Yes [id number] 1{tbl} Take 1 [facility] en-codeine 7-15 tablet by ity of 300-15 mg 00:00: mouth [place] tablet 00 every 6 Medical (six) Branch hours as needed for Pain. acetaminoph Yes [id number] 1{tbl} Take 1 [facility] en-codeine 7-15 tablet by ity of 300-15 mg 00:00: mouth [place] tablet 00 every 6 Medical (six) Branch hours as needed for Pain. acetaminoph Yes [id number] 1{tbl} Take 1 [facility] en-codeine 7-15 tablet by ity of 300-15 mg 00:00: mouth [place] tablet 00 every 6 Medical (six) Branch hours as needed for Pain. acetaminoph 2019- Yes [id number] 1{tbl} Take 1 [facility] en-codeine 7-15 tablet by ity of 300-15 mg 00:00: mouth [place] tablet 00 every 6 Medical (six) Branch hours as needed for Pain. acetaminoph 2020- No [id number] 1{tbl} Take 1 [facility] en-codeine 7-15 03-11 tablet by ity of 300-15 mg 00:00: 00:00 mouth [place] tablet 00 :00 every 6 Medical (six) Branch hours as needed for Pain. acetaminoph 2020- No [id number] 1{tbl} Take 1 [facility] en-codeine 7-15 03-11 tablet by ity of 300-15 mg 00:00: 00:00 mouth [place] tablet 00 :00 every 6 Medical (six) Branch hours as needed for Pain. valsartan [id number] Yes 80mg Take 80 mg [facility] [place] 80 mg 6-04 by mouth ity of tablet 13:13: daily. [address] valsartan 2019-0 Yes 80mg Take 80 mg [facility] [place] 80 mg 6-04 by mouth ity of tablet 13:13: daily. [address] valsartan 2019-0 Yes 80mg Take 80 mg [facility] [place] 80 mg 6-04 by mouth ity of tablet 13:13: daily. [address] valsartan 2019-0 Yes 80mg Take 80 mg [facility] [place] 80 mg 6-04 by mouth ity of tablet 13:13: daily. [address] valsartan 2019-0 Yes 80mg Take 80 mg [facility] [place] 80 mg 6-04 by mouth ity of tablet 13:13: daily. [address] valsartan 2019-0 Yes 80mg Take 80 mg [facility] [place] 80 mg 6-04 by mouth ity of tablet 13:13: daily. [address] valsartan 2019-0 Yes 80mg Take 80 mg [facility] [place] 80 mg 6-04 by mouth ity of tablet 13:13: daily. [address] valsartan 2019-0 Yes 80mg Take 80 mg [facility] [place] 80 mg 6-04 by mouth ity of tablet 13:13: daily. [place] 19 Medical Branch ticagrelor 2018-0 Yes [id number] 90mg Take 1 [facility] 90 mg 6-04 tablet by ity of tablet 00:00: mouth 2 [place] 00 (two) Medical times Branch daily. sitaGLIPtin 2019- Yes [id number] 100mg Take 1 [facility] (JANUVIA) 6-04 tablet by ity o f 100 mg 00:00: mouth [place] tablet 00 daily. Medical Branch pantoprazol Yes [id number] 40mg Take 1 [facility] e 40 mg EC 6-04 tablet by ity of tablet 00:00: mouth [place] 00 daily. Medical Branch metoprolol Yes [id number] 100mg Take 1 [facility] succinate 6-04 tablet by ity o f XL 100 mg 00:00: mouth [place] 24 hr 00 daily. Medical tablet Branch isosorbide Yes [id number] 30mg Take 1 [facility] mononitrate 6-04 tablet by ity of 30 mg 24 hr 00:00: mouth [place] tablet 00 daily. Medical Branch atorvastati 0 Yes [id number] 80mg Take 1 [facility] n 80 mg 6-04 tablet by ity of tablet 00:00: mouth at [place] 00 bedtime. Medical Branch losartan 0 Yes [id number] 100mg Take 1 [facility] [place] 100 mg 6-04 tablet by ity of tablet 00:00: mouth [place] 00 daily. Medical Branch ticagrelor Yes [id number] 90mg Take 1 [facility] 90 mg 6-04 tablet by ity of tablet 00:00: mouth 2 [place] 00 (two) Medical times Branch daily. sitaGLIPtin 2019 Yes [id number] 100mg Take 1 [facility] (JANUVIA) 6-04 tablet by ity o f 100 mg 00:00: mouth [place] tablet 00 daily. Medical Branch pantoprazol 2018- Yes [id number] 40mg Take 1 [facility] e 40 mg EC 6-04 tablet by ity of tablet 00:00: mouth [place] 00 daily. Medical Branch metoprolol Yes [id number] 100mg Take 1 [facility] succinate 6-04 tablet by ity o f XL 100 mg 00:00: mouth [place] 24 hr 00 daily. Medical tablet Branch isosorbide 2018- Yes [id number] 30mg Take 1 [facility] mononitrate 6-04 tablet by ity of 30 mg 24 hr 00:00: mouth [place] tablet 00 daily. Medical Branch atorvastati Yes [id number] 80mg Take 1 [facility] n 80 mg 6-04 tablet by ity of tablet 00:00: mouth at [place] 00 bedtime. Medical Branch losartan Yes [id number] 100mg Take 1 [facility] [place] 100 mg 6-04 tablet by ity of tablet 00:00: mouth [place] 00 daily. Medical Branch ticagrelor Yes [id number] 90mg Take 1 [facility] 90 mg 6-04 tablet by ity of tablet 00:00: mouth 2 [place] 00 (two) Medical times Branch daily. sitaGLIPtin Yes [id number] 100mg Take 1 [facility] (JANUVIA) 6-04 tablet by ity o f 100 mg 00:00: mouth [place] tablet 00 daily. Medical Branch pantoprazol Yes [id number] 40mg Take 1 [facility] e 40 mg EC 6-04 tablet by ity of tablet 00:00: mouth [place] 00 daily. Medical Branch metoprolol Yes [id number] 100mg Take 1 [facility] succinate 6-04 tablet by ity o f XL 100 mg 00:00: mouth [place] 24 hr 00 daily. Medical tablet Branch isosorbide Yes [id number] 30mg Take 1 [facility] mononitrate 6-04 tablet by ity of 30 mg 24 hr 00:00: mouth [place] tablet 00 daily. Medical Branch atorvastati Yes [id number] 80mg Take 1 [facility] n 80 mg 6-04 tablet by ity of tablet 00:00: mouth at [place] 00 bedtime. Medical Branch losartan Yes [id number] 100mg Take 1 [facility] [place] 100 mg 6-04 tablet by ity of tablet 00:00: mouth [place] 00 daily. Medical Branch ticagrelor Yes [id number] 90mg Take 1 [facility] 90 mg 6-04 tablet by ity of tablet 00:00: mouth 2 [place] 00 (two) Medical times Branch daily. sitaGLIPtin 2018- Yes [id number] 100mg Take 1 [facility] (JANUVIA) 6-04 tablet by ity o f 100 mg 00:00: mouth [place] tablet 00 daily. Medical Branch pantoprazol 2018- Yes [id number] 40mg Take 1 [facility] e 40 mg EC 6-04 tablet by ity of tablet 00:00: mouth [place] 00 daily. Medical Branch metoprolol Yes [id number] 100mg Take 1 [facility] succinate 6-04 tablet by ity o f XL 100 mg 00:00: mouth [place] 24 hr 00 daily. Medical tablet Branch isosorbide Yes [id number] 30mg Take 1 [facility] mononitrate 6-04 tablet by ity of 30 mg 24 hr 00:00: mouth [place] tablet 00 daily. Medical Branch atorvastati Yes [id number] 80mg Take 1 [facility] n 80 mg 6-04 tablet by ity of tablet 00:00: mouth at [place] 00 bedtime. Medical Branch losartan Yes [id number] 100mg Take 1 [facility] [place] 100 mg 6-04 tablet by ity of tablet 00:00: mouth [place] 00 daily. Medical Branch ticagrelor Yes [id number] 90mg Take 1 [facility] 90 mg 6-04 tablet by ity of tablet 00:00: mouth 2 [place] 00 (two) Medical times Branch daily. sitaGLIPtin Yes [id number] 100mg Take 1 [facility] (JANUVIA) 6-04 tablet by ity o f 100 mg 00:00: mouth [place] tablet 00 daily. Medical Branch pantoprazol Yes [id number] 40mg Take 1 [facility] e 40 mg EC 6-04 tablet by ity of tablet 00:00: mouth [place] 00 daily. Medical Branch metoprolol Yes [id number] 100mg Take 1 [facility] succinate 6-04 tablet by ity o f XL 100 mg 00:00: mouth [place] 24 hr 00 daily. Medical tablet Branch isosorbide Yes [id number] 30mg Take 1 [facility] mononitrate 6-04 tablet by ity of 30 mg 24 hr 00:00: mouth [place] tablet 00 daily. Medical Branch atorvastati Yes [id number] 80mg Take 1 [facility] n 80 mg 6-04 tablet by ity of tablet 00:00: mouth at [place] 00 bedtime. Medical Branch losartan Yes [id number] 100mg Take 1 [facility] [place] 100 mg 6-04 tablet by ity of tablet 00:00: mouth [place] 00 daily. Medical Branch ticagrelor Yes [id number] 90mg Take 1 [facility] 90 mg 6-04 tablet by ity of tablet 00:00: mouth 2 [place] 00 (two) Medical times Branch daily. sitaGLIPtin 2019- Yes [id number] 100mg Take 1 [facility] (JANUVIA) 6-04 tablet by ity o f 100 mg 00:00: mouth [place] tablet 00 daily. Medical Branch pantoprazol Yes [id number] 40mg Take 1 [facility] e 40 mg EC 6-04 tablet by ity of tablet 00:00: mouth [place] 00 daily. Medical Branch metoprolol Yes [id number] 100mg Take 1 [facility] succinate 6-04 tablet by ity o f XL 100 mg 00:00: mouth [place] 24 hr 00 daily. Medical tablet Branch isosorbide Yes [id number] 30mg Take 1 [facility] mononitrate 6-04 tablet by ity of 30 mg 24 hr 00:00: mouth [place] tablet 00 daily. Medical Branch atorvastati Yes [id number] 80mg Take 1 [facility] n 80 mg 6-04 tablet by ity of tablet 00:00: mouth at [place] 00 bedtime. Medical Branch losartan Yes [id number] 100mg Take 1 [facility] [place] 100 mg 6-04 tablet by ity of tablet 00:00: mouth [place] 00 daily. Medical Branch ticagrelor Yes [id number] 90mg Take 1 [facility] 90 mg 6-04 tablet by ity of tablet 00:00: mouth 2 [place] 00 (two) Medical times Branch daily. sitaGLIPtin Yes [id number] 100mg Take 1 [facility] (JANUVIA) 6-04 tablet by ity o f 100 mg 00:00: mouth [place] tablet 00 daily. Medical Branch pantoprazol Yes [id number] 40mg Take 1 [facility] e 40 mg EC 6-04 tablet by ity of tablet 00:00: mouth [place] 00 daily. Medical Branch metoprolol Yes [id number] 100mg Take 1 [facility] succinate 6-04 tablet by ity o f XL 100 mg 00:00: mouth [place] 24 hr 00 daily. Medical tablet Branch isosorbide Yes [id number] 30mg Take 1 [facility] mononitrate 6-04 tablet by ity of 30 mg 24 hr 00:00: mouth [place] tablet 00 daily. Medical Branch atorvastati Yes [id number] 80mg Take 1 [facility] n 80 mg 6-04 tablet by ity of tablet 00:00: mouth at [place] 00 bedtime. Medical Branch losartan 2019- Yes [id number] 100mg Take 1 [facility] [place] 100 mg 6-04 tablet by ity of tablet 00:00: mouth [place] 00 daily. Medical Branch ticagrelor 2019- Yes [id number] 90mg Take 1 [facility] n[facility] 90 mg 6-04 tablet by ity of tablet 00:00: mouth 2 [place] 00 (two) Medical times Branch daily. sitaGLIPtin Yes [id number] 100mg Take 1 [facility] (JANUVIA) 6-04 tablet by ity o f 100 mg 00:00: mouth [place] tablet 00 daily. Medical Branch pantoprazol Yes [id number] 40mg Take 1 [facility] e 40 mg EC 6-04 tablet by ity of tablet 00:00: mouth [place] 00 daily. Medical Branch metoprolol Yes [id number] 100mg Take 1 [facility] succinate 6-04 tablet by ity o f XL 100 mg 00:00: mouth [place] 24 hr 00 daily. Medical tablet Branch isosorbide Yes [id number] 30mg Take 1 U nivers mononitrate 6-04 tablet by ity of 30 mg 24 hr 00:00: mouth [place] tablet 00 daily. Medical Branch atorvastati Yes [id number] 80mg Take 1 [facility] n 80 mg 6-04 tablet by ity of tablet 00:00: mouth at [place] 00 bedtime. Medical Branch ticagrelor Yes [id number] 90mg Take 1 [facility] nivers 90 mg 6-04 tablet by ity of tablet 00:00: mouth 2 [place] 00 (two) Medical times Branch daily. sitaGLIPtin Yes [id number] 100mg Take 1 [facility] (JANUVIA) 6-04 tablet by ity o f 100 mg 00:00: mouth [place] tablet 00 daily. Medical Branch pantoprazol 2018- Yes [id number] 40mg Take 1 [facility] e 40 mg EC 6-04 tablet by ity of tablet 00:00: mouth [place] 00 daily. Medical Branch metoprolol Yes [id number] 100mg Take 1 [facility] succinate 6-04 tablet by ity o f XL 100 mg 00:00: mouth [place] 24 hr 00 daily. Medical tablet Branch isosorbide Yes [id number] 30mg Take 1 U nivers mononitrate 6-04 tablet by ity of 30 mg 24 hr 00:00: mouth [place] tablet 00 daily. Medical Branch atorvastati Yes [id number] 80mg Take 1 [facility] n 80 mg 6-04 tablet by ity of tablet 00:00: mouth at [place] 00 bedtime. Medical Branch ticagrelor Yes [id number] 90mg Take 1 [facility] nivers 90 mg 6-04 tablet by ity of tablet 00:00: mouth 2 [place] 00 (two) Medical times Branch daily. sitaGLIPtin Yes [id number] 100mg Take 1 [facility] (JANUVIA) 6-04 tablet by ity o f 100 mg 00:00: mouth [place] tablet 00 daily. Medical Branch pantoprazol Yes [id number] 40mg Take 1 [facility] e 40 mg EC 6-04 tablet by ity of tablet 00:00: mouth [place] 00 daily. Medical Branch metoprolol Yes [id number] 100mg Take 1 [facility] succinate 6-04 tablet by ity o f XL 100 mg 00:00: mouth [place] 24 hr 00 daily. Medical tablet Branch isosorbide Yes [id number] 30mg Take 1 U nivers mononitrate 6-04 tablet by ity of 30 mg 24 hr 00:00: mouth [place] tablet 00 daily. Medical Branch atorvastati Yes [id number] 80mg Take 1 [facility] n 80 mg 6-04 tablet by ity of tablet 00:00: mouth at [place] 00 bedtime. Medical Branch ticagrelor Yes [id number] 90mg Take 1 [facility] nivers 90 mg 6-04 tablet by ity of tablet 00:00: mouth 2 [place] 00 (two) Medical times Branch daily. sitaGLIPtin Yes [id number] 100mg Take 1 [facility] (JANUVIA) 6-04 tablet by ity o f 100 mg 00:00: mouth [place] tablet 00 daily. Medical Branch pantoprazol Yes [id number] 40mg Take 1 [facility] e 40 mg EC 6-04 tablet by ity of tablet 00:00: mouth [place] 00 daily. Medical Branch metoprolol Yes [id number] 100mg Take 1 [facility] succinate 6-04 tablet by ity o f XL 100 mg 00:00: mouth [place] 24 hr 00 daily. Medical tablet Branch isosorbide Yes [id number] 30mg Take 1 U nivers mononitrate 6-04 tablet by ity of 30 mg 24 hr 00:00: mouth [place] tablet 00 daily. Medical Branch atorvastati Yes [id number] 80mg Take 1 [facility] n 80 mg 6-04 tablet by ity of tablet 00:00: mouth at [place] 00 bedtime. Medical Branch ticagrelor 2019- Yes [id number] 90mg Take 1 [facility] nivers 90 mg 6-04 tablet by ity of tablet 00:00: mouth 2 [place] 00 (two) Medical times Branch daily. sitaGLIPtin Yes [id number] 100mg Take 1 [facility] (JANUVIA) 6-04 tablet by ity o f 100 mg 00:00: mouth [place] tablet 00 daily. Medical Branch pantoprazol Yes [id number] 40mg Take 1 [facility] e 40 mg EC 6-04 tablet by ity of tablet 00:00: mouth [place] 00 daily. Medical Branch metoprolol Yes [id number] 100mg Take 1 [facility] succinate 6-04 tablet by ity o f XL 100 mg 00:00: mouth [place] 24 hr 00 daily. Medical tablet Branch isosorbide Yes [id number] 30mg Take 1 U nivers mononitrate 6-04 tablet by ity of 30 mg 24 hr 00:00: mouth [place] tablet 00 daily. Medical Branch atorvastati Yes [id number] 80mg Take 1 [facility] n 80 mg 6-04 tablet by ity of tablet 00:00: mouth at [place] 00 bedtime. Medical Branch ticagrelor Yes [id number] 90mg Take 1 [facility] nivers 90 mg 6-04 tablet by ity of tablet 00:00: mouth 2 [place] 00 (two) Medical times Branch daily. sitaGLIPtin 2019- Yes [id number] 100mg Take 1 [facility] (JANUVIA) 6-04 tablet by ity o f 100 mg 00:00: mouth [place] tablet 00 daily. Medical Branch pantoprazol Yes [id number] 40mg Take 1 [facility] e 40 mg EC 6-04 tablet by ity of tablet 00:00: mouth [place] 00 daily. Medical Branch metoprolol Yes [id number] 100mg Take 1 [facility] succinate 6-04 tablet by ity o f XL 100 mg 00:00: mouth [place] 24 hr 00 daily. Medical tablet Branch isosorbide 2019-0 Yes [id number] 30mg Take 1 [facility] nivers mononitrate 6-04 tablet by ity of 30 mg 24 hr 00:00: mouth [place] tablet 00 daily. Medical Branch atorvastati 0 Yes [id number] 80mg Take 1 [facility] n 80 mg 6-04 tablet by ity of tablet 00:00: mouth at [place] 00 bedtime. Medical Branch ticagrelor 2018- Yes [id number] 90mg Take 1 [facility] nivers 90 mg 6-04 tablet by ity of tablet 00:00: mouth 2 [place] 00 (two) Medical times Branch daily. sitaGLIPtin Yes [id number] 100mg Take 1 [facility] (JANUVIA) 6-04 tablet by ity o f 100 mg 00:00: mouth [place] tablet 00 daily. Medical Branch pantoprazol Yes [id number] 40mg Take 1 [facility] e 40 mg EC 6-04 tablet by ity of tablet 00:00: mouth [place] 00 daily. Medical Branch metoprolol Yes [id number] 100mg Take 1 [facility] succinate 6-04 tablet by ity o f XL 100 mg 00:00: mouth [place] 24 hr 00 daily. Medical tablet Branch isosorbide Yes [id number] 30mg Take 1 [facility] nivers mononitrate 6-04 tablet by ity of 30 mg 24 hr 00:00: mouth [place] tablet 00 daily. Medical Branch atorvastati Yes [id number] 80mg Take 1 [facility] n 80 mg 6-04 tablet by ity of tablet 00:00: mouth at [place] 00 bedtime. Medical Branch ticagrelor 0 Yes [id number] 90mg Take 1 [facility] 90 mg 6-04 tablet by ity of tablet 00:00: mouth 2 [place] 00 (two) Medical times Branch daily. sitaGLIPtin 2019- Yes [id number] 100mg Take 1 [facility] (JANUVIA) 6-04 tablet by ity o f 100 mg 00:00: mouth [place] tablet 00 daily. Medical Branch pantoprazol Yes [id number] 40mg Take 1 [facility] e 40 mg EC 6-04 tablet by ity of tablet 00:00: mouth [place] 00 daily. Medical Branch metoprolol Yes [id number] 100mg Take 1 [facility] succinate 6-04 tablet by ity o f XL 100 mg 00:00: mouth [place] 24 hr 00 daily. Medical tablet Branch isosorbide Yes [id number] 30mg Take 1 [facility] mononitrate 6-04 tablet by ity of 30 mg 24 hr 00:00: mouth [place] tablet 00 daily. Medical Branch atorvastati Yes [id number] 80mg Take 1 [facility] n 80 mg 6-04 tablet by ity of tablet 00:00: mouth at [place] 00 bedtime. Medical Branch losartan Yes [id number] 100mg Take 1 [facility] [place] 100 mg 6-04 tablet by ity of tablet 00:00: mouth [place] 00 daily. Medical Branch ticagrelor 2020- No [id number] 90mg Take 1 [facility] 90 mg 6-04 06-04 tablet by ity of tablet 00:00: 00:00 mouth 2 [place] 00 :00 (two) Medical times Branch daily. sitaGLIPtin 2020- No [id number] 100mg Take 1 [facility] (JANUVIA) 6-04 06-04 tablet by ity of 100 mg 00:00: 00:00 mouth [place] tablet 00 :00 daily. Medical Branch pantoprazol 2020- No [id number] 40mg Take 1 [facility] e 40 mg EC 6-04 06-04 tablet by ity of tablet 00:00: 00:00 mouth [place] 00 :00 daily. Medical Branch metoprolol 2020- No [id number] 100mg Take 1 [facility] succinate 6-04 06-04 tablet by ity of XL 100 mg 00:00: 00:00 mouth [place] 24 hr 00 :00 daily. Medical tablet Branch isosorbide 2020- No [id number] 30mg Take 1 [facility] mononitrate 6-04 06-04 tablet by it y of 30 mg 24 hr 00:00: 00:00 mouth [place] tablet 00 :00 daily. [facility] Branch atorvastati 2020- No [id number] 80mg Take 1 [facility] n 80 mg 6-04 06-04 tablet by ity of tablet 00:00: 00:00 mouth at [place] 00 :00 bedtime. Medical Branch ONETOUCH Yes Use as [facility] VERIO strip 4-15 directed, ity of 00:00: TID, [place] 00 [id number] Medical Branch ONETOUCH 2019-0 Yes Use as [facility] VERIO strip 4-15 directed, ity of 00:00: TID, [place] 00 DX:[id number] [facility] 2019-0 Yes Use as [facility] VERIO strip 4-15 directed, ity of 00:00: TID, [place] 00 DX:[email or web address] [facility] Yes Use as [facility] VERIO strip 4-15 directed, ity of 00:00: TID, [place] 00 DX:[email or web address] [facility] 2019-0 Yes Use as [facility] VERIO strip 4-15 directed, ity of 00:00: TID, [place] 00 DX:[email or web address] [facility] 2019-0 Yes Use as [facility] VERIO strip 4-15 directed, ity of 00:00: TID, [place] 00 DX:[email or web address] [facility] 2019-0 Yes Use as [facility] VERIO strip 4-15 directed, ity of 00:00: TID, [place] 00 DX:[email or web address] Medical Branch [facility] 2018-0 Yes Use as [facility] VERIO strip 4-15 directed, ity of 00:00: TID, [place] 00 DX:[email or web address] Medical Branch aspirin 81 2017-07- No 81mg Take 1 [facility] ers mg chewable 2-27 12-28 tablet by it y of tablet 00:00: 05:59 mouth [place] 00 :00 daily. Medical Branch aspirin 81 2017-07- No 81mg Take 1 [facility] ers mg chewable 2-27 12-28 tablet by it y of tablet 00:00: 05:59 mouth [place] 00 :00 daily. Medical Branch aspirin 81 2017-07- No 81mg Take 1 [facility] ers mg chewable 2-27 12-28 tablet by it y of tablet 00:00: 05:59 mouth [place] 00 :00 daily. Medical Branch aspirin 81 2017-07- No 81mg Take 1 [facility] ers mg chewable 2-27 12-28 tablet by it y of tablet 00:00: 05:59 mouth [place] 00 :00 daily. Medical Branch aspirin 81 2017-07- No 81mg Take 1 [facility] ers mg chewable 2-27 12-28 tablet by it y of tablet 00:00: 05:59 mouth [place] 00 :00 daily. Medical Branch aspirin 81 2017-07- No 81mg Take 1 [facility] ers mg chewable 2-27 12-28 tablet by it y of tablet 00:00: 05:59 mouth [place] 00 :00 daily. Medical Branch aspirin 81 2017-07- No 81mg Take 1 [facility] ers mg chewable 2-27 12-28 tablet by it y of tablet 00:00: 05:59 mouth [place] 00 :00 daily. Medical Branch aspirin 81 2017-07 2019- No 81mg Take 1 [facility] ers mg chewable 2-27 12-28 tablet by it y of tablet 00:00: 05:59 mouth [place] 00 :00 daily. Medical Branch Diazepam 5 2017- Yes 5 mg = 1 [facility] MG Oral 4-28 tab, PO, l Tablet 18:29: QID, PRN [place] [Valium] 00 Shoulder pain, X 7 day, # 10 tab, 0 Refill(s) Diazepam 5 2017 Yes 5 mg = 1 [facility] MG Oral 4-28 tab, PO, l Tablet 18:29: QID, PRN [place] [Valium] 00 Shoulder pain, X 7 day, # 10 tab, 0 Refill(s) ibuprofen Yes 600 mg = 1 Me [facility] 600 mg oral 4-28 tab, PO, l tablet 18:28: Q6H, PRN [place] 00 Pain, take with food, X 10 day, # 40 tab, 0 Refill(s) ibuprofen Yes 600 mg = 1 Me [place] 600 mg oral 4-28 tab, PO, l tablet 18:28: Q6H, PRN [place] 00 Pain, take with food, X 10 day, # 40 tab, 0 Refill(s) Valium No Notes: [facility] 4-28 (Same as: l 17:30: Valium) [place] 00 Ibuprofen No Notes: Memori a 4-28 (Same as: l 17:30: Motrin) [place] 00 "Do Not Crush" Take with food. Valium No Notes: Memoria 4-28 (Same as: l 17:30: Valium) [place] 00 Ibuprofen No Notes: [facility] a 4-28 (Same as: l 17:30: Motrin) [place] 00 "Do Not Crush" Take with food. Immunizations Ordered Filled Immunization Date Status Comments [facility] e Immunization Name Name SARS-COV-2 COVID-19 2021-07-03 Completed [facility] PFIZER VACCINE 00:00:00 [facility] SARS-COV-2 COVID-19 2021-07-03 Completed [facility] PFIZER VACCINE 00:00:00 [facility] SARS-COV-2 COVID-19 2021-07-03 Completed [facility] PFIZER VACCINE 00:00:00 [facility] SARS-COV-2 COVID-19 2021-07-03 Completed [facility] PFIZER VACCINE 00:00:00 [facility] SARS-COV-2 COVID-19 2021-07-03 Completed [facility] PFIZER VACCINE 00:00:00 [facility] SARS-COV-2 COVID-19 2021-07-03 Completed [facility] PFIZER VACCINE 00:00:00 [facility] SARS-COV-2 COVID-19 2021-07-03 Completed [facility] PFIZER VACCINE 00:00:00 [facility] SARS-COV-2 COVID-19 2021-07-03 Completed [facility] PFIZER VACCINE 00:00:00 [facility] SARS-COV-2 COVID-19 2021-07-03 Completed [facility] PFIZER VACCINE 00:00:00 [facility] SARS-COV-2 COVID-19 2021-07-03 Completed [facility] PFIZER VACCINE 00:00:00 [facility] SARS-COV-2 COVID-19 2021-07-03 Completed [facility] PFIZER VACCINE 00:00:00 [facility] SARS-COV-2 COVID-19 2021-07-03 Completed [facility] PFIZER VACCINE 00:00:00 [facility] SARS-COV-2 COVID-19 2021-07-03 Completed [facility] PFIZER VACCINE 00:00:00 [facility] SARS-COV-2 COVID-19 2021-07-03 Completed [facility] PFIZER VACCINE 00:00:00 [facility] SARS-COV-2 COVID-19 2021-07-03 Completed [facility] PFIZER VACCINE 00:00:00 [facility] SARS-COV-2 COVID-19 2021-07-03 Completed [facility] PFIZER VACCINE 00:00:00 [facility] SARS-COV-2 COVID-19 2021-07-03 Completed [facility] PFIZER VACCINE 00:00:00 [facility] SARS-COV-2 COVID-19 2021-07-03 Completed [facility] PFIZER VACCINE 00:00:00 [facility] SARS-COV-2 COVID-19 2021-07-03 Completed [facility] PFIZER VACCINE 00:00:00 [facility] SARS-COV-2 COVID-19 2021-07-03 Completed [facility] PFIZER VACCINE 00:00:00 [facility] SARS-COV-2 COVID-19 2021-07-03 Completed [facility] PFIZER VACCINE 00:00:00 [facility] SARS-COV-2 COVID-19 2021-07-03 Completed [facility] PFIZER VACCINE 00:00:00 [facility] SARS-COV-2 COVID-19 2021-07-03 Completed [facility] PFIZER VACCINE 00:00:00 [facility] SARS-COV-2 COVID-19 2021-07-03 Completed [facility] PFIZER VACCINE 00:00:00 [facility] SARS-COV-2 COVID-19 2020-09-25 Completed [facility] PFIZER VACCINE 00:00:00 [facility] SARS-COV-2 COVID-19 2020-09-25 Completed [facility] PFIZER VACCINE 00:00:00 [facility] SARS-COV-2 COVID-19 2020-09-25 Completed [facility] PFIZER VACCINE 00:00:00 [facility] SARS-COV-2 COVID-19 2020-09-25 Completed [facility] PFIZER VACCINE 00:00:00 [facility] SARS-COV-2 COVID-19 2020-09-25 Completed [facility] PFIZER VACCINE 00:00:00 [facility] SARS-COV-2 COVID-19 2020-09-25 Completed [facility] PFIZER VACCINE 00:00:00 [facility] SARS-COV-2 COVID-19 2020-09-25 Completed [facility] PFIZER VACCINE 00:00:00 [facility] SARS-COV-2 COVID-19 2020-09-25 Completed [facility] PFIZER VACCINE 00:00:00 [facility] SARS-COV-2 COVID-19 2020-09-25 Completed [facility] PFIZER VACCINE 00:00:00 [facility] SARS-COV-2 COVID-19 2020-09-25 Completed [facility] PFIZER VACCINE 00:00:00 [facility] SARS-COV-2 COVID-19 2020-09-25 Completed [facility] PFIZER VACCINE 00:00:00 [facility] SARS-COV-2 COVID-19 2020-09-25 Completed [facility] PFIZER VACCINE 00:00:00 [facility] SARS-COV-2 COVID-19 2020-09-25 Completed [facility] PFIZER VACCINE 00:00:00 [facility] SARS-COV-2 COVID-19 2020-09-25 Completed [facility] PFIZER VACCINE 00:00:00 [facility] SARS-COV-2 COVID-19 2020-09-25 Completed [facility] PFIZER VACCINE 00:00:00 [facility] SARS-COV-2 COVID-19 2020-09-25 Completed [facility] PFIZER VACCINE 00:00:00 [facility] SARS-COV-2 COVID-19 2020-09-25 Completed [facility] PFIZER VACCINE 00:00:00 [facility] SARS-COV-2 COVID-19 2020-09-25 Completed [facility] PFIZER VACCINE 00:00:00 [facility] SARS-COV-2 COVID-19 2020-09-25 Completed [facility] PFIZER VACCINE 00:00:00 [facility] SARS-COV-2 COVID-19 2020-09-25 Completed [facility] PFIZER VACCINE 00:00:00 [facility] SARS-COV-2 COVID-19 2020-09-25 Completed [facility] PFIZER VACCINE 00:00:00 [facility] SARS-COV-2 COVID-19 2020-09-25 Completed [facility] PFIZER VACCINE 00:00:00 [facility] SARS-COV-2 COVID-19 2020-09-25 Completed [facility] PFIZER VACCINE 00:00:00 [facility] SARS-COV-2 COVID-19 2020-09-25 Completed [facility] PFIZER VACCINE 00:00:00 [facility] SARS-COV-2 COVID-19 2020-09-25 Completed [facility] PFIZER VACCINE 00:00:[address] [facility] SARS-COV-2 COVID-19 2020-09-25 Completed [facility] PFIZER VACCINE 00:00:00 [facility] SARS-COV-2 COVID-19 2020-09-25 Completed [facility] PFIZER VACCINE 00:00:00 [facility] SARS-COV-2 COVID-19 2020-09-25 Completed [facility] PFIZER VACCINE 00:00:00 [facility] SARS-COV-2 COVID-19 2020-09-25 Completed [facility] PFIZER VACCINE 00:00:00 [facility] SARS-COV-2 COVID-19 2020-09-25 Completed [facility] PFIZER VACCINE 00:00:00 [facility] SARS-COV-2 COVID-19 2020-09-25 Completed [facility] PFIZER VACCINE 00:00:00 [facility] SARS-COV-2 COVID-19 2020-09-25 Completed [facility] PFIZER VACCINE 00:00:00 [facility] SARS-COV-2 COVID-19 2020-09-25 Completed [facility] PFIZER VACCINE 00:00:00 [facility] SARS-COV-2 COVID-19 2020-09-25 Completed [facility] PFIZER VACCINE 00:00:00 [facility] SARS-COV-2 COVID-19 2020-09-25 Completed [facility] PFIZER VACCINE 00:00:00 [facility] SARS-COV-2 COVID-19 2020-09-25 Completed [facility] PFIZER VACCINE 00:00:00 [facility] SARS-COV-2 COVID-19 2020-09-25 Completed [facility] PFIZER VACCINE 00:00:00 [facility] SARS-COV-2 COVID-19 2020-09-25 Completed [facility] PFIZER VACCINE 00:00:00 [facility] SARS-COV-2 COVID-19 2020-09-25 Completed [facility] PFIZER VACCINE 00:00:00 [facility] SARS-COV-2 COVID-19 2020-09-25 Completed [facility] PFIZER VACCINE 00:00:00 [facility] SARS-COV-2 COVID-19 2020-09-25 Completed [facility] PFIZER VACCINE 00:00:00 [facility] SARS-COV-2 COVID-19 2020-09-25 Completed [facility] PFIZER VACCINE 00:00:00 [facility] SARS-COV-2 COVID-19 2020-09-25 Completed [facility] PFIZER VACCINE 00:00:00 [facility] SARS-COV-2 COVID-19 2020-09-25 Completed [facility] PFIZER VACCINE 00:00:00 [facility] SARS-COV-2 COVID-19 2020-09-25 Completed [facility] PFIZER VACCINE 00:00:00 [facility] SARS-COV-2 COVID-19 2020-09-25 Completed [facility] PFIZER VACCINE 00:00:00 [facility] SARS-COV-2 COVID-19 2020-09-25 Completed [facility] PFIZER VACCINE 00:00:00 [facility] SARS-COV-2 COVID-19 2020-09-25 Completed [facility] PFIZER VACCINE 00:00:00 [facility] SARS-COV-2 COVID-19 2020-09-25 Completed [facility] PFIZER VACCINE 00:00:00 [facility] SARS-COV-2 COVID-19 2020-09-25 Completed [facility] PFIZER VACCINE 00:00:00 [facility] SARS-COV-2 COVID-19 2020-09-25 Completed [facility] PFIZER VACCINE 00:00:00 [facility] SARS-COV-2 COVID-19 2020-09-04 Completed [facility] PFIZER VACCINE 00:00:00 [facility] SARS-COV-2 COVID-19 2020-09-04 Completed [facility] PFIZER VACCINE 00:00:00 [facility] SARS-COV-2 COVID-19 2020-09-04 Completed [facility] PFIZER VACCINE 00:00:00 [facility] SARS-COV-2 COVID-19 2020-09-04 Completed [facility] PFIZER VACCINE 00:00:00 [facility] SARS-COV-2 COVID-19 2020-09-04 Completed [facility] PFIZER VACCINE 00:00:00 [facility] SARS-COV-2 COVID-19 2020-09-04 Completed [facility] PFIZER VACCINE 00:00:00 [facility] SARS-COV-2 COVID-19 2020-09-04 Completed [facility] PFIZER VACCINE 00:00:00 [facility] SARS-COV-2 COVID-19 2020-09-04 Completed [facility] PFIZER VACCINE 00:00:00 [facility] SARS-COV-2 COVID-19 2020-09-04 Completed [facility] PFIZER VACCINE 00:00:00 [facility] SARS-COV-2 COVID-19 2020-09-04 Completed [facility] PFIZER VACCINE 00:00:00 [facility] SARS-COV-2 COVID-19 2020-09-04 Completed [facility] PFIZER VACCINE 00:00:00 [facility] SARS-COV-2 COVID-19 2020-09-04 Completed [facility] PFIZER VACCINE 00:00:00 [facility] SARS-COV-2 COVID-19 2020-09-04 Completed [facility] PFIZER VACCINE 00:00:00 [facility] SARS-COV-2 COVID-19 2020-09-04 Completed [facility] PFIZER VACCINE 00:00:00 [facility] SARS-COV-2 COVID-19 2020-09-04 Completed [facility] PFIZER VACCINE 00:00:00 [facility] SARS-COV-2 COVID-19 2020-09-04 Completed [facility] PFIZER VACCINE 00:00:00 [facility] SARS-COV-2 COVID-19 2020-09-04 Completed [facility] PFIZER VACCINE 00:00:00 [facility] SARS-COV-2 COVID-19 2020-09-04 Completed [facility] PFIZER VACCINE 00:00:00 [facility] SARS-COV-2 COVID-19 2020-09-04 Completed [facility] PFIZER VACCINE 00:00:00 [facility] SARS-COV-2 COVID-19 2020-09-04 Completed [facility] PFIZER VACCINE 00:00:00 [facility] SARS-COV-2 COVID-19 2020-09-04 Completed [facility] PFIZER VACCINE 00:00:00 [facility] SARS-COV-2 COVID-19 2020-09-04 Completed [facility] PFIZER VACCINE 00:00:00 [facility] SARS-COV-2 COVID-19 2020-09-04 Completed [facility] PFIZER VACCINE 00:00:00 [facility] SARS-COV-2 COVID-19 2020-09-04 Completed [facility] PFIZER VACCINE 00:00:00 [facility] SARS-COV-2 COVID-19 2020-09-04 Completed [facility] PFIZER VACCINE 00:00:00 [facility] SARS-COV-2 COVID-19 2020-09-04 Completed [facility] PFIZER VACCINE 00:00:00 [facility] SARS-COV-2 COVID-19 2020-09-04 Completed [facility] PFIZER VACCINE 00:00:00 [facility] SARS-COV-2 COVID-19 2020-09-04 Completed [facility] PFIZER VACCINE 00:00:00 [facility] SARS-COV-2 COVID-19 2020-09-04 Completed [facility] PFIZER VACCINE 00:00:00 [facility] SARS-COV-2 COVID-19 2020-09-04 Completed [facility] PFIZER VACCINE 00:00:00 [facility] SARS-COV-2 COVID-19 2020-09-04 Completed [facility] PFIZER VACCINE 00:00:00 [facility] SARS-COV-2 COVID-19 2020-09-04 Completed [facility] PFIZER VACCINE 00:00:00 [facility] SARS-COV-2 COVID-19 2020-09-04 Completed [facility] PFIZER VACCINE 00:00:00 [facility] SARS-COV-2 COVID-19 2020-09-04 Completed [facility] PFIZER VACCINE 00:00:00 [facility] SARS-COV-2 COVID-19 2020-09-04 Completed [facility] PFIZER VACCINE 00:00:00 [facility] SARS-COV-2 COVID-19 2020-09-04 Completed [facility] PFIZER VACCINE 00:00:00 [facility] SARS-COV-2 COVID-19 2020-09-04 Completed [facility] PFIZER VACCINE 00:00:00 [facility] SARS-COV-2 COVID-19 2020-09-04 Completed [facility] PFIZER VACCINE 00:00:00 [facility] SARS-COV-2 COVID-19 2020-09-04 Completed [facility] PFIZER VACCINE 00:00:00 [facility] SARS-COV-2 COVID-19 2020-09-04 Completed [facility] PFIZER VACCINE 00:00:00 [facility] SARS-COV-2 COVID-19 2020-09-04 Completed [facility] PFIZER VACCINE 00:00:00 [facility] SARS-COV-2 COVID-19 2020-09-04 Completed [facility] PFIZER VACCINE 00:00:00 [facility] SARS-COV-2 COVID-19 2020-09-04 Completed [facility] PFIZER VACCINE 00:00:00 [facility] SARS-COV-2 COVID-19 2020-09-04 Completed [facility] PFIZER VACCINE 00:00:00 [facility] SARS-COV-2 COVID-19 2020-09-04 Completed [facility] PFIZER VACCINE 00:00:00 [facility] SARS-COV-2 COVID-19 2020-09-04 Completed [facility] PFIZER VACCINE 00:00:00 [facility] SARS-COV-2 COVID-19 2020-09-04 Completed [facility] PFIZER VACCINE 00:00:00 [facility] SARS-COV-2 COVID-19 2020-09-04 Completed [facility] PFIZER VACCINE 00:00:00 [facility] SARS-COV-2 COVID-19 2020-09-04 Completed [facility] PFIZER VACCINE 00:00:00 [facility] SARS-COV-2 COVID-19 2020-09-04 Completed [facility] PFIZER VACCINE 00:00:00 [facility] SARS-COV-2 COVID-19 2020-09-04 Completed [facility] PFIZER VACCINE 00:00:00 [facility] SARS-COV-2 COVID-19 2020-09-04 Completed [facility] PFIZER VACCINE 00:00:00 [facility] SARS-COV-2 COVID-19 2020-09-04 Completed [facility] PFIZER VACCINE 00:00:00 [facility] SARS-COV-2 COVID-19 2020-09-04 Completed [facility] PFIZER VACCINE 00:00:00 [facility] Hep B, Adol or Pedi 2020-08-24 Completed [facility] Dosage 00:00:00 [facility] Hep B, Adol or Pedi 2020-08-24 Completed [facility] Dosage 00:00:00 [facility] Hep B, Adol or Pedi 2020-08-24 Completed [facility] Dosage 00:00:00 [facility] Hep B, Adol or Pedi 2020-08-24 Completed [facility] Dosage 00:00:00 [facility] Hep B, Adol or Pedi 2020-08-24 Completed [facility] Dosage 00:00:00 [facility] Hep B, Adol or Pedi 2020-08-24 Completed [facility] Dosage 00:00:00 [facility] Hep B, Adol or Pedi 2020-08-24 Completed [facility] Dosage 00:00:00 [facility] Hep B, Adol or Pedi 2020-08-24 Completed [facility] Dosage 00:00:00 [facility] Hep B, Adol or Pedi 2020-08-24 Completed [facility] Dosage 00:00:00 [facility] Hep B, Adol or Pedi 2020-08-24 Completed [facility] Dosage 00:00:00 [facility] Hep B, Adol or Pedi 2020-08-24 Completed [facility] Dosage 00:00:00 [facility] Hep B, Adol or Pedi 2020-08-24 Completed [facility] Dosage 00:00:00 [facility] Hep B, Adol or Pedi 2020-08-24 Completed [facility] Dosage 00:00:00 [facility] Hep B, Adol or Pedi 2020-08-24 Completed [facility] Dosage 00:00:00 [facility] Hep B, Adol or Pedi 2020-08-24 Completed [facility] Dosage 00:00:00 [facility] Hep B, Adol or Pedi 2020-08-24 Completed [facility] Dosage 00:00:00 [facility] Hep B, Adol or Pedi 2020-08-24 Completed [facility] Dosage 00:00:00 [facility] Hep B, Adol or Pedi 2020-08-24 Completed [facility] Dosage 00:00:00 [facility] Hep B, Adol or Pedi 2020-08-24 Completed [facility] Dosage 00:00:00 [facility] Hep B, Adol or Pedi 2020-08-24 Completed [facility] Dosage 00:00:00 [facility] Hep B, Adol or Pedi 2020-08-24 Completed [facility] Dosage 00:00:00 [facility] Hep B, Adol or Pedi 2020-08-24 Completed [facility] Dosage 00:00:00 [facility] Hep B, Adol or Pedi 2020-08-24 Completed [facility] Dosage 00:00:00 [facility] Hep B, Adol or Pedi 2020-08-24 Completed [facility] Dosage 00:00:00 [facility] Hep B, Adol or Pedi 2020-08-24 Completed [facility] Dosage 00:00:00 [facility] Hep B, Adol or Pedi 2020-08-24 Completed [facility] Dosage 00:00:00 [facility] Hep B, Adol or Pedi 2020-08-24 Completed [facility] Dosage 00:00:00 [facility] Hep B, Adol or Pedi 2020-08-24 Completed [facility] Dosage 00:00:00 [facility] Hep B, Adol or Pedi 2020-08-24 Completed [facility] Dosage 00:00:00 [facility] Hep B, Adol or Pedi 2020-08-24 Completed [facility] Dosage 00:00:00 [facility] Hep B, Adol or Pedi 2020-08-24 Completed [facility] Dosage 00:00:00 [facility] Hep B, Adol or Pedi 2020-08-24 Completed [facility] Dosage 00:00:00 [facility] Hep B, Adol or Pedi 2020-08-24 Completed [facility] Dosage 00:00:00 [facility] Hep B, Adol or Pedi 2020-08-24 Completed [facility] Dosage 00:00:00 [facility] Hep B, Adol or Pedi 2020-08-24 Completed [facility] Dosage 00:00:00 [facility] Hep B, Adol or Pedi 2020-08-24 Completed [facility] Dosage 00:00:00 [facility] Hep B, Adol or Pedi 2020-08-24 Completed [facility] Dosage 00:00:00 [facility] Hep B, Adol or Pedi 2020-08-24 Completed [facility] Dosage 00:00:00 [facility] Hep B, Adol or Pedi 2020-08-24 Completed [facility] Dosage 00:00:00 [facility] Hep B, Adol or Pedi 2020-08-24 Completed [facility] Dosage 00:00:00 [facility] Hep B, Adol or Pedi 2020-08-24 Completed [facility] Dosage 00:00:00 [facility] Hep B, Adol or Pedi 2020-08-24 Completed [facility] Dosage 00:00:00 [facility] Hep B, Adol or Pedi 2020-08-24 Completed [facility] Dosage 00:00:00 [facility] Hep B, Adol or Pedi 2020-08-24 Completed [facility] Dosage 00:00:00 [facility] Hep B, Adol or Pedi 2020-08-24 Completed [facility] Dosage 00:00:00 [facility] Hep B, Adol or Pedi 2020-08-24 Completed [facility] Dosage 00:00:00 [facility] Hep B, Adol or Pedi 2020-08-24 Completed [facility] Dosage 00:00:00 [facility] Hep B, Adol or Pedi 2020-08-24 Completed [facility] Dosage 00:00:00 [facility] Hep B, Adol or Pedi 2020-08-24 Completed [facility] Dosage 00:00:00 [facility] Hep B, Adol or Pedi 2020-08-24 Completed [facility] Dosage 00:00:00 [facility] Hep B, Adol or Pedi 2020-08-24 Completed [facility] Dosage 00:00:00 [facility] Hep B, Adol or Pedi 2020-08-24 Completed [facility] Dosage 00:00:00 [facility] Hep B, Adol or Pedi 2020-08-24 Completed [facility] Dosage 00:00:00 [facility] Influenza Virus 2019-06-15 Completed [facility] .5 [facility] 00:00:00 [facility] Influenza Virus 2019-06-15 Completed [facility] .5 mL 00:00:00 [facility] Influenza Virus 2019-06-15 Completed [facility] .5 mL 00:00:00 [facility] Influenza Virus 2019-06-15 Completed [facility] .5 mL 00:00:00 [facility] Influenza Virus 2019-06-15 Completed [facility] .5 mL 00:00:00 [facility] Influenza Virus 2019-06-15 Completed [facility] .5 mL 00:00:00 [facility] Influenza Virus 2019-06-15 Completed [facility] .5 mL 00:00:00 [facility] Influenza Virus 2019-06-15 Completed [facility] .5 mL 00:00:00 [facility] Influenza Virus 2019-06-15 Completed [facility] .5 mL 00:00:00 [facility] Influenza Virus 2019-06-15 Completed [facility] .5 mL 00:00:00 [facility] Influenza Virus 2019-06-15 Completed [facility] .5 mL 00:00:00 [facility] Influenza Virus 2019-06-15 Completed [facility] .5 mL 00:00:00 [facility] Influenza Virus 2019-06-15 Completed [facility] .5 mL 00:00:00 [facility] Influenza Virus 2019-06-15 Completed [facility] .5 mL 00:00:00 [facility] Influenza Virus 2019-06-15 Completed [facility] .5 mL 00:00:00 [facility] Influenza Virus 2019-06-15 Completed [facility] .5 mL 00:00:00 [facility] Influenza Virus 2019-06-15 Completed [facility] .5 mL 00:00:00 [facility] Influenza Virus 2019-06-15 Completed [facility] .5 mL 00:00:00 [facility] Influenza Virus 2019-06-15 Completed [facility] .5 mL 00:00:00 [facility] Influenza Virus 2019-06-15 Completed [facility] .5 mL 00:00:00 [facility] Influenza Virus 2019-06-15 Completed [facility] .5 mL 00:00:00 [facility] Influenza Virus 2019-06-15 Completed [facility] .5 mL 00:00:00 [facility] Influenza Virus 2019-06-15 Completed [facility] .5 mL 00:00:00 [facility] Influenza Virus 2019-06-15 Completed [facility] .5 mL 00:00:00 [facility] Influenza Virus 2019-06-15 Completed [facility] .5 mL 00:00:00 [facility] Influenza Virus 2019-06-15 Completed [facility] .5 mL 00:00:00 [facility] Influenza Virus 2019-06-15 Completed [facility] .5 mL 00:00:00 [facility] Influenza Virus 2019-06-15 Completed [facility] [facility] .5 mL 00:00:00 [facility] Influenza Virus 2019-06-15 Completed [facility] .5 mL 00:00:00 [facility] Influenza Virus 2019-06-15 Completed [facility] .5 mL 00:00:00 [facility] Influenza Virus 2019-06-15 Completed [facility] .5 mL 00:00:00 [facility] Influenza Virus 2019-06-15 Completed [facility] .5 mL 00:00:00 [facility] Influenza Virus 2019-06-15 Completed [facility] .5 mL 00:00:00 [facility] Influenza Virus 2019-06-15 Completed [facility] .5 mL 00:00:00 [facility] Influenza Virus 2019-06-15 Completed [facility] .5 mL 00:00:00 [facility] Influenza Virus 2019-06-15 Completed [facility] .5 mL 00:00:00 [facility] Influenza Virus 2019-06-15 Completed [facility] .5 mL 00:00:00 [facility] Influenza Virus 2019-06-15 Completed [facility] .5 mL 00:00:00 [facility] Influenza Virus 2019-06-15 Completed [facility] .5 mL 00:00:00 [facility] Influenza Virus 2019-06-15 Completed [facility] .5 mL 00:00:00 [facility] Influenza Virus 2019-06-15 Completed [facility] .5 mL 00:00:00 [facility] Influenza Virus 2019-06-15 Completed [facility] .5 mL 00:00:00 [facility] Influenza Virus 2019-06-15 Completed [facility] .5 mL 00:00:00 [facility] Influenza Virus 2019-06-15 Completed [facility] .5 mL 00:00:00 [facility] Influenza Virus 2019-06-15 Completed [facility] .5 mL 00:00:00 [facility] Influenza Virus 2019-06-15 Completed [facility] .5 mL 00:00:00 [facility] Influenza Virus 2019-06-15 Completed [facility] .5 mL 00:00:00 [facility] Influenza Virus 2019-06-15 Completed [facility] .5 mL 00:00:00 [facility] Influenza Virus 2019-06-15 Completed [facility] .5 mL 00:00:00 [facility] Influenza Virus 2019-06-15 Completed [facility] .5 mL 00:00:00 [facility] Influenza Virus 2019-06-15 Completed [facility] .5 mL 00:00:00 [facility] Influenza Virus 2019-06-15 Completed [facility] .5 mL 00:00:00 [facility] Influenza Virus 2019-06-15 Completed [facility] .5 mL 00:00:00 [facility] Influenza Virus 2019-06-15 Completed [facility] .5 mL 00:00:00 [facility] Influenza Virus 2019-06-15 Completed [facility] .5 mL 00:00:00 [facility] Influenza Virus 2019-06-15 Completed [facility] .5 mL 00:00:00 [facility] Influenza Virus 2019-06-15 Completed [facility] .5 mL 00:00:00 [facility] Influenza Virus 2019-06-15 Completed [facility] .5 mL 00:00:00 [facility] Influenza Virus 2019-06-15 Completed [facility] .5 mL 00:00:00 [facility] Influenza Virus 2019-06-15 Completed [facility] .5 mL 00:00:00 [facility] Influenza Virus 2019-06-15 Completed [facility] .5 mL 00:00:00 [facility] Influenza Virus 2019-06-15 Completed [facility] .5 mL 00:00:00 [facility] Influenza Virus 2019-06-15 Completed [facility] .5 mL 00:00:00 [facility] Influenza Virus 2019-06-15 Completed [facility] .5 mL 00:00:00 [facility] Influenza Virus 2019-06-15 Completed [facility] .5 mL 00:00:00 [facility] Influenza Virus 2019-06-15 Completed [facility] .5 mL 00:00:00 [facility] Influenza Virus 2019-06-15 Completed [facility] .5 mL 00:00:00 [facility] Influenza Virus 2019-06-15 Completed [facility] .5 mL 00:00:00 [facility] Influenza Virus 2019-06-15 Completed [facility] .5 mL 00:00:00 [facility] Influenza Virus 2019-06-15 Completed [facility] .5 mL 00:00:00 [facility] Influenza Virus 2019-06-15 Completed [facility] .5 mL 00:00:00 [facility] TDAP 2018-12-02 Completed [facility] 00:00:00 [facility] TDAP 2018-12-02 Completed [facility] 00:00:00 [facility] TDAP 2018-12-02 Completed [facility] 00:00:00 [facility] TDAP 2018-12-02 Completed [facility] 00:00:00 [facility] TDAP 2018-12-02 Completed [facility] 00:00:00 [facility] TDAP 2018-12-02 Completed [facility] 00:00:00 [facility] TDAP 2018-12-02 Completed [facility] 00:00:00 [facility] TDAP 2018-12-02 Completed [facility] 00:00:00 [facility] TDAP 2018-12-02 Completed [facility] 00:00:00 [facility] Tdap 2018-12-02 Completed [facility] 00:00:00 [facility] TDAP 2018-12-02 Completed [facility] 00:00:00 [facility] TDAP 2018-12-02 Completed [facility] 00:00:00 [facility] TDAP 2018-12-02 Completed [facility] 00:00:00 [facility] TDAP 2018-12-02 Completed [facility] 00:00:00 [facility] TDAP 2018-12-02 Completed [facility] 00:00:00 [facility] TDAP 2018-12-02 Completed [facility] 00:00:00 [facility] TDAP 2018-12-02 Completed [facility] 00:00:00 [facility] TDAP 2018-12-02 Completed [facility] 00:00:00 [facility] TDAP 2018-12-02 Completed [facility] 00:00:00 [facility] TDAP 2018-12-02 Completed [facility] 00:00:00 [facility] TDAP 2018-12-02 Completed [facility] 00:00:00 [facility] TDAP 2018-12-02 Completed [facility] 00:00:00 [facility] TDAP 2018-12-02 Completed [facility] 00:00:00 [facility] TDAP 2018-12-02 Completed [facility] 00:00:00 [facility] TDAP 2018-12-02 Completed [facility] 00:00:00 [facility] TDAP 2018-12-02 Completed [facility] 00:00:00 [facility] Tdap 2018-12-02 Completed [facility] 00:00:00 [facility] TDAP 2018-12-02 Completed [facility] 00:00:00 [facility] TDAP 2018-12-02 Completed [facility] 00:00:00 [facility] TDAP 2018-12-02 Completed [facility] 00:00:00 [facility] TDAP 2018-12-02 Completed [facility] 00:00:00 [facility] TDAP 2018-12-02 Completed [facility] 00:00:00 [facility] TDAP 2018-12-02 Completed [facility] 00:00:00 [facility] TDAP 2018-12-02 Completed [facility] 00:00:00 [facility] TDAP 2018-12-02 Completed [facility] 00:00:00 [facility] TDAP 2018-12-02 Completed [facility] 00:00:00 [facility] TDAP 2018-12-02 Completed [facility] 00:00:00 [facility] Tdap 2018-12-02 Completed [facility] 00:00:00 [facility] TDAP 2018-12-02 Completed [facility] 00:00:00 [facility] Tdap 2018-12-02 Completed [facility] 00:00:00 [facility] Tdap 2018-12-02 Completed [facility] 00:00:00 [facility] Tdap 2018-12-02 Completed [facility] 00:00:00 [facility] Tdap 2018-12-02 Completed [facility] 00:00:00 [facility] Tdap 2018-12-02 Completed [facility] 00:00:00 [facility] Tdap 2018-12-02 Completed [facility] 00:00:00 [facility] Tdap 2018-12-02 Completed [facility] 00:00:00 [facility] Tdap 2018-12-02 Completed [facility] 00:00:00 [facility] Tdap 2018-12-02 Completed [facility] 00:00:00 [facility] Tdap 2018-12-02 Completed [facility] 00:00:00 [facility] Tdap 2018-12-02 Completed [facility] 00:00:00 [facility] TDAP 2018-12-02 Completed [facility] 00:00:00 [facility] Tdap 2018-12-02 Completed [facility] 00:00:00 [facility] Tdap 2018-12-02 Completed [facility] 00:00:00 [facility] TDAP 2018-12-02 Completed [facility] 00:00:00 [facility] TDAP 2018-12-02 Completed [facility] 00:00:00 [facility] TDAP 2018-12-02 Completed [facility] 00:00:00 [facility] TDAP 2018-12-02 Completed [facility] 00:00:00 [facility] TDAP 2018-12-02 Completed [facility] 00:00:00 [facility] TDAP 2018-12-02 Completed [facility] 00:00:00 [facility] TDAP 2018-12-02 Completed [facility] 00:00:00 [facility] TDAP 2018-12-02 Completed [facility] 00:00:00 [facility] TDAP 2018-12-02 Completed [facility] 00:00:00 [facility] TDAP 2018-12-02 Completed [facility] 00:00:00 [facility] TDAP 2018-12-02 Completed [facility] 00:00:00 [facility] TDAP 2018-12-02 Completed [facility] 00:00:00 [facility] TDAP 2018-12-02 Completed [facility] 00:00:00 [facility] TDAP 2018-12-02 Completed [facility] 00:00:00 [facility] TDAP 2018-12-02 Completed [facility] 00:00:00 [facility] TDAP 2018-12-02 Completed [facility] 00:00:00 [facility] TDAP 2018-12-02 Completed [facility] 00:00:00 [facility] TDAP 2018-12-02 Completed [facility] 00:00:00 [facility] TDAP 2018-12-02 Completed [facility] 00:00:00 [facility] TDAP 2018-12-02 Completed [facility] 00:00:00 [facility] TDAP 2018-12-02 Completed [facility] 00:00:00 [facility] TDAP 2018-12-02 Completed [facility] 00:00:00 [facility] TDAP 2018-12-02 Completed [facility] 00:00:00 [facility] TDAP 2018-12-02 Completed [facility] 00:00:00 [facility] Tdap 2018-12-02 Completed [facility] 00:00:00 [facility] TDAP 2018-12-02 Completed [facility] 00:00:00 [facility] Influenza Virus 2018-08-10 Completed [facility] .5 mL 00:00:00 [facility] Influenza Virus 2018-08-10 Completed [facility] .5 mL 00:00:00 [facility] Influenza Virus 2018-08-10 Completed [facility] .5 mL 00:00:00 [facility] Influenza Virus 2018-08-10 Completed [facility] .5 mL 00:00:00 [facility] Influenza Virus 2018-08-10 Completed [facility] .5 mL 00:00:00 [facility] Influenza Virus 2018-08-10 Completed [facility] .5 mL 00:00:00 [facility] Influenza Virus 2018-08-10 Completed [facility] .5 mL 00:00:00 [facility] Influenza Virus 2018-08-10 Completed [facility] .5 mL 00:00:00 [facility] Influenza Virus 2018-08-10 Completed [facility] .5 mL 00:00:00 [facility] Influenza Virus 2018-08-10 Completed [facility] .5 mL 00:00:00 [facility] Influenza Virus 2018-08-10 Completed [facility] .5 mL 00:00:00 [facility] Influenza Virus 2018-08-10 Completed [facility] .5 mL 00:00:00 [facility] Influenza Virus 2018-08-10 Completed [facility] .5 mL 00:00:00 [facility] Influenza Virus 2018-08-10 Completed [facility] .5 mL 00:00:00 [facility] Influenza Virus 2018-08-10 Completed [facility] .5 mL 00:00:00 [facility] Influenza Virus 2018-08-10 Completed [facility] .5 mL 00:00:00 [facility] Influenza Virus 2018-08-10 Completed [facility] .5 mL 00:00:00 [facility] Influenza Virus 2018-08-10 Completed [facility] .5 mL 00:00:00 [facility] Influenza Virus 2018-08-10 Completed [facility] .5 mL 00:00:00 [facility] Influenza Virus 2018-08-10 Completed [facility] .5 mL 00:00:00 [facility] Influenza Virus 2018-08-10 Completed [facility] .5 mL 00:00:00 [facility] Influenza Virus 2018-08-10 Completed [facility] .5 mL 00:00:00 [facility] Influenza Virus 2018-08-10 Completed [facility] .5 mL 00:00:00 [facility] Influenza Virus 2018-08-10 Completed [facility] .5 mL 00:00:00 [facility] Influenza Virus 2018-08-10 Completed [facility] .5 mL 00:00:00 [facility] Influenza Virus 2018-08-10 Completed [facility] .5 mL 00:00:00 [facility] Influenza Virus 2018-08-10 Completed [facility] .5 mL 00:00:00 [facility] Influenza Virus 2018-08-10 Completed [facility] .5 mL 00:00:00 [facility] Influenza Virus 2018-08-10 Completed [facility] .5 mL 00:00:00 [facility] Influenza Virus 2018-08-10 Completed [facility] .5 mL 00:00:00 [facility] Influenza Virus 2018-08-10 Completed [facility] .5 mL 00:00:00 [facility] Influenza Virus 2018-08-10 Completed [facility] .5 mL 00:00:00 [facility] Influenza Virus 2018-08-10 Completed [facility] .5 mL 00:00:00 [facility] Influenza Virus 2018-08-10 Completed [facility] .5 mL 00:00:00 [facility] Influenza Virus 2018-08-10 Completed [facility] .5 mL 00:00:00 [facility] Influenza Virus 2018-08-10 Completed [facility] .5 mL 00:00:00 [facility] Influenza Virus 2018-08-10 Completed [facility] .5 mL 00:00:00 [facility] Influenza Virus 2018-08-10 Completed [facility] .5 mL 00:00:00 [facility] Influenza Virus 2018-08-10 Completed [facility] .5 mL 00:00:00 [facility] Influenza Virus 2018-08-10 Completed [facility] .5 mL 00:00:00 [facility] Influenza Virus 2018-08-10 Completed [facility] .5 mL 00:00:00 [facility] Influenza Virus 2018-08-10 Completed [facility] .5 mL 00:00:00 [facility] Influenza Virus 2018-08-10 Completed [facility] .5 mL 00:00:00 [facility] Influenza Virus 2018-08-10 Completed [facility] .5 mL 00:00:00 [facility] Influenza Virus 2018-08-10 Completed [facility] .5 mL 00:00:00 [facility] Influenza Virus 2018-08-10 Completed [facility] .5 mL 00:00:00 [facility] Influenza Virus 2018-08-10 Completed [facility] .5 mL 00:00:00 [facility] Influenza Virus 2018-08-10 Completed [facility] .5 mL 00:00:00 [facility] Influenza Virus 2018-08-10 Completed [facility] .5 mL 00:00:00 [facility] Influenza Virus 2018-08-10 Completed [facility] .5 mL 00:00:00 [facility] Influenza Virus 2018-08-10 Completed [facility] .5 mL 00:00:00 [facility] Influenza Virus 2018-08-10 Completed [facility] .5 mL 00:00:00 [facility] Influenza Virus 2018-08-10 Completed [facility] .5 mL 00:00:00 [facility] Influenza Virus 2018-08-10 Completed [facility] .5 mL 00:00:00 [facility] Influenza Virus 2018-08-10 Completed [facility] .5 mL 00:00:00 [facility] Influenza Virus 2018-08-10 Completed [facility] .5 mL 00:00:00 [facility] Influenza Virus 2018-08-10 Completed [facility] .5 mL 00:00:00 [facility] Influenza Virus 2018-08-10 Completed [facility] .5 mL 00:00:00 [facility] Influenza Virus 2018-08-10 Completed [facility] .5 mL 00:00:00 [facility] Influenza Virus 2018-08-10 Completed [facility] .5 mL 00:00:00 [facility] Influenza Virus 2018-08-10 Completed [facility] .5 mL 00:00:00 [facility] Influenza Virus 2018-08-10 Completed [facility] .5 mL 00:00:00 [facility] Influenza Virus 2018-08-10 Completed [facility] .5 mL 00:00:00 [facility] Influenza Virus 2018-08-10 Completed [facility] .5 mL 00:00:00 [facility] Influenza Virus 2018-08-10 Completed [facility] .5 mL 00:00:00 [facility] Influenza Virus 2018-08-10 Completed [facility] .5 mL 00:00:00 [facility] Influenza Virus 2018-08-10 Completed [facility] .5 mL 00:00:00 [facility] Influenza Virus 2018-08-10 Completed [facility] .5 mL 00:00:00 [facility] Influenza Virus 2018-08-10 Completed [facility] .5 mL 00:00:00 [facility] Influenza Virus 2018-08-10 Completed [facility] .5 mL 00:00:00 [facility] Influenza Virus 2018-08-10 Completed [facility] .5 mL 00:00:00 [facility] Influenza Virus 2018-08-10 Completed [facility] .5 mL 00:00:00 [facility] Influenza Virus 2018-08-10 Completed [facility] .5 mL 00:00:00 [facility] Influenza Virus 2018-08-10 Completed [facility] .5 mL 00:00:00 [facility] Influenza Virus 2018-08-10 Completed [facility] .5 mL 00:00:00 [facility] Influenza Virus 2018-08-10 Completed [facility] .5 mL 00:00:00 [facility] Influenza Virus 2018-08-10 Completed [facility] .5 mL 00:00:00 [facility] Influenza Virus 2018-08-10 Completed [facility] .5 mL 00:00:00 [facility] Influenza Virus 2018-08-10 Completed [facility] .5 mL 00:00:00 [facility] 6[facility] MO [facility] Vital Signs Vital Name Observation Time Observation Value Comments Source Systolic blood 2022-04-18 148 mm[Hg] [facility] pressure 14:00:00 [facility] Diastolic blood 2022-04-18 94 mm[Hg] [place] o f pressure 14:00:00 [facility] Heart rate 2022-04-18 75 /min [facility] 14:00:00 [facility] Respiratory rate 2022-04-18 18 /min [facility] 14:00:00 [facility] Oxygen saturation 2022-04-18 98 /min [facility] of in Arterial blood 14:00:00 [facility] by Pulse oximetry Branch Body temperature 2022-04-18 36.72 [place] University [facility] 11:30:00 [facility] Body height 2022-04-18 172.7 cm University of 11:30:00 [facility] Body weight 2022-04-18 88.451 kg University of 11:30:00 [facility] BMI 2022-04-18 29.65 kg/m2 University of 11:30:00 [facility] Systolic blood 2021-07-24 151 mm[Hg] took B/P Rx 30 [facility] pressure 20:20:00 mins ago [facility] Diastolic blood 2021-07-24 96 mm[Hg] took B/P Rx 30 [facility] pressure 20:20:00 mins ago [facility] Heart rate 2021-07-24 88 /min [facility] 20:17:00 [facility] Body temperature 2021-07-24 36.5 [place] [facility] 20:17:00 [facility] Respiratory rate 2021-07-24 16 /min [facility] of 20:17:00 [facility] Body height 2021-07-24 172.7 cm University of 20:17:00 [facility] Body weight 2021-07-24 86.835 kg University of 20:17:00 [facility] BMI 2021-07-24 29.11 kg/m2 University of 20:17:00 [facility] Oxygen saturation 2021-07-24 97 /min [place] of in Arterial blood 20:17:00 [facility] by Pulse oximetry Branch Systolic blood 2021-01-29 110 mm[Hg] [facility] pressure 01:30:00 [facility] Diastolic blood 2021-01-29 70 mm[Hg] [facility] o f pressure :30:00 [facility] Heart rate 2021-01-29 85 /min University of :30:00 [facility] Body temperature 2021-01-29 37 [place] University of :30:00 [facility] Respiratory rate 2021-01-29 18 /min University of :30:00 [facility] Body height 2021-01-29 172.7 cm University [facility] :30:00 [facility] Body weight 2021-01-29 88.451 kg University of 01:30:00 [facility] BMI 2021-01-29 29.65 kg/m2 University of 01:30:00 [facility] Oxygen saturation 2021-01-29 99 /min [facility] of in Arterial blood 01:30:[address] [facility] [place] [place] by Pulse oximetry Branch Systolic blood 2020-09-21 116 mm[Hg] [facility] pressure 19:59:00 [facility] Diastolic blood 2020-09-21 73 mm[Hg] University o f pressure 19:59:00 [facility] Heart rate 2020-09-21 88 /min [facility] of 19:59:00 [facility] Body temperature 2020-09-21 36.89 [place] [facility] of 19:59:00 [facility] Body height 2020-09-21 172.7 cm University of 19:59:00 [facility] Body weight 2020-09-21 90.266 kg University of 19:59:00 [facility] BMI 2020-09-21 30.26 kg/m2 University of 19:59:00 [facility] Body height 2019-09-21 172.7 cm University of 13:07:00 [facility] Body weight 2019-09-21 89.812 kg University of 13:07:00 [facility] BMI 2019-09-21 30.11 kg/m2 University of 13:07:00 [facility] Body height 2019-09-21 172.7 cm University of 13:07:00 [facility] Body weight 2019-09-21 89.812 kg University of 13:07:00 [facility] BMI 2019-09-21 30.11 kg/m2 University of 13:07:00 [facility] Body weight 2019-08-05 92.08 kg University of 20:00:00 [facility] BMI 2019-08-05 30.87 kg/m2 University of 20:00:00 [facility] Heart rate 2019-08-05 68 /min [facility] of 18:01:00 [facility] Respiratory rate 2019-08-05 18 /min [facility] of 18:01:00 [facility] Oxygen saturation 2019-08-05 97 /min [place] of in Arterial blood 18:01:[address] [facility] [place] [place] by Pulse oximetry Branch Systolic blood 2019-08-05 128 mm[Hg] [facility] pressure 17:16:00 [facility] Diastolic blood 2019-08-05 79 mm[Hg] University o f pressure 17:16:00 [facility] Body temperature 2019-08-05 36.33 [place] University of 17:16:00 [facility] Body height 2019-08-05 172.7 cm University of 05:03:00 [facility] Systolic blood 2019-08-02 152 mm[Hg] University of pressure 03:00:00 [facility] Diastolic blood 2019-08-02 99 mm[Hg] University o f pressure 03:00:00 [facility] Heart rate 2019-08-02 67 /min University of 03:00:00 [facility] Respiratory rate 2019-08-02 16 /min University of 03:00:00 [facility] Oxygen saturation 2019-08-02 94 /min [facility] in Arterial blood 03:00:00 [facility] by Pulse oximetry Critz Body temperature 2019-08-01 36.39 [place] University of 22:04:00 [facility] Body height 2019-08-01 172.7 cm University of 22:04:00 [facility] Body weight 2019-08-01 90.719 kg University of 22:04:00 [facility] BMI 2019-08-01 30.41 kg/m2 University of 22:04:00 [facility] Systolic blood 2019-03-16 157 mm[Hg] University of pressure 19:51:00 [facility] Diastolic blood 2019-03-16 79 mm[Hg] University o f pressure 19:51:00 [facility] Heart rate 2019-03-16 73 /min University of 19:51:00 [facility] Body temperature 2019-03-16 36.94 [place] University of 19:51:00 [facility] Respiratory rate 2019-03-16 16 /min University of 19:51:00 [facility] Body height 2019-03-16 172.7 cm University of 19:51:00 [facility] Body weight 2019-03-16 87.998 kg University of 19:51:00 [facility] BMI 2019-03-16 29.50 kg/m2 University of 19:51:00 [facility] Systolic blood 2019-03-15 164 mm[Hg] University of pressure 20:10:00 [facility] Diastolic blood 2019-03-15 89 mm[Hg] University o f pressure 20:10:00 [facility] Heart rate 2019-03-15 68 /min University of 20:10:00 [facility] Body temperature 2019-03-15 36.89 [place] University 20:10:00 [facility] Respiratory rate 2019-03-15 19 /min University 20:10:00 [facility] Body weight 2019-03-15 86.183 kg [facility] 20:10:00 [facility] BMI 2019-03-15 28.89 kg/m2 University 20:10:00 [facility] Oxygen saturation 2019-03-15 98 /min [facility] in Arterial blood 20:10:00 [facility] by Pulse oximetry Branch Systolic (mm Hg) 2020-11-19 [facility] 14:13:00 Diastolic (mm Hg) 2020-11-19 [facility] H ermann 14:13:00 Heart Rate 2020-11-19 [facility] 14:13:00 Height 2020-11-19 172.72 cm [facility] 14:13:00 Weight 2020-11-19 [facility] 14:13:00 BMI Calculated 2020-11-19 [facility] gonzalez 14:13:00 Respitory Rate 2016-11-07 [facility] gonzalez 18:45:00 Systolic (mm Hg) 2016-11-07 [facility] 18:45:00 Diastolic (mm Hg) 2016-11-07 [facility] ermann 18:45:00 Temperature Oral 2016-11-07 97.9 F [facility] Enrique rmann (F) 18:45:00 Heart Rate 2016-11-07 [facility] 18:45:00 Height 2016-11-07 172.72 cm [facility] 16:56:00 BMI Calculated 2016-11-07 [facility]onzalez 16:56:00 Weight 2016-11-07 [facility] 16:56:00 Respitory Rate 2016-11-07 [facility] gonz[facility] 16:56:00 Heart Rate 2016-11-07 [facility] 16:56:00 Temperature Oral 2016-11-07 98.2 F [facility] rmann (F) 16:56:00 Systolic (mm Hg) 2016-11-07 [facility] rmann 16:56:00 Diastolic (mm Hg) 2016-11-07 [facility] ermann 16:56:00 Procedures Procedure Date / Time Performing Clinician Source Performed REFERRAL- 2022-10-07 05:01:00 Doctor Unassigned, No Univer [facility] REQUEST/RESPONSE Name Medical Branch EXTERNAL PROVIDER 2022-09-16 06:01:00 Doctor Unassigned, No [facility] [place] RECORDS Name Medical Branch EXTERNAL PROVIDER 2022-06-24 06:01:00 Doctor Unassigned, No [facility] [place] RECORDS Name Medical Branch REFERRAL- 2022-05-26 06:01:00 Doctor Unassigned, No [facility]iver [facility] [place] REQUEST/RESPONSE Name Medical Branch CT ABDOMEN PELVIS WO 2022-04-18 12:32:[address] [facility] [place] [place] [facility] Medical Branch LIPASE 2022-04-18 11:34:00 Jose David [facility] COMP. METABOLIC PANEL 2022-04-18 11:34:00 Jose David [facility] ([id number]) Medical Branch CBC WITH DIFF 2022-04-18 11:34:00 Jose David [facility] URINALYSIS 2022-04-18 11:34:00 Jose David [facility] NOTICE OF PRIVACY 2022-04-18 11:22:20 Doctor Unassigned, No [facility] [place] PRACTICES Name Medical Branch CONSENT/REFUSAL FOR 2022-04-18 11:22:06 Doctor Unassigned, No [facility] [place] DIAGNOSIS AND TREATMENT Name Medical Branch EXTERNAL PROVIDER 2021-12-12 05:01:00 Doctor Unassigned, No [facility] [place] RECORDS Name Medical Branch REFERRAL- 2021-09-27 05:01:00 Doctor Unassigned, No [facility]iver [facility] [place] REQUEST/RESPONSE Name Medical Branch REFERRAL- 2021-09-10 06:01:00 Doctor Unassigned, No [facility]iver [facility] [place] REQUEST/RESPONSE Name Medical Branch SARS-COV-2 COVID-19 2021-07-03 17:37:02 Doctor Unassigned, No [facility] [place] VACCINE,0.3ML,IM Name Medical Branch (PFIZER) REFERRAL- 2021-05-15 05:01:00 Doctor Unassigned, No [facility]iver [facility] [place] REQUEST/RESPONSE Name Medical Branch ASSIGNMENT OF BENEFITS 2021-01-29 01:28:15 Doctor Unassigned, No [facility] Name [facility] REFERRAL- 2020-12-24 05:01:00 Doctor Unassigned, No [facility]iver [facility] [place] REQUEST/RESPONSE Name Medical Branch EXTERNAL PROVIDER 2020-10-22 05:01:00 Doctor Unassigned, No [facility] Name Medical Branch EXTERNAL PROVIDER 2020-08-22 06:01:00 Doctor Unassigned, No [facility] [place] [facility] Name Medical Branch REFERRAL- 2020-04-10 05:01:00 Doctor Unassigned, No [facility]iver [facility] [place] REQUEST/RESPONSE Name Medical Branch REFERRAL- 2019-09-22 05:01:00 Doctor Unassigned, No [facility] [place] REQUEST/RESPONSE Name Medical Branch POCT GLUCOSE 2019-08-05 20:45:00 [facility] (AUTOMATED) [facility] PROTHROMBIN TIME / INR 2019-08-05 17:52[facility] 2019-08-05 [facility] POCT GLUCOSE 2019-08-05 16:07[facility] POCT GLUCOSE 2019-08-05 05:57:00 [facility] (AUTOMATED) [facility] XR CHEST 2 VW 2019-08-05 02:45:28 [facility] TROPONIN I 2019-08-05 02:33:00 [facility] EKG-12 LEAD 2019-08-05 02:30:16 [facility] BASIC METABOLIC PANEL 2019-08-05 02:29:00 Fernando Ventura [facility] (NA, K, CL, CO2, Medical Branch GLUCOSE, BUN, CREATININE, CA) CBC WITH DIFFERENTIAL 2019-08-05 02:29:00 Audrey [facility] N-TERMINAL PRO-BNP 2019-08-05 02:29:00 Rosie Odom [facility] CT ABDOMEN PELVIS W 2019-08-02 01:02:45 Keyonna Baltazar [facility] CONTRAST [facility] CT THORAX W CONTRAST 2019-08-02 01:00:29 Keyonna [facility] XR RIBS 3 VW LEFT 2019-08-01 23:09:48 Keyonna Baltazar [facility] URINALYSIS 2019-08-01 23:07:00 Keyonna Baltazar [facility] TROPONIN I 2019-08-01 22:35:00 Keyonna Baltazar [facility] HEPATIC FUNCTION PANEL 2019-08-01 22:35:00 Keyonna Baltazar [facility] ([id number]) (ALB,T.PRO,BILI [facility] Branch T,BU/BC,ALT,AST,ALK PHOS) BASIC METABOLIC PANEL 2019-08-01 22:35:00 Keyonna Baltazar [facility] (NA, K, CL, CO2, Medical Branch GLUCOSE, BUN, CREATININE, CA) CBC WITH DIFFERENTIAL 2019-08-01 22:35:00 Giovanny Keyonna [facility] PROTHROMBIN TIME / INR 2019-08-01 22:35:00 Keyonna Baltazar [facility] ACTIVATED PARTIAL 2019-08-01 22:35:00 [facility] N-TERMINAL PRO-BNP 2019-08-01 22:35:00 Keyonna Baltazar [facility] EKG-12 LEAD 2019-08-01 22:20:45 Keyonna Baltazar [facility] NOTICE OF PRIVACY 2019-08-01 21:57:45 Doctor Unassigned, No [facility] Medical Branch CONSENT/REFUSAL FOR 2019-08-01 21:57:34 Doctor Unassigned, No [facility] Name [facility] POCT HEMOGLOBIN A1C 2019-03-16 00:00:00 [place] Saucedo [facility] TEST [facility] Branch XR CHEST 2 VW 2019-03-15 21:02:19 Trisha Duron [facility] EKG-12 LEAD 2019-03-15 20:36:59 Trisha Duron [facility] NOTICE OF PRIVACY 2019-03-15 19:52:23 Doctor Unassigned, No [facility] Name [facility] CONSENT/REFUSAL FOR 2019-03-15 19:52:15 Doctor Unassigned, No [facility] TREATMENT Name Medical Branch Stent placement [facility] Encounters Start End Encounter Admission Attending Care Care Encounter Source Date/Time Date/Time Type Type Clinicians Facility Department ID 2023-06-22 2023-06-22 Outpatient ANDRAE ABEBE [id number] Memoria 09:00:00 09:00:00 06 tori Bennett 2023-01-05 2023-01-06 Outpatient ANDRAE [facility] Prasanth [id number] Memoria 13:30:00 04:59:59 Specialty 05 [facility] gonzalez [place] 2023-01-05 2023-01-05 Outpatient Richi [facility] [id number] 08:30:00 23:59:59 Licha Tori 05 2023-01-05 2023-01-05 Outpatient ANDRAE ABEBE [id number] Memoria 08:30:00 08:30:00 05 tori Bennett 2022-10-07 2022-10-07 Orders Doctor FISH Dodson2.840.114 [id number] Univers 00:00:00 00:00:00 Only Unassigned, NAEEM 350.1.13.[address] [facility] 4.2.7.2.686 Neil as [phone] [facility] marion 009 Critz 2022-09-22 2022-09-22 Ambulatory ANDRAE Multi [id number] Memoria 14:00:00 14:00:00 Pre-Reg Specialty 04 [facility] gonzalez [place] 2022-09-22 2022-09-22 Outpatient ANDRAE BRAGGJESSICA [id number] Memoria 09:00:00 09:00:00 04 tori Bennett 2022-09-22 2022-09-22 Outpatient Richi [facility] [id number] 09:00:00 09:00:00 Licha L 04 2022-09-16 2022-09-16 Orders Doctor FISH Dodson2.840.114 [id number] Univers 00:00:00 00:00:00 Only Unassigned, NAEEM 350.1.13.[address] [facility] 4.2.7.2.686 Neil as [phone] Medi marion 009 Critz 2022-06-23 2022-06-24 Outpatient YEMIIE [facility] Multi [id number] Memoria 21:20:00 05:59:59 Specialty 03 l [facility] gonzalez [place] 2022-06-24 2022-06-24 Orders Doctor FISH 1.2.840.114 [id number] Univers 00:00:00 00:00:00 Only Unassigned, NAEEM 350.1.13.[address] [facility] 4.2.7.2.686 Neil as [phone] [address] 2022-06-23 2022-06-23 Outpatient Richi [facility] [id number] 15:20:00 23:59:59 Licha L 2022-06-23 2022-06-23 Outpatient IE IE [id number] Memoria 15:20:00 15:20:00 03 tori Bennett 2022-06-09 2022-06-09 Ambulatory MHIE [facility] Multi [id number] Memoria 17:00:00 17:00:00 Pre-Reg Specialty 02 l [facility] 2022-06-09 2022-06-09 Outpatient IE [facility] [id number] Memoria 11:00:00 11:00:00 02 tori Bennett 2022-06-09 2022-06-09 Outpatient Richi [facility] [id number] 11:00:00 11:00:00 Licha L 2022-05-26 2022-05-26 Orders Doctor FISH 1.2.840.114 [id number] Univers 00:00:00 00:00:00 Only Unassigned, NAEEM 350.1.13.[address] [facility] 4.2.7.2.686 Neil as [phone] [address] 2022-04-19 2022-04-19 [facility] 1.2.840.114 [id number] Univers 00:00:00 00:00:00 [facility] 350.1.13.10 it y of [place] 4.2.7.2.686 Neil as BC?BLEA [phone] [place] [address]ise[address] MEDICAL OFFICE BUILDING 2022-04-18 2022-04-18 Emergency X SINGER [facility] ERT [id number] Univers 06:24:00 09:08:00 YUNIOR mclean of [facility] 2022-04-18 2022-04-18 Emergency Hood, [facility] 1.2.225.140 [id number] Univers 06:24:00 09:08:00 Yunior CHERRY 350.1.13.10 i ty of [place] [phone] [facility] 084 Critz 2022-04-18 2022-04-18 Orders Doctor FISH 1.2.840.114 [id number] Univers 00:00:00 00:00:00 Only Unassigned, NAEEM 350.1.13.[address] [facility] 4.2.7.2.686 Neil as [phone] [facility] 009 Critz 2022-03-08 2022-03-08 [facility] 1.2.840.114 [id number] Univers 00:00:00 00:00:00 [facility] 350.1.13.10 it y of [place] [facility] 4.2.7.2.686 Neil as BC?BLEA [phone] [address] MEDICAL OFFICE [facility] 2022-01-24 2022-01-24 [facility] 1.2.840.114 [id number] Univers 00:00:00 00:00:00 [place] [facility] 350.1.13.10 it y of [place] [facility] 4.2.7.2.686 Neil as BC?BLEA [id number] [address] OFFICE [facility] 2022-01-24 2022-01-24 [facility] 1.2.840.114 [id number] Univers 00:00:00 00:00:00 [place] [facility] 350.1.13.10 it y of [place] 4.2.7.2.686 Neil as BC?BLEA [phone] [address] OFFICE [facility] 2022-01-06 2022-01-06 Telephone Team, [facility] FISH 1.2.840.114 [id number] Univers 00:00:00 00:00:00 Health NAEEM 350.1.13.10 it y of Maintenance HOSPITAL 4.2.7.2.686 [place] [phone] [place] [address] Critz 2021-12-28 2021-12-28 [facility] 1.2.840.114 [id number] Univers 00:00:00 00:00:00 [facility] HEALTH 350.1.13.10 it y of [place] 4.2.7.2.686 Neil as BC?BLEA [phone] [address] MEDICAL OFFICE [facility] 2021-12-19 2021-12-19 Refconstantine [facility] 1.2.840.114 [id number] Univers 00:00:00 00:00:00 [place] [facility] 350.1.13.10 it y of [place] 4.2.7.2.686 Neil as BC?BLEA [phone] [address] MEDICAL OFFICE [facility] 2021-12-12 2021-12-12 Orders Doctor FISH 1.2.840.114 [id number] Univers 00:00:00 00:00:00 Only Unassigned, NAEEM 350.1.13.[address] [facility] 4.2.7.2.686 Neil as [id number] [facility] 009 Critz 2021-11-27 2021-11-27 [facility] 1.2.840.114 [id number] Univers 00:00:00 00:00:00 [facility] HEALTH 350.1.13.10 it y of [place] 4.2.7.2.686 Neil as BC?BLEA [phone] [address] MEDICAL OFFICE [facility] 2021-11-16 2021-11-16 Outpatient R [facility] [id number] Univers 09:15:00 09:15:00 ity of [facility] 2021-11-04 2021-11-04 Larry [facility] 1.2.840.114 [id number] Univers 00:00:00 00:00:00 [facility] 350.1.13.10 it y of [place] 4.2.7.2.686 Neil as BC?BLEA [phone] [address] MEDICAL OFFICE [facility] 2021-10-20 2021-10-20 Larry [facility] 1.2.840.114 [id number] Univers 00:00:00 00:00:00 [place] [facility] 350.1.13.10 it y of [place] 4.2.7.2.686 Neil as BC?BLEA [id number] [address] MEDICAL OFFICE [facility] 2021-10-11 2021-10-11 Outpatient R [facility] [id number] Univers 09:00:00 09:00:00 DAVID ity of [facility] 2021-09-27 2021-09-27 Orders Doctor FISH 1.2.840.114 [id number] Univers 00:00:00 00:00:00 Only Unassigned, NAEEM 350.1.13.[address] [facility] 4.2.7.2.686 Neil as [phone] [facility] 009 Critz 2021-09-10 2021-09-10 Orders Doctor FISH 1.2.840.114 [id number] Univers 00:00:00 00:00:00 Only Unassigned, NAEEM 350.1.13.[address] 4.2.7.2.686 Neil as [phone] [facility] 009 Critz 2021-09-04 2021-09-04 Telephone FISH Hobbs 1.2.148.845 [id number] Univers 00:00:00 00:00:00 Violeta Baez NAEEM 350.1.13.10 i ty of HOSPITAL 4.2.7.2.686 Neil as [phone] [facility] 082 Critz 2021-08-12 2021-08-12 Larry [facility] 1.2.840.114 [id number] Univers 00:00:00 00:00:00 [place] HEALTH 350.1.13.10 it y of [place] 4.2.7.2.686 Neil as BC?BLEA [phone] [address] MEDICAL OFFICE [facility] 2021-07-24 2021-07-24 Mally Olivera [facility] 1.2.840.114 [id number] Univers 14:20:00 14:40:00 Care Antolin, [place] HEALTH 350.1.13.10 ity of [place] 4.2.7.2.686 Neil as BC?BLEA [phone] [place] METZEY 370 Critz MEDICAL OFFICE [facility] 2021-07-24 2021-07-24 Outpatient R ANTOLIN [facility] [id number] Univers 14:20:00 14:20:00 CHELSEA ity [facility] 2021-07-20 2021-07-20 [facility] 1.2.840.114 [id number] Univers 00:00:00 00:00:00 [facility] 350.1.13.10 it y of [place] [facility] 4.2.7.2.686 Neil as BC?BLEA [phone] [place] MONTOYA 044 [facility] OFFICE [facility] 2021-07-03 2021-07-03 Outpatient R INÉS [facility] [id number] Univers 10:50:00 10:50:00 DAVID itvarun [facility] 2021-07-03 2021-07-03 Imm/Inj Nurse, Adc Pob Immunization [facility] 1.2.840.114 [id number] Univers 10:50:00 10:50:00 [facility] 350.1.13 .10 ity of [place] [id number] [place] mima LUCIANO 421 [facility] 2021-07-01 2021-07-01 [facility] 1.2.840.114 [id number] Univers 00:00:00 00:00:00 [facility] 350.1.13.10 it y of [place] 4.2.7.2.686 Neil as BC?BLEA [phone] [place] MONTOYA 044 Critz MEDICAL OFFICE [facility] 2021-06-11 2021-06-11 [facility] 1.2.840.114 [id number] Univers 00:00:00 00:00:00 [facility] 350.1.13.10 it y of [place] 4.2.7.2.686 Neil as BC?BLEA [phone] [place] MONTOYA 044 [facility] OFFICE [facility] 2021-05-28 2021-05-28 [facility] 1.2.840.114 [id number] Univers 00:00:00 00:00:00 [facility] 350.1.13.10 it y of [place] 4.2.7.2.686 Neil as BC?BLEA [phone] [address] OFFICE [facility] 2021-05-15 2021-05-15 Telephone [facility] 1.2.840.114 [id number] Univers 00:00:00 00:00:00 [facility] 350.1.13.10 it y of [place] 4.2.7.2.686 Neil as BC?BLEA [phone] [address] 2021-05-15 2021-05-15 Orders Doctor FISH 1.2.840.114 [id number] Univers 00:00:00 00:00:00 Only Unassigned, NAEEM 350.1.13.[address] [facility] 4.2.7.2.686 Neil as [phone] [address] 2021-05-13 2021-05-13 Ambulatory nullFlavo [facility] Multi [id number] Memoria 18:35:00 18:35:00 Pre-Reg r Specialty 01 [facility] 2021-05-13 2021-05-13 Ambulatory nullFlavo [facility] Multi [id number] Memoria 18:35:00 18:35:00 Pre-Reg r Specialty 01 [facility] 2021-05-13 2021-05-13 Outpatient YEMIIE IE [id number] Memoria 13:35:00 13:35:00 01 [facility] 2021-05-13 2021-05-13 Outpatient Richi, [facility] [id number] 13:35:00 13:35:00 Licha L 2021-05-13 2021-05-13 [facility] 1.2.840.114 [id number] Univers 00:00:00 00:00:00 [facility] 350.1.13.10 it y of [place] 4.2.7.2.686 Neil as PROFESSIO [phone] [address] ONE 2021-05-12 2021-05-12 [facility] 1.2.840.114 [id number] Univers 00:00:00 00:00:00 [facility] HEALTH 350.1.13.10 it y of [place] 4.2.7.2.686 Neil as PROFESSIO [id number] [address] ONE 2021-04-30 2021-04-30 [facility] 1.2.840.114 [id number] Univers 00:00:00 00:00:00 [facility] Health 350.1.13.10 it y of [place] 4.2.7.2.686 Neil as Professio [phone] [address] One 2021-04-10 2021-04-10 [facility] 1.2.840.114 [id number] Univers 00:00:00 00:00:00 [facility] Health 350.1.13.10 it y of [place] 4.2.7.2.686 Neil as Professio [phone] [address] One 2021-04-02 2021-04-02 [facility] 1.2.840.114 [id number] Univers 00:00:00 00:00:00 [facility] Health 350.1.13.10 it y of [place] 4.2.7.2.686 Neil as Professio [phone] [address] One 2021-03-12 2021-03-12 [facility] 1.2.840.114 [id number] Univers 00:00:00 00:00:00 [facility] Health 350.1.13.10 it y of [place] 4.2.7.2.686 Neil as Professio [phone] [facility] nal [address] [place] [address] One 2021-02-12 2021-02-12 [facility] 1.2.840.114 [id number] Univers 00:00:00 00:00:00 [facility] Health 350.1.13.10 it y of [place] 4.2.7.2.686 Neil as Professio [phone] [address] One 2021-01-29 2021-01-29 Outpatient R RUBA [facility] [id number] Univers 13:15:00 13:15:00 CAROLINA [facility] 2021-01-28 2021-01-28 Outpatient R JAYCE [facility] [id number] Univers 20:40:00 20:40:00 [facility] 2021-01-28 2021-01-28 Urgent Fish Gardner [facility] 1.2.840.114 [id number] Univers 20:28:23 20:39:50 Care Jayce [facility] 350.1.13.10 ity of [place] 4.2.7.2.686 Neil as Professio [phone] [address] One 2021-01-28 2021-01-28 Orders Doctor FISH 1.2.840.114 [id number] Univers 00:00:00 00:00:00 Only Unassigned, NAEEM 350.1.13.[address] [facility] 4.2.7.2.686 Neil as [id number] [address] 2021-01-17 2021-01-17 [facility]constantine [facility] 1.2.840.114 [id number] Univers 00:00:00 00:00:00 [facility] 350.1.13.10 it y of [place] 4.2.7.2.686 Neil as Professio [phone] [address] One 2021-01-15 2021-01-15 [facility] 1.2.840.114 [id number] Univers 00:00:00 00:00:00 [facility] 350.1.13.10 it y of [place] 4.2.7.2.686 Neil as Professio [phone] [address] One 2020-12-28 2020-12-28 [facility]constantine [facility] 1.2.840.114 [id number] Univers 00:00:00 00:00:00 [facility] 350.1.13.10 it y of [place] 4.2.7.2.686 Neil as Professio [id number] [address] One 2020-12-24 2020-12-24 Orders Doctor FISH 1.2.840.114 [id number] Univers 00:00:00 00:00:00 Only Unassigned, NAEEM 350.1.13.[address] [facility] 4.2.7.2.686 Neil as [phone] [facility] 009 Critz 2020-12-18 2020-12-18 Telephone Team, [facility] FISH 1.2.840.114 [id number] Univers 00:00:00 00:00:00 Health NAEEM 350.1.13.10 it y of Maintenance HOSPITAL 4.2.7.2.686 [place] [phone] [facility] 082 Critz 2020-12-17 2020-12-17 [facility] 1.2.840.114 [id number] Univers 00:00:00 00:00:00 [facility] 350.1.13.10 it y of [place] 4.2.7.2.686 Neil as Professio [phone] [address] 2020-11-25 2020-11-25 [facility] 1.2.840.114 [id number] Univers 00:00:00 00:00:00 [facility] 350.1.13.10 it y of [place] 4.2.7.2.686 Neil as Professio [phone] [address] One 2020-11-19 2020-11-20 Outpatient nullFlavo MG Multi 46 [id number] Memoria 15:20:00 04:59:59 r Specialty 00 l [facility] 2020-11-19 2020-11-20 Outpatient nullFlavo MG Multi 46 [id number] Memoria 15:20:00 04:59:59 r Specialty 00 l [facility] 2020-11-19 2020-11-19 Outpatient Richi [facility] [id number] 10:20:00 23:59:59 Licha L 00 2020-11-19 2020-11-19 Outpatient MHIE IE [id number] Memoria 10:20:00 10:20:00 00 l Donald 2020-11-19 2020-11-19 [facility] 1.2.840.114 [id number] Univers 00:00:00 00:00:00 [facility] 350.1.13.10 it y of [place] 4.2.7.2.686 Neil as Professio [phone] [address] Office [facility] One 2020-10-22 2020-10-22 Orders Doctor FISH 1.2.840.114 [id number] Univers 00:00:00 00:00:00 Only Unassigned, NAEEM 350.1.13.[address] [facility] 4.2.7.2.686 Neil as [phone] [address] 2020-10-20 2020-10-20 [facility] 1.2.840.114 [id number] Univers 00:00:00 00:00:00 [facility] 350.1.13.10 it y of [place] 4.2.7.2.686 Neil as Professio [phone] [address] One 2020-09-25 2020-09-25 Outpatient R MARIE, [facility] [id number] Univers 11:20:00 11:20:00 DEVIKA ity of [facility] 2020-09-25 2020-09-25 [facility] 1.2.840.114 [id number] Univers 00:00:00 00:00:00 [facility] 350.1.13.10 it y of [place] 4.2.7.2.686 Neil as Professio [phone] [address] One 2020-09-21 2020-09-21 Office [facility] 1.2.840.114 [id number] Univers 13:50:06 14:05:06 Visit [facility] 350.1.13.10 it y of [place] 4.2.7.2.686 Neil as Professio [phone] [address] Office Building One 2020-09-21 2020-09-21 Outpatient R RUBA [facility] [id number] Univers 14:00:00 14:00:00 CAROLINA ity [facility] 2020-09-14 2020-09-14 [facility] 1.2.840.114 [id number] Univers 00:00:00 00:00:00 [facility] 350.1.13.10 it y of [place] 4.2.7.2.686 Neil as Professio [phone] [address] Office Building One 2020-09-04 2020-09-04 Outpatient R MARIE [facility] [id number] Univers 16:30:00 16:30:00 DEVIKA ity [facility] 2020-08-22 2020-08-22 Orders Doctor FISH 1.2.840.114 [id number] Univers 00:00:00 00:00:00 Only Unassigned, NAEEM 350.1.13.[address] [facility] 4.2.7.2.686 Neil as [phone] [address] 2020-07-12 2020-07-12 [facility] 1.2.840.114 [id number] Univers 00:00:00 00:00:00 [facility] 350.1.13.10 it y of [place] 4.2.7.2.686 Neil as Professio [phone] [address] Office Building One 2020-07-12 2020-07-12 [facility] 1.2.840.114 [id number] 00:00:00 00:00:00 [facility] 350.1.13.10 [place] 4.2.7.2.686 Professio [phone] [address] One 2020-07-04 2020-07-04 [facility] 1.2.840.114 [id number] Univers 00:00:00 00:00:00 Carolina Cherry 350.1.13.10 i ty of [place]2.7.2.[place] [phone] [address] 2020-07-04 2020-07-04 Telephone [facility] 1.2.840.114 [id number] 00:00:00 00:00:00 [place] 350.1.13.10 amy [place] 4.2.7.2.686 Professio [phone] [address] 2020-04-13 2020-04-13 [facility] 1.2.840.114 [id number] Univers 00:00:00 00:00:00 [facility] 350.1.13.10 it y of [place] 4.2.7.2.686 Neil as Professio [phone] [address] 2020-04-13 2020-04-13 [facility] 1.2.840.114 [id number] 00:00:00 00:00:00 [facility] 350.1.13.10 [place] 4.2.7.2.686 Professio [phone] [address] 2020-04-10 2020-04-10 [facility] 1.2.840.114 [id number] Univers 00:00:00 00:00:00 [facility] 350.1.13.10 it y of [place] 4.2.7.2.686 Neil as Professio [phone] [address] Office [facility] 2020-04-10 2020-04-10 Orders Doctor FISH 1.2.840.114 [id number] Univers 00:00:00 00:00:00 Only Unassigned, NAEEM 350.1.13.[address] [facility] 4.2.7.2.686 Neil as [phone] [address] 2020-04-10 2020-04-10 Telephone [facility] 1.2.840.114 [id number] 00:00:00 00:00:00 [facility] 350.1.13.10 [place] 4.2.7.2.686 Professio [phone] [address]al [address] Office Building One 2020-04-10 2020-04-10 Orders Doctor FISH 1.2.840.114 [id number] 00:00:00 00:00:00 Only Unassigned, NAEEM 350.1.13.10 [facility] 4.2.7.2.686 [phone] 009 2020-03-28 2020-03-28 [facility] 1.2.840.114 [id number] [facility] 00:00:00 00:00:00 [facility] 350.1.13.10 it y of [place] 4.2.7.2.686 Neil as Professio [phone] [address] Office [facility] One 2020-03-28 2020-03-28 [facility] 1.2.840.114 [id number] 00:00:00 00:00:00 [facility] 350.1.13.10 [place] 4.2.7.2.686 Professio [phone] [place] [address] Office Building One 2020-02-13 2020-02-13 [facility] 1.2.840.114 [id number] [facility] 00:00:00 00:00:00 [facility] 350.1.13.10 it y of [place] 4.2.7.2.686 Neil as Professio [phone] [address] Office [facility] One 2020-02-13 2020-02-13 [facility] 1.2.840.114 [id number] 00:00:00 00:00:00 [facility] 350.1.13.10 [place] 4.2.7.2.686 Professio [phone] [place] [address] Office Building One 2019-12-22 2019-12-22 Outpatient Leticia YEH [facility] [id number] Univers 08:15:00 08:15:00 CAROLINA mclean [facility] 2019-12-21 2019-12-21 Outpatient Leticia YEH [facility] [id number] Univers 09:15:00 09:15:00 CAROLINA mclean [facility] 2019-12-21 2019-12-21 [facility] 1.2.840.114 [id number] [facility] 07:59:17 08:14:17 ne Visit Carolina Cherry 350.1.13.10 ity of [place]2.7.2.[place] [phone] [address] 2019-12-21 2019-12-21 [facility] 1.2.840.114 [id number] 07:59:17 08:14:17 ne Visit Carolina Cherry 350.1.13.10 Ed[place] 4.2.7.2.686 Professio [phone] [address] 2019-12-15 2019-12-15 [facility] 1.2.840.114 [id number] [facility] 00:00:00 00:00:00 [facility] 350.1.13.10 it y of [place] 4.2.7.2.686 Neil as Professio [phone] [address] 2019-12-15 2019-12-15 [facility] 1.2.840.114 [id number] 00:00:00 00:00:00 [facility] 350.1.13.10 [place] 4.2.7.2.686 Professio [phone] [address] 2019-10-03 2019-10-03 Telephone [facility] 1.2.840.114 [id number] [facility] 00:00:00 00:00:00 [facility] 350.1.13.10 it y of [place] 4.2.7.2.686 Neil as Professio [phone] [address] 2019-10-03 2019-10-03 Telephone [facility] 1.2.840.114 [id number] 00:00:00 00:00:00 [facility] 350.1.13.10 [place] 4.2.7.2.686 Professio [phone] [place] [address] Office [facility] 2019-09-22 2019-09-22 Orders Doctor WHITTEN 1.2.840.114 [id number] Univers 00:00:00 00:00:00 Only Unassigned, NAEEM 350.1.13.[address] [facility] 4.2.7.2.686 Neil as [phone] [facility] 009 Crit[place] 2019-09-22 2019-09-22 Orders Doctor FISH 1.2.840.114 [id number] 00:00:00 00:00:00 Only Unassigned, NAEEM 350.1.13.10 [facility] 4.2.7.2.686 [phone] [facility] 2019-09-21 2019-09-21 Office [facility] 1.2.840.114 [id number] [facility] 07:55:58 08:34:32 Visit [facility] 350.1.13.10 it y of [facility] 4.2.7.2.686 Neil as Professio [phone] [place] [address] Office [facility] 2019-09-21 2019-09-21 Office [facility] 1.2.840.114 [id number] 07:55:58 08:34:32 Visit [facility]1.13.10 [facility] [place] 4.2.7.2.686 Professio [phone] [place] [address] Office [facility] 2019-09-21 2019-09-21 Outpatient R [facility] [id number] [facility] 08:00:00 08:00:00 CAROLINA ity of [facility] 2019-08-04 2019-08-05 Emergency Rosie Odom 1.2 .840.114 [id number] Univers 19:04:07 15:50:00 Mary Dietrich Naeem 350.1.1 3.10 ity of [facility] 4.2.7.2.686 Neil as [phone] [facility] 095 Crit[place] 2019-08-01 2019-08-01 Emergency Keyonna Baltazar [facility] 1.2.840. 114 [id number] Univers 16:00:05 21:48:00 Jose [place] 350.1.13.10 ity of [place] 4.2.7.2.686 [facility] [phone] [address] 2019-08-01 2019-08-01 Orders Doctor FISH 1.2.840.114 [id number] Univers 00:00:00 00:00:00 Only Unassigned, NAEEM 350.1.13.[address] [facility] 4.2.7.2.686 Neil as [phone] [address] 2019-03-16 2019-03-16 [facility] 1.2.840.114 [id number] Univers 14:45:59 15:20:27 Visit [facility] 350.1.13.10 it y of [place] 4.2.7.2.686 Neil as Professio [phone] [place] [facility] [address] Office Building One 2019-03-15 2019-03-15 Emergency [facility] 1.2.623.598 [id number] Univers 15:14:17 18:22:00 Trisha Leticia Dilip 350.1.13.10 i ty of [place].7.2.[place] [phone] [address] 2019-03-15 2019-03-15 Orders Doctor FISH 1.2.840.114 [id number] Univers 00:00:00 00:00:00 Only Unassigned, NAEEM 350.1.13.[address] [facility] 4.2.7.2.686 Neil as [phone] [address] 2016-11-07 2016-11-07 Emergency [facility] [id number] Memoria 16:41:00 18:47:00 r [place] 00 [facility] 2016-11-07 2016-11-07 Emergency [facility] [id number] Memoria 16:41:00 18:47:00 r [place] 00 [facility] 2016-11-07 2016-11-07 Outpatient [facility] [id number] 11:41:00 13:47:00 Hafsa A 00 Results Test Description Test Time Test Comments Results Result Comments Source Complete Metabolic Panel 2022-04-18 12:16:41 Test Item Value Reference Range Interpretation Comme nts NA (test code = 5340976752) 139 mmol/L 135-145 K (test code = 2887312928) 4.6 mmol/L 3.5-5 CL (test code = 0820257339) 105 mmol/L 98-108 CO2 TOTAL (test code = 8925112188) 21 mmol/L 23-31 L AGAP (test code = 6003609295) 2-16 BUN (test code = 2122144652) 34 mg/dL 7-23 H GLUCOSE (test code = 1668782109) 163 mg/dL 70-110 H CREATININE (test code = 1.50 mg/dL 0.6-1.25 H 3777801192) TOTAL BILI (test code = 0.8 mg/dL 0.1-1.7 8941450341) CALCIUM (test code = 8124768106) 10.3 mg/dL 8.6-10.6 T PROTEIN (test code = 3888658064) 7.1 g/dL 6.3-8.2 ALBUMIN (test code = 2803481506) 4.6 g/dL 3.5-5 ALK PHOS (test code = 4868949243) 63 U/L 34-122 ALTv (test code = 1742-6) 34 U/L 5-50 AST(SGOT) (test code = 6574725562) 30 U/L 13-40 eGFR (test code = 5913157210) mL/min/1.73m2 ERNST (test code = ERNST) Association of Glomerular Filtration Rate (GFR) and Staging of Kidney Disease* + +-------- + ------+| GFR (mL/min/1.73 m2) ?| With Kidney Damage ?| ?Without Kidney Damage+ +-- + +| ?>90 ?| ?Stage one ?| ? Normal ?+ +------- + -------+| ?60-89 ?| ?Stage two ?| ? Decreased GFR ? + +-------- + ------+| ?30-59 ?| ?Stage three ?| ? Stage three ? + +-------- + ------+| ?15-29 ?| ?Stage four ? | ? Stage four ?+ +------- + -------+| ?<15 (or dialysis) ? ?| ?Stage five ? | ? Stage five ?+ +------- + -------+ *Each stage assumes the associated GFR level has been in effect for at least three months. ?Stages 1 to 5, with or without kidney disease, indicate chronic kidney disease. Notes: Determination of stages one and two (with eGFR >59mL/min/1.73 m2) requires estimation of kidney damage for at least three months as defined by structural or functional abnormalities of the kidney, manifested by either:Pathological abnormalities or Markers of kidney damage (including abnormalities in the composition of the blood or urine or abnormalities in imaging tests). Lab Interpretation (test code = Abnormal 66063-9) [facility], [id number] 12:16:21 Test Item Value Reference Range Interpretation Comments LIPASE (test code = 8524293361) 432 U/L 0-220 H Lab Interpretation (test code = Abnormal 32957-4) [facility] CenterCBC with [id number] 12:02:41 Test Item Value Reference Range Interpretation Comments WBC (test code = See_Comment H [Automated 6390-2) message] The sy stem which generated this result transmitted reference range : 4.20 - 10.70 10*3/?L. The reference range was not used to interpret this result as normal/abnormal . RBC (test code = See_Comment H [Automated 199-8) message] The sy stem which generated this result transmitted reference range : 4.26 - 5.52 10*6/?L. The reference range was not used to interpret this result as normal/abnormal . HGB (test code = 16.6 g/dL 12.2-16.4 H 718-7) HCT (test code = 49.2 % 38.4-49.3 4544-3) MCV (test code = 86.6 fL 81.7-95.6 787-2) MCH (test code = 29.2 pg 26.1-32.7 785-6) MCHC (test code = 33.7 g/dL 31.2-35 786-4) RDW-SD (test code = 41.6 fL 38.5-51.6 37516-8) RDW-CV (test code = 13.2 % 12.1-15.4 788-0) PLT (test code = See_Comment [Automated 777-3) message] The sy stem which generated this result transmitted reference range : 150 - 328 10*3/ ?L. The reference r shakeel was not used to interpret this result as normal/abnormal . MPV (test code = 11.8 fL 9.8-13 30688-1) NRBC/100 WBC (test See_Comment [Automat ed code = 1688634938) message] The system which generated this result transmitted reference range : 0.0 - 10.0 /100 WBCs. The refer ence range was not u sed to interpret th is result as normal/abnormal . NRBC x10^3 (test code See_Comment [Auto mated = 4090598791) message] The s ystem which generated this result transmitted reference range : 10*3/?L. The reference range was not used to interpret this result as normal/abnormal . GRAN MAT (NEUT) % 69.5 % (test code = 770-8) IMM GRAN % (test code 0.40 % = 3177761812) LYMPH % (test code = 20.4 % 736-9) MONO % (test code = 6.7 % 5905-5) EOS % (test code = 2.7 % 713-8) BASO % (test code = 0.3 % 706-2) GRAN MAT x10^3(ANC) 8.87 10*3/uL 1.99-6.95 H (test code = 5127461255) IMM GRAN x10^3 (test 0.05 10*3/uL 0-0.06 code = 4941613545) LYMPH x10^3 (test code 2.60 10*3/uL 1.09-3.23 = 731-0) MONO x10^3 (test code 0.85 10*3/uL 0.36-1.02 = 742-7) EOS x10^3 (test code = 0.35 10*3/uL 0.06-0.53 711-2) BASO x10^3 (test code 0.04 10*3/uL 0.01-0.09 = 704-7) Lab Interpretation Abnormal (test code = 62387-5) [facility])2019-08-05 20:46:00 Test Item Value Reference Range Interpretation Comments POCT GLU (test code = 218 mg/dL 70-110 H 9504322247) ERNST (test code = ERNST) Notified Provider Lab Interpretation (test Abnormal code = 52251-4) [facility] CenterPROTHROMBIN TIME / [id number] 18:25:00 Test Item Value Reference Range Interpretation Comments PROTIME PATIENT (test See_Comment [Auto mated message] code = 5964-2) The system Quibly generated this result transmitted ref erence range: 10.1 - 1 2.6 Seconds. The re ference range was not u sed to interpret this result as normal/abnor mal. INR (test code = 6301-6) Nor mal INR <1.1; Warfarin Therap eutic range 2.0 to 3. 0 or 2.5 to 3.5, dep ending upon the indica tions. Lab Interpretation (test Normal code = 40410-9) [facility] CenteraPTT2020-01-24 18:25:00 Test Item Value Reference Range Interpretation Comments APTT Patient (test code = See_Comment [ Automated message] 3173-2) The system vitaMedMD h generated this result transmitted ref erence range: 26 - 36 Seconds. The re ference range was not u sed to interpret this result as normal/abnor mal. Lab Interpretation (test Normal code = 80407-4) [facility] GLUCOSE (AUTOMATED)2019-08-05 16:19:00 Test Item Value Reference Range Interpretation Comments POCT GLU (test code = 1395269951) 295 mg/dL 70-110 H Lab Interpretation (test code = Abnormal 55358-1) [facility] GLUCOSE (AUTOMATED)2019-08-05 05:58:00 Test Item Value Reference Range Interpretation Comments POCT GLU (test code = 1968160072) 268 mg/dL 70-110 H Lab Interpretation (test code = Abnormal 30299-8) [facility] CenterXR CHEST 2 [id number] 03:23:27 Findings/Impression: * ?The right lung is clear. Left lung base atelectasis is noted. * ?Moderate volume left-sided pleural effusion is present. No pneumothoraxis identified. * ?The cardiac silhouette is normal in size. * ?The osseous structures are unchanged. Preliminary Report Dictated by Resident: Joseph Farrell ?MD. Aida, have reviewed this study and agree withthe above report.XR CHEST 2 VW History: chest pain pleural effusion Comparison: Sequential imaging from 2016 through 2018 [facility], Radiant Results Inft User - 08/04/2019 9:24 PM CSTXR CHEST 2 VWHistory: chest pain pleural effusion Comparison: Sequential imaging from 2016 through 2018IMPRESSIONFindings/Impression:* Theright lung is clear. Left lung base atelectasis is noted.* Moderate volume left-sided pleural effusion is present. No pneumothoraxis identified.* The cardiac silhouette is normal in size.* The osseous structures are unchanged.Preliminary Report Dictated by Resident: Joseph Haider MD., have reviewed this study and agree withthe above report.[facility] CenterTROPONIN I 2019-08-05 03:13:00 Test Item Value Reference Range Interpretation Comments TROPONIN I (test 0.004 ng/mL See_Comment [Automated code = 9478953361) message] The system which generated this result transmitted reference range : <=0.034. The reference range was not used to interpret this result as normal/abnormal . ERNST (test code = Equal or Less than ERNST) 0.034 ng/ml---Normal ?Note: Cardiac troponin begins to rise 3-4 hours after the onset of ischemia. Repeat in 4-6 hours if the sample was drawn within 3-4 hours of the onset of the symptom and found normal. Between 0.035 and 0.120 ng/mL--- Borderline. Questionable myocardial injury or necrosis ? ?Note: Serial measurement may be necessary to confirm or exclude the diagnosis of myocardial injury or necrosis; Clinical correlation (symptoms, EKGs, imaging studies, and others) required; Repeat in 4-6 hours if clinically indicated. ? Equal or Higher than 0.121 ng/mL---Abnormal. Myocardial Injury or Necrosis Likely ? Biotin has been reported to cause a negative bias, interpret results relative to patient's use of biotin. ? Lab Interpretation Normal (test code = 46208-5) [facility] CenterN-TERMINAL [id number] 03:05:00 Test Item Value Reference Range Interpretation Comments NT-proBNP (test code 101 pg/mL See_Comment [Autom ated = 4827690753) message] The system which generated this result transmitted reference range : <=125. The reference range was not used to interpret this result as normal/abnormal . ERNST (test code = ERNST) Biotin has been reported to cause a negative bias, interpret results relative to patient's use of biotin. Lab Interpretation Normal (test code = 53808-8) [facility] METABOLIC PANEL (NA, K, CL, CO2, GLUCOSE, BUN, CREATININE, CA)2019-08-05 02:57:00 Test Item Value Reference Range Interpretation Comments NA (test code = 137 mmol/L 135-145 1377132868) K (test code = 4.8 mmol/L 3.5-5 5092413021) CL (test code = 100 mmol/L 98-108 4995182283) CO2 TOTAL (test code = 27 mmol/L 23-31 3956576521) AGAP (test code = 2-16 6226736370) BUN (test code = 15 mg/dL 7-23 7552005136) GLUCOSE (test code = 254 mg/dL 70-110 H 4037599152) CREATININE (test code = 1.05 mg/dL 0.6-1.25 6749713719) CALCIUM (test code = 10.1 mg/dL 8.6-10.6 4288742700) eGFR Calculation mL/min/1.73m2 (Non-) (test code = 3918799019) eGFR Calculation mL/min/1.73m2 () (test code =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
[2023-01-24] MEDS ORDERED: NA CHLORIDE 0.9% 1,000 ML ONE (19:25)
[2023-01-24 19:45] LABS: Absolute Lymphocytes (CBC) 2.7 K/uL (0.7-4.9); Hematocrit 46.8 % (39.6-49.0); Lymphocytes % 25.5 % (15.3-44.8); MCV 88.7 fL (80-100); MPV 10.2 fL (7.6-11.3); RBC Red Blood Cell Count 5.27 M/uL (4.33-5.43)
[2023-01-24 20:03] LABS: Albumin 3.8 g/dL (3.4-5.0); Bilirubin Total 0.6 mg/dL (0.2-1.0); Magnesium 2.9 mg/dL (1.6-2.4); Potassium 4.1 mEq/L (3.5-5.1); Protein, Total 7.5 g/dL (6.4-8.2); Troponin High Sensitivity 6.9 pg/mL (<58.9)
--- NOTE | 2023-01-24 20:27 | ER ---
Nurse's Notes [facility] Name: Abbi Campos Age: 62 yrs Sex: Male : 1960 Arrival Date: 01/24/2023 Time: 18:55 Bed 18 [facility] MD: Diagnosis: Other acute kidney failure Presentation: 01/24 19:01 Chief complaint: Extreme thirst, fatigue, and dizziness after working out in the heat hb for the last few days. Coronavirus screen: At this time, the client does not indicate any symptoms associated with coronavirus-19. Ebola Screen: No symptoms or risks identified at this time. Initial Sepsis Screen: Does the patient meet any 2 criteria? No. Patient's initial sepsis screen is negative. Does the patient have a suspected source of infection? No. Patient's initial sepsis screen is negative. Risk Assessment: Do you want to hurt yourself or someone else? Patient reports no desire to harm self or others. Onset of symptoms was January 22, 2023. 19:01 Method Of Arrival: Ambulatory hb 19:01 Acuity: JAYLYN 3 hb Historical: - Allergies: 19:02 tramadol; hb - PMHx: 19:02 CVA; Diabetes - NIDDM; Hypertension; Myocardial infarction; hb - Immunization history:: Adult Immunizations unknown. - Family history:: not pertinent. - Social history:: Smoking status: unknown. Screenin:[address] [facility] ED Fall Risk Assessment (Adult) History of falling in the last 3 months, ha1 including since admission No falls in past 3 months (0 pts) Confusion or Disorientation No (0 pts) Intoxicated or Sedated No (0 pts) Impaired Gait No (0 pts) Mobility Assist Device Used No (0 pt) Altered Elimination No (0 pt) Score/Fall Risk Level 0 - 2 = Low Risk Oriented to surroundings, Maintained a safe environment, Educated pt \\T\\ family on fall prevention, incl call for assistance when getting out of bed. 20:44 Abuse screen: Denies threats or abuse. Denies injuries from another. Nutritional ha1 screening: No deficits noted. Tuberculosis screening: No symptoms or risk factors identified. Assessment: 19:25 General: Appears comfortable, Behavior is calm, cooperative. Pain: Denies pain. Neuro: ha1 Level of Consciousness is awake, alert, obeys commands, Oriented to person, place, time, situation. Neuro: Reports weakness generalized. states " I think I am dihydrated because I have been working under a lot of heat". Cardiovascular: Patient's skin is warm and dry. Respiratory: Airway is patent Respiratory effort is even, unlabored, Respiratory pattern is regular, symmetrical. GI: No signs and/or symptoms were reported involving the gastrointestinal system. Derm: Skin is pink, warm \\T\\ dry. Musculoskeletal: Circulation, motion, and sensation intact. Range of motion: intact in all extremities. 20:25 Reassessment: Patient and/or family updated on plan of care and expected duration. Pain ha1 level reassessed. Patient is alert, oriented x 3, equal unlabored respirations, skin warm/dry/pink. Patient states symptoms have improved. 20:57 Reassessment: reports given to BRICE Franco. ha1 Vital Signs: 19:01 BP 131 / 86; Pulse 95; Resp 18; Temp 98.1; Pulse Ox 100% on R/A; Weight 86.18 kg; hb Height 5 ft. 8 in. ; Pain 0/10; 19:25 BP 125 / 67; Pulse 79; Resp 15 S; Pulse Ox 98% on R/A; ha1 20:25 BP 146 / 85; Pulse 76; Resp 18 S; Pulse Ox 99% on R/A; ha1 21:25 BP 144 / 89; Pulse 86; Resp 18 S; Pulse Ox 99% on R/A; ha1 19:01 Body Mass Index 28.89 (86.18 kg, 172.72 cm) hb 19:01 Pain Scale: Adult hb ED Course: 18:58 Patient arrived in ED. ts1 18:59 Kilo Gabriel MD is Attending Physician. rt 19:02 Triage completed. hb 19:02 Arm band placed on. hb 19:13 Pascale Gray, BRICE is Primary Nurse. ha1 19:20 Patient has correct armband on for positive identification. Placed in gown. Bed in low ha1 position. Call light in reach. Side rails up X 1. 19:39 Magnesium Sent. ha1 19:39 CPK Sent. ha1 19:39 Troponin High Sensitivity Sent. ha1 19:39 CMP Sent. ha1 19:39 CBC with Diff Sent. ha1 19:45 Inserted saline lock: 22 gauge in right antecubital area, using aseptic technique. ha1 Blood collected. 20:26 Dre Saucedo is Hospitalizing Provider. rt 20:45 No provider procedures requiring assistance completed. Patient admitted, IV remains in ha1 place. 20:46 Provided Education on: need for admit . ha1 Administered Medications: 19:39 Drug: NS 0.9% IV 1000 ml Route: IV; Rate: 1 bolus; Site: right antecubital; ha1 21:39 Follow up: Response: No adverse reaction; IV Status: Completed infusion; IV Intake: ha1 1000ml Medication: 20:44 VIS not applicable for this client. ha1 Intake: 21:39 IV: 1000ml; Total: 1000ml. ha1 Outcome: 20:26 Decision to Hospitalize by Provider. rt 20:45 Condition: stable ha1 21:37 Admitted to Med/surg accompanied by tech, via wheelchair, room 209, with chart, Report ha1 called to BRICE Franco 21:37 Discharge instructions given to patient, family, Instructed on the need for admit, Demonstrated understanding of instructions. 21:39 Patient left the ED. 1 Signatures: Sandra Pena, RN BRICE Pascale Gray RN RN ha1 Kilo Gabriel MD MD rt Daisy Adams PAS PAS ts1
--- NOTE | 2023-01-24 20:27 | EDPHYS ---
Physician Documentation [facility] Name: Abbi Campos Age: 62 yrs Sex: Male : 1960 Arrival Date: 01/24/2023 Time: 18:55 Bed 18 Private MD: ED Physician Kilo Gabriel HPI: 01/24 19:09 This 62 yrs old Male presents to ER via Ambulatory with complaints of Possible rt Heat exhaustion. 19:09 Patient presents to the ED with reported heat exhaustion. He is working on the heat 2 rt days ago, states that he got real dizzy at that time. The patient states that since then, he has had a strange taste in his mouth. Reports somewhat decreased urination. The patient states that his blood sugar was elevated at 240 but he states is not typical for him. Denies other acute complaints at this time, symptoms are moderate in severity, no other aggravating or alleviating factors.. Historical: - Allergies: 19:02 tramadol; hb - PMHx: 19:02 CVA; Diabetes - NIDDM; Hypertension; Myocardial infarction; hb - Immunization history:: Adult Immunizations unknown. - Family history:: not pertinent. - Social history:: Smoking status: unknown. ROS: 19:09 Constitutional: Negative for fever, chills, and weight loss, Cardiovascular: Negative rt for chest pain, palpitations, and edema, Respiratory: Negative for shortness of breath, cough, wheezing, and pleuritic chest pain, Abdomen/GI: Negative for abdominal pain, nausea, vomiting, diarrhea, and constipation, Skin: Negative for injury, rash, and discoloration, Psych: Negative for depression, anxiety, suicide ideation, homicidal ideation, and hallucinations. 19:09 Neuro: Positive for near syncope, Negative for syncope. Exam: 19:09 Constitutional: This is a well developed, well nourished patient who is awake, alert, rt and in no acute distress. Head/Face: Normocephalic, atraumatic. Chest/axilla: Normal chest wall appearance and motion. Nontender with no deformity. No lesions are appreciated. Cardiovascular: Regular rate and rhythm with a normal S1 and S2. No gallops, murmurs, or rubs. Normal PMI, no JVD. No pulse deficits. Respiratory: Lungs have equal breath sounds bilaterally, clear to auscultation and percussion. No rales, rhonchi or wheezes noted. No increased work of breathing, no retractions or nasal flaring. Abdomen/GI: Soft, non-tender, with normal bowel sounds. No distension or tympany. No guarding or rebound. No evidence of tenderness throughout. Skin: Warm, dry with normal turgor. Normal color with no rashes, no lesions, and no evidence of cellulitis. MS/ Extremity: Pulses equal, no cyanosis. Neurovascular intact. Full, normal range of motion. Neuro: Awake and alert, GCS 15, oriented to person, place, time, and situation. Cranial nerves II-XII grossly intact. Motor strength 5/5 in all extremities. Sensory grossly intact. Cerebellar exam normal. Normal gait. Psych: Awake, alert, with orientation to person, place and time. Behavior, mood, and affect are within normal limits. 19:09 ENT: Dry mucous membranes. 20:27 ECG was reviewed by the Attending Physician. rt Vital Signs: 19:01 BP 131 / 86; Pulse 95; Resp 18; Temp 98.1; Pulse Ox 100% on R/A; Weight 86.18 kg; hb Height 5 ft. 8 in. ; Pain 0/10; 19:25 BP 125 / 67; Pulse 79; Resp 15 S; Pulse Ox 98% on R/A; ha1 20:25 BP 146 / 85; Pulse 76; Resp 18 S; Pulse Ox 99% on R/A; ha1 21:25 BP 144 / 89; Pulse 86; Resp 18 S; Pulse Ox 99% on R/A; ha1 19:01 Body Mass Index 28.89 (86.18 kg, 172.72 cm) hb 19:01 Pain Scale: Adult hb MDM: 19:03 Patient medically screened. rt 22:27 Differential Diagnosis Dehydration, rhabdomyolysis, acute renal failure. Data reviewed: rt vital signs, nurses notes, lab test result(s), EKG. Consideration of Admission/Observation Patient was admitted/placed on observation. Management of patient was discussed with the following: Hospitalist: Agrees to admit. I considered the following discharge prescriptions or medication management in the emergency department Medications were administered in the Emergency Department. See MAR. Counseling: I had a detailed discussion with the patient and/or guardian regarding: the historical points, exam findings, and any diagnostic results supporting the discharge/admit diagnosis, lab results, radiology results, the need for further work-up and treatment in the hospital. Response to treatment: the patient's symptoms have mildly improved after treatment. 01/24 19:08 Order name: CBC with Diff; Complete Time: 20:16 rt 01/24 19:08 Order name: CMP; Complete Time: 20:16 rt 01/24 19:08 Order name: Troponin High Sensitivity; Complete Time: 20:16 rt 01/24 19:08 Order name: CPK; Complete Time: 20:16 rt 01/24 19:08 Order name: Magnesium; Complete Time: 20:16 rt 01/24 19:08 Order name: EKG; Complete Time: 19: rt 01/24 19:08 Order name: EKG - Nurse/Tech; Complete Time: 19:58 rt EC: Rate is 75 beats/min. Rhythm is regular, Normal Sinus Rhythm with No ectopy. QRS [place] rt is Normal. [place] interval is normal. QRS interval is normal. QT interval is normal. No Q waves. T waves are Normal. No ST changes noted. Administered Medications: 19:39 Drug: NS 0.9% IV 1000 ml Route: IV; Rate: 1 bolus; Site: right antecubital; ha1 21:39 Follow up: Response: No adverse reaction; IV Status: Completed infusion; IV Intake: ha1 1000ml Disposition Summary: 01/24/23 20:26 Hospitalization Ordered Hospitalization Status: Observation rt Provider: Dre Saucedo rt Location: Telemetry/MedSurg (observation) rt Condition: Stable rt Problem: new rt Symptoms: have improved rt Bed/Room Type: Standard rt Room Assignment: 209(01/24/23 20:36) kd3 Diagnosis - Other acute kidney failure rt Forms: - Medication Reconciliation Form rt - SBAR form rt Signatures: Dispatcher [employer] Sandra Garcia RN RN hb Doucette, Kyli RN RN kd3 Pascale Gray RN RN ha1 Kilo Gabriel MD MD rt Corrections: (The following items were deleted from the chart) 20:36 20:26 rt kd3
[2023-01-24] MEDS ORDERED: ONDANSETRON 4 MG/2 ML VIAL IV PRN (20:35)
[2023-01-24] MEDS ORDERED: ACETAMINOPHEN 500 MG TAB PO PRN (20:35)
--- NOTE | 2023-01-24 20:59 | P.HP ---
Certification for Inpatient Patient admitted to: Observation With expected LOS: <2 Midnights Patient will require the following post-hospital care: None Practitioner: I am a practitioner with admitting privileges, knowledge of patient current condition, hospital course, and medical plan of care. Services: Services provided to patient in accordance with Admission requirements found in Title 42 Section 412.3 of the Code of Federal Regulations Patient History Date of Service: 01/24/23 Reason for admission: dehydration History of Present Illness: 62-year-old male with a past medical history of yei-auqsfec-xjghqcfdo diabetes mellitus, hypertension, CVA, MT with 6 PCI, on Brilinta presents to the emergency room for dehydration. He reports excessive sweating for the past 2 or 3 days, he reports yesterday his blood sugar was elevated reports taking extra metformin. He reports to the emergency room for excessive sweating, foot cramping x2 days. He denies brown urine, chest pain, abdominal pain, flank pain, dysuria, urinary frequency. medical records reviewed Plan to admit for observation, for acute kidney injury, dehydration CMP sodium 131, elevated BUN and creatinine BUN 82, creatinine 2.82, magnesium 2.9 elevated, estimated GFR is 25, CBC is unremarkable, troponin is normal at 6.9, CK is 252, Allergies No Known Allergies Allergy (Verified 12/04/12 10:32) Home Medications: Glimepiride [Amaryl*] 2 mg PO DAILY 12/12/12 Losartan Potassium [Cozaar] 100 mg PO DAILY 12/12/12 Metformin HCl [Glucophage*] 500 mg PO BID 12/12/12 hydroCHLOROthiazide [Hydrochlorothiazide*] 25 mg PO DAILY 12/12/12 Aspirin [Aspirin EC 81 MG] 81 mg PO DAILY #0 tablet. 12/13/12 Clopidogrel Bisulfate [Plavix*] 75 mg PO DAILY #0 tablet 12/13/12 - Past Medical/Surgical History Diabetic: Yes -: htn -: History of MT -: 6 PCI on Brilinta -: History of CVA -: Rps-onayeuq-mqzynhmyh diabetes mellitus -: hernia -: 6 PCI - Social History Smoking Status: Never smoker Alcohol use: No CD- Drugs: No Caffeine use: Yes Review of Systems 10-point ROS is otherwise unremarkable Physical Examination - Physical Exam General: Alert, In no apparent distress, Oriented x3 HEENT: Atraumatic, Normocephalic, PERRLA Neck: Supple, 2+ carotid pulse no bruit, JVD not distended Respiratory: Clear to auscultation bilaterally, Normal air movement, Diminished Cardiovascular: No edema, Normal pulses, Regular rate/rhythm Capillary refill: <2 Seconds Gastrointestinal: Normal bowel sounds, Soft and benign, Non-distended Musculoskeletal: No clubbing, No swelling Integumentary: No rashes, No breakdown Neurological: Normal speech, Normal strength at 5/5 x4 extr, Cranial nerves 3-12 intact - Studies Laboratory Data (last 24 hrs) 01/24/23 19:38: Sodium 131 L, Potassium 4.1, BUN 82 H, Creatinine 2.82 H, Glucose 162 H, Magnesium 2.9 H, Total Bilirubin 0.6, AST 28, ALT 40, Alkaline Phosphatase 80 01/24/23 19:38: WBC 10.80, Hgb 15.3, Hct 46.8, Plt Count 180 Assessment and Plan - Plan Assessment plan Dehydration Hyponatremia Acute on chronic kidney injury History of essential hypertension unknown control Udi-dpluowu-lttxfjasa diabetes mellitus Hyperlipidemia DVT prophylaxis Assessment plan Dehydration Telemetry IV fluids, trend electrolytes replace as needed Hyponatremia CMP sodium 131, normal saline at 75 Acute on chronic kidney injury elevated BUN and creatinine BUN 82, creatinine 2.82, estimated GFR is 25, History of essential hypertension unknown control Jpi-qglbssk-quvkqcjdy diabetes mellitus Accu-Chek ACHS, sliding scale insulin Hyperlipidemia Resume home medication DVT prophylaxis Resume home Brilinta Renal diet Full code DVT Brilinta Home medications Discharge Plan: Home Plan to discharge in: 24 Hours - Advance Directives Does patient have a Living Will: No Does patient have a Durable POA for Healthcare: No - Code Status/Comfort Care Code Status: Full Code Physician Review: Patient Assessed, Agree with Above Assessment and Plan Critical Care: Yes Time Spent Managing Pts Care (In Minutes): 55
[2023-01-24] MEDS ORDERED: ZOLPIDEM TARTRATE 10 MG TABLET PO PRN (21:09)
[2023-01-24 21:46] VITALS: O2SAT 99
[2023-01-24 22:16] VITALS: BMI 28.5
[2023-01-24] MEDS: NA CHLORIDE 0.9% 1,000 ML IV SCH (22:48)
[2023-01-25] MEDS ORDERED: HEPARIN 5000 UNIT/ML 1 ML VIAL SQ SCH (01:00)
[2023-01-25 03:34] LABS: Hematocrit 42.6 % (39.6-49.0); Lymphocytes % 34.4 % (15.3-44.8); MCV 87.9 fL (80-100); MPV 10.8 fL (7.6-11.3); RBC Red Blood Cell Count 4.85 M/uL (4.33-5.43)
[2023-01-25 03:57] LABS: Albumin 3.1 g/dL (3.4-5.0); Bilirubin Total 0.4 mg/dL (0.2-1.0); Magnesium 2.8 mg/dL (1.6-2.4); Potassium 4.1 mEq/L (3.5-5.1); Protein, Total 6.2 g/dL (6.4-8.2)
[2023-01-25] MEDS: NA CHLORIDE 0.9% 1,000 ML IV SCH ×2 (08:10→08:34)
[2023-01-25 08:25] VITALS: BP 136/72; TEMP 97.9
[2023-01-25 09:59] LABS: Specific Gravity 1.013 (1.005-1.030); Urine Bilirubin NEGATIVE (Negative); Urine Blood Negative (Negative); Urine Clarity Clear (Clear); Urine Color Colorless (Yellow); Urine Glucose 4+ (Over) (Negative); Urine Protein NEGATIVE (Negative); Urine Urobilinogen Normal (Normal)
[2023-01-25] MEDS ORDERED: D50W 25 GM/50 ML SYRINGE IV PRN (11:44)
[2023-01-25] MEDS ORDERED: GLUCAGON 1 MG/VIAL IM PRN (11:44)
--- NOTE | 2023-01-25 14:29 | P.CNS ---
Date of Consult: 01/25/23 Reason for Consult: indy Requesting Physician: jose hahn Chief Complaint: dehydration History of Present Illness: 62M w/ PMHx of Htn, DM2, CVA, & CAD s/p PR s/p PCI, who p/w muscle cramping on bilateral distal LEs. He reports having excessive sweating for the past 3 days as he has been working outside in hot weather. He denies having any dysuria or flank pain. He denies chronic NSAID use. he is referred to nephrology for INDY with serum creatinine 2.8 (25) on admission. He denies prior history of kidney disease. He received IV fluids. GFR improved from 25 to 32. Had GFR 45 in 2020. Unclear if he has CKD3 at baseline. There is no rhabdomyolysis. His CPK level is 252. Allergies No Known Allergies Allergy (Verified 12/04/12 10:32) Home Medications: Aspirin [Aspirin EC 81 MG] 81 mg PO DAILY #0 tablet. 12/13/12 Amlodipine [Norvasc*] 5 mg PO DAILY #30 tab 01/25/23 Atorvastatin Calcium [Lipitor] 80 mg PO BEDTIME 01/25/23 Glipizide [Glipizide Xl] 2.5 mg PO DAILY #30 tab 01/25/23 Ticagrelor [Brilinta*] 90 mg PO BID 01/25/23 - Past Medical/Surgical History Diabetic: Yes -: htn -: History of PR -: 6 PCI on Brilinta -: History of CVA -: Iji-yyaxmbm-hzzmqglgf diabetes mellitus -: hernia -: 6 PCI - Social History Smoking Status: Unknown if ever smoked Alcohol use: No CD- Drugs: No Caffeine use: Yes Place of Residence: Home Review of Systems General: Unremarkable Eyes: Unremarkable ENT: Unremarkable Respiratory: Unremarkable Cardiovascular: Unremarkable Gastrointestinal: Unremarkable Genitourinary: Unremarkable Musculoskeletal: Other (bilateral leg/foot cramping) Integumentary: Unremarkable Neurological: Unremarkable Lymphatics: Unremarkable Physical Examination Temp Pulse Resp BP Pulse Ox 97.9 F 66 16 136/72 98 01/25/23 08:00 01/25/23 08:00 01/25/23 08:00 01/25/23 08:00 01/25/23 08:00 General: In no apparent distress HEENT: Atraumatic, Normocephalic Neck: Supple, JVD not distended Respiratory: Clear to auscultation bilaterally Cardiovascular: No rubs, No murmurs Gastrointestinal: Soft and benign, No guarding Musculoskeletal: No clubbing, No swelling Integumentary: No warmth Neurological: Normal speech, Normal tone Lymphatics: No axilla or inguinal lymphadenopathy Urinary: Other (no bladder distention) External genitalia: Deferred Rectal: Deferred Laboratory Data (last 24 hrs) 01/24/23 19:38: Sodium 131 L, Potassium 4.1, BUN 82 H, Creatinine 2.82 H, Glucose 162 H, Magnesium 2.9 H, Total Bilirubin 0.6, AST 28, ALT 40, Alkaline Phosphatase 80 01/24/23 19:38: WBC 10.80, Hgb 15.3, Hct 46.8, Plt Count 180 Conclusions/Impression: # INDY 2/2 heat exhaustion GFR improved from 25 to 32 Had GFR 45 in 2020. Unclear if he has CKD3 at baseline Dc IV fluid Drink fluids > 2L/d # DM2 Hold Metformin until GFR is consistently > 35 # Htn Cont current medication regimen # Hx of CVA, CAD s/p PR s/p PCI Cont cardioprudent meds # Dispo Ok to dc today Recheck renal panel + serum Mg & follow up with me in 2 wks
--- NOTE | 2023-01-25 15:51 | P.DS ---
Admission Date: 01/24/23 Discharge Date: 01/25/23 Disposition: ROUTINE DISCHARGE Discharge Condition: FAIR Reason for Admission: dehydration Brief History of Present Illness: 62-year-old male with a past medical history of lrf-snwszab-vfentmedk diabetes mellitus, hypertension, CVA, ID with 6 PCI, on Brilinta presented to the emergency room for dehydration. He reported excessive sweating for the past 2 or 3 days, he reports yesterday his blood sugar was elevated reports taking extra metformin. He reported working in the heat. ed labs CMP sodium 131, elevated BUN and creatinine BUN 82, creatinine 2.82, magnesium 2.9 elevated, estimated GFR is 25, CBC is unremarkable, troponin is normal at 6.9, CK is 252. Patient was hospitalized for further management. Hospital Course: Diagnosis Dehydration Hyponatremia Acute on chronic kidney injury History of essential hypertension unknown control Wly-rkfgacc-nhsdolodt diabetes mellitus Hyperlipidemia Patient placed on observation on the medical floor and hydrated with IV fluid. Serum creatinine only improved slightly. He was evaluated by nephrology Dr. Murphy. Patient requested to go home. Nephrology suspects chronic kidney stage III, deemed patient stable for discharge, and recommended follow-up with him in the office for further evaluation. Patient is on metformin which has been discontinued due to low eGFR. Metformin has been replaced with low-dose glipizide. He is on hydrochlorothiazide and olmesartan which have also been discontinued and replaced with amlodipine. Vital Signs/Physical Exam: Temp Pulse Resp BP Pulse Ox 97.9 F 66 16 136/72 98 01/25/23 08:00 01/25/23 08:00 01/25/23 08:00 01/25/23 08:00 01/25/23 08:00 General: Alert, In no apparent distress, Oriented x3 HEENT: Mucous membr. moist/pink Neck: JVD not distended Respiratory: Clear to auscultation bilaterally, Normal air movement Cardiovascular: No edema, Regular rate/rhythm, Normal S1 S2 Gastrointestinal: Normal bowel sounds, Soft and benign, Non-distended, No tenderness Musculoskeletal: No swelling Integumentary: No rashes, No cyanosis Neurological: Normal strength at 5/5 x4 extr Laboratory Data at Discharge: WBC 8.60 thou/uL (4.3-10.9) 01/25/23 02:51 Hgb 14.0 g/dL (13.6-17.9) D 01/25/23 02:51 Hct 42.6 % (39.6-49.0) 01/25/23 02:51 Plt Count 176 thou/uL (152-406) 01/25/23 02:51 Sodium 134 mEq/L (136-145) L 01/25/23 02:51 Potassium 4.1 mEq/L (3.5-5.1) 01/25/23 02:51 BUN 73 mg/dL (7-18) H 01/25/23 02:51 Creatinine 2.30 mg/dL (0.70-1.30) H 01/25/23 02:51 Glucose 285 mg/dL (74-106) H 01/25/23 02:51 Phosphorus 4.0 mg/dL (2.5-4.9) 01/25/23 02:51 Magnesium 2.8 mg/dL (1.6-2.4) H 01/25/23 02:51 Total Bilirubin 0.4 mg/dL (0.2-1.0) 01/25/23 02:51 AST 22 U/L (15-37) 01/25/23 02:51 ALT 34 U/L (16-61) 01/25/23 02:51 Alkaline Phosphatase 77 U/L (45-117) 01/25/23 02:51 Home Medications: Aspirin [Aspirin EC 81 MG] 81 mg PO DAILY #0 tablet. 12/13/12 Amlodipine [Norvasc*] 5 mg PO DAILY #30 tab 01/25/23 Atorvastatin Calcium [Lipitor] 80 mg PO BEDTIME 01/25/23 Glipizide [Glipizide Xl] 2.5 mg PO DAILY #30 tab 01/25/23 Ticagrelor [Brilinta*] 90 mg PO BID 01/25/23 New Medications: Glipizide [Glipizide Xl] 2.5 mg PO DAILY #30 tab Amlodipine [Norvasc*] 5 mg PO DAILY #30 tab Diet: ADA Activity: Ad gonzalez Followup: Kali Murphy [ACTIVE - CAN ADMIT] - (Within 2 weeks) Time spent managing pt's care (in minutes): 27
[2023-01-25] MEDS ORDERED: INSULIN -REGULAR HUMAN 50 UNIT/0.5 ML ML SQ SCH (16:30)
--- NOTE | 2023-01-26 11:46 | EKG ---
Test Date: 2023-01-24 Test Time: 19:59:22 Physical Medicine Teacher: JOSHUA MEASUREMENT RESULTS: Intervals: Rate: 75 KS: 146 QRSD: 96 QT: 384 QTc: 428 [place]: P: 81 [place]: 146 QRS: 19 T: 23 INTERPRETIVE STATEMENTS: Normal sinus rhythm Normal ECG Compared to ECG 12/12/2012 15:38:30 Left ventricular hypertrophy no longer present T-wave abnormality no longer present Electronically Signed On 01-26-23 11:44:19 CDT by Leonel Maloney
== END 2023-01-25 16:19 | disposition home or self-care (01) ==
LOC: ER 18:55 → ERHOLD 20:28 → 2ND 20:43
PROVIDERS: ADMIT Internal Medicine; ATTEND Internal Medicine
DX: N17.9 Acute kidney failure, unspecified (principal); T67.5XXA Heat exhaustion, unspecified, initial encounter; E11.9 Type 2 diabetes mellitus without complications; I10 Essential (primary) hypertension; I25.2 Old myocardial infarction; E87.1 Hypo-osmolality and hyponatremia; E86.0 Dehydration; E78.5 Hyperlipidemia, unspecified; Z86.73 Personal history of transient ischemic attack (TIA), and cerebral infarction without residual deficits; X58.XXXA Exposure to other specified factors, initial encounter
CPT/HCPCS: 96361; 93005; 85025 ×2; 36415; 83735 ×2; 82550; 84100; 82947 ×4; 81003; 84484; 80053 ×2; 96360; 99285; J7030 ×3; G0378